=== PATIENT | female | born 1985 | race Caucasian/White ===

== ENCOUNTER 2023-03-12 21:53 | Outpatient (OUT) | payer OTHER, SELFPAY ==
[2023-03-16 14:09] LABS: Age Gdln ACOG Testing Note (.); HPV Aptima Negative (Negative); IGP, Aptima HPV, rfx 16/18,45 Note (.)
== END 2023-03-12 21:54 | disposition home or self-care (01) ==
LOC: LAB 21:57
PROVIDERS: Visit Provider Obstetrics & Gynecology
DX: Z01.419 Encounter for gynecological examination (general) (routine) without abnormal findings (principal)
CPT/HCPCS: 87624; G0145

== ENCOUNTER 2023-04-18 11:16 | Outpatient (REF) | payer OTHER, SELFPAY ==
--- OUTSIDE RECORDS SUMMARY | 2023-06-08 11:19 | XMS_ITS | CCD ---
Author Name Unknown Address [address] [place] [id number] Organization [facility] Care Team Providers Care Ncr Operator Name Role Phone SARABJIT, DR AKERS Admitting Unavailable SARABJIT, DR AKERS Attending Unavailable MISC, DR BRIDGES Primary Care Unavailable SARABJIT, DR AKERS Consulting Unavailable ZIEBER, DR MADAN rBiggs Consulting Unavailable SARABJIT, DR AKERS Admitting Unavailable SARABJIT, DR AKERS Attending Unavailable MISC, DR BRIDGES Primary Care Unavailable SARABJIT, DR AKERS Consulting Unavailable Blunt, Jose M Attending Unavailable Blunt, Jose M Primary Care Unavailable VELASQUEZ Guerrero Admitting Unavailable VELASQUEZ Guerrero Attending Unavailable Blunt, Jose M Primary Care Unavailable Nora ENG, Hadley RManuel Admitting Unavaila ble Nora PA, Hadley RManuel Attending Unavaila ble Blunt, Jose M Primary Care Unavailable Nora PA, Hadley R. Admitting Unavaila ble Nora PA, Hadley RManuel Attending Unavaila ble Blunt, Jose M Primary Care Unavailable Blunt, Jose M Primary Care Unavailable Omley, Hadley H Admitting Unavailable Omley, Hadley H Attending Unavailable Blunt, Jose M Attending Unavailable Blunt, Jose M Primary Care Unavailable Blunt, Jose M Attending Unavailable Blunt, Jose M Primary Care Unavailable Blunt, Jose M Attending Unavailable Blunt, Jose M Primary Care Unavailable Blunt, Jose M Attending Unavailable Blunt, Jose M Primary Care Unavailable OSWALD WHIPPLE Attending Unavailable OSWALD WHIPPLE Attending Unavailable Allergies Allergy Classification Reported Allergen(s) Allergy Type Date of Onset Reaction(s) Facility (2 sources) Levamisole; Translations: [Phenergan] Drug Allergy 12-12-2016 [facility] Repository (1 source) Promethazine; Translations: [promethazine] Drug Allergy [facility] Repository Problems Problem Classification Problem Date Documented Date Episodic/Chronic Immunizations and screening for infectious disease (1 source) Encounter for screening for human papillomavirus (HPV); Translations: [ENC SCREENING HUMAN PAPILLOMAVIRUS] Onset: 03-06-2022 Episodic Other screening for suspected conditions (not mental disorders or infectious disease) (8 sources) Encounter for screening mammogram for malignant neoplasm of breast; Translations: [Encounter for screening for malignant neoplasm of cervix] Onset: 03-01-2022 Episodic Residual codes; unclassified (1 source) Family history of malignant neoplasm of breast; Translations: [FAMILY HX MALIG NEOPLASM OF BREAST] Onset: 03-18-2022 Episodic Results Test Name Value Interpretation Reference Range Facility Coding Summaryon 12-28-2022 Coding Summary HTMLBase 64 EjlanzcqASa5rDt+PGhlY WQ+PK5XKDJuQ96qnECsyH 3zO5JTCJzGQlruWGITJNl JRlBvphKfMV3quHOuPBWx IC8+TC6pLMLwGburmPPwi 4Z9xTL6D31vvm5uYTryzD O7OLAiZcRsgmebv9gmjAv 6IDcuNmluOyBt FMBofC23QOJ4sD94Rx03n EBinOGwq8xdgQw9HuLzOQ RnWGL4xQnsXUeup8XiIPY sG34ugLMxl3M8 KMIknZppjHRjEwJhuSQ5x L6dFLkfljnzm1uopnibBu g0oa22iBQjj9O7fBG0X6T usvI8ZDCgqKPl FlkygRSBfD5pqspfk7yrq bndWlNjQJOzXHa1AOt3SP RdwEitBlWzFH16IER2OAI gbcSpM9SiUZMg rLcbPdT5i9F2Hx0CF1FSG klhR3BHKDJGPGydoCQ+PC 08ml71F4SpBkhlQpc9TSE pZTZ8mOI0qZ2d YAOtMRxux2P6kPE7R9Faa zRfxt4sv6zxGOTnNGfwX6 6ayBDou7V9IIYttRB8TGL udSuePpJeoN96 Oyc+BGGjkRafo5EqIfvtx 8ikh1vpiNa7YtpoJHBecx LddAbjXGK5c1KjAo2nIJV ovGL0iHF3cP6q BfUgQeF6NZnfH483EaJdk GEsDkavM76uS5XhxVO+PH VrZuw1VLDkiOzzZU2hE5V hZGRpbmctbGVm wKbwYW6sWCNyqtmdGUJiy P3aDFBzE5p3SjJcRqA4ZE dsS7HuBGIwarglBv08aV9 tMhJlTjO4ODqh R1PcpsJ1GXQnbTNuETnrE NJ9J37wb0J3SSKrLGIkNU Q1oCW5oA8reNfjbbjsgPE mdDsgdmVydGlj INssAKtsV918NNWfhKgmQ kNvZGluZyBEYXRlOiAgMD kvMjEvMjAyMzwvdGQ+PHR tNBX9yXqiCIAj iLPtGKxdVp4awBxdzAxoQ L7mTUIifaeeVIYivF6cIH GctASgrSqeBD2tYSAayfr xg475BuRhAYK3 ECLlxYLnN0JldI5rRiNhP QYpSRRaG0LhgKIlRVwrW5 20HZsvFfE1ZRGgeiJoQ5U sLWFsaWduOiB0 p8X4Un5Tt5XfxcuaF9Ryz XAiIpDoFnwvQAi5J2OcTm wvdHI+UC23CRLwFU45ZVh 3EQI0qVcxWFhs VVCuQ1OdgD1dOjKfYGCeL GRkOyc+PHRhYmxlIHdpZH RoPScxMDAlJyBzdHlsZT0 fWa1xQLIxGBIh xEkbgVHrNhGkc7zyDRQqU CjjIQ4dnNfgH6WliEX8UJ Ksy4q6Hk49Y56dY5EmlBW +YEQfaNY4pXD6 hK8cLsBoEpQ7RPwyC207S zWbpHKhThpoa1wdw7umhE r7UpX4KHQzfwXkjFnyOAW 8y4FlFv53E92y IHdpZHRoPSIxNSUiIHZhb Egxiy8xuR4wWb1+PGNvbC T3uDM2yG1lEzVrNoS9TDb bB481IcCowNCe Ulkur8eux1yisYa3ZtNzV XUakhIkbStgGWF1z0VpKj 60H3DssRdgi3AeMxq4ms8 8dIRhf0N3lYJ8 H5TrGNKpsplutXDizHtyP D7lNURqngpqHFNdhL1jZY ZfG5q4HsHnSfW6GOovQ4M oqbM1TIPohEKw XCGteATGzW3qcewwh2fil mkzGxZlWTLbFUm2FXi4KP VxhUzeMzWdWZM1JfT1IUO 1yMEwxR3qsYgg adbqsC3mUdg+KYT2jRNna SRYKX8gFqtzqXI+PHRkIH I1kSndAMnpPRNxwG0sPLZ mN7d3IvNzCjQ4 HWmyM1CowlH6WBXauMEcR AUjoVWLzW3zfzmqo0zife eeYzBfLDFbDQu7IZk3PXX saWduOiBsZWZ0 KdD8OVK4jCDxjS4uzWjwd lpfzP6bVaq+QmlydGggRG F8ETj9P7SkMzk4VFBcbVn fCW7pcIVqEZpy Gy6afTnpdBsaKL2uXNZwf dwbn190LmBtk8hcBGVcrI LnYWqpERU5T04fw6G4IXU hWPPgKRR8zYG2 qH7fwOfvdcbniHXlsLadu iMbdYuaDWmrOCpzC699SA EooZopTdDtOJd0Q6EhXul 1OPOybEakPX5t tIEaILriRz8qsAetpAypB T1kFRBpxvzki693FgQod1 rvMTKzxGXwPRzzKZX2V70 hx9W8KSEtCVXt FXT2xPH4tB7akKelenuhy GVmdDsgdmVydGljYWwtYW vdX929WGDzfTsxZsLxoVl 1R8ScNfr5FTMt nExkJJ3nuHKvXGodAk7ax RfohIafKG9oTUIsqlbzv5 05VxEou0vtYCEkvNXzBXv mIIR6H27vm4W5 NEIdGJJbNKV5wKM7tT3sj GlnbjogbGVmdDsgdmVydG cdJLqiMAnqH852KGXjqNn nPlBhdGllbnQg VCihMWc2L1ExTtwsvTA+P Q64PXDnAY67lADguYPjy5 dlfHd1HbHkEIHhQWI4iSj zNSfan6IjXURx K21ivLZbm0S7BKHqfLubb SZuKuPcvWX6oE7mMBtwio pxy3hzbqufZkjpy1mcur9 8rU73G20yNCkd ZHRoPSIzMCUiIHZhbGlnb m3ciE6bDz6+DPPggYK4yZ Y9vE0iZHEkAfW7FHuaJ56 9InRvcCIvPjxj i8lei2ffpZz3NzJ1ABMgm tOxjYzqVGY1s2PrBu52V0 9sIHdpZHRoPSIyMCUiIHZ ulLjppi6ndU2t Ii8+BBTpdOX3nKI2wI5yT dGkTiE0XXemM540HdQsjU TmObwmA08tC8KrrEY+PHR lTnr2NSBxuNvy HH0cvDIjDFhaMf2nLKS0A dJtUpKlNRghX9NgPZRhuf oofcuajUU3RJPtGSUvhR9 5Zm9kjJzxUSTr eJOHcF7rymkyq8geiegqO bMqVQZcVOh3RZs7QTRxmY blZlFbQJQ4MyS3EAW3wTR xkM1qlNdjydbk yN8kK2NwMQOepydtKs65p K8hSzJrLkH8SRzdLqt+RU LCC38ALzafGokGF0xQKSX NEoJTKG21EK09 xGLcy0E3pOM9F5UoWFPhv tizvhfujMO1JIJpJNPowA 25kSNoOIxjTp9jb6Z3d58 8HJPzZZLubX37 Ue1zvHapCLSrmPASqF6pr xtwt1wulxiuDiAgEHUeTK r8ZWj6ADEebPizJgJpOTU 4FsX6ZJG5uGDn pG7tlGecgbrdmO4uMms+M HMyOGEgYCp3ISsnwSJ+PH IeVPJ7xEfpHBhyMVMgoN9 hUOInS9v4WmAe GrD9CFilO2FxJWGiygjjK u32sV1lQgGuWvB1LRijU3 NbuoZ3QCLzmZMbGLfhBXA 8T25hs2W6NTOr DWZfOJK2zPB4uT6qoHdcd jogbGVmdDsgdmVydGljYW kcRAcdN872FJNrqMvlHlU 7WSmsQUAjZD30 DU17pRVsn0Q0oBB7U8GbC IBkeikwuhpggNC5BPNiWL FnqL78yDChFUpnCm4xw0B 0c541POXcVXWy dX18Uv1cuOumGWZpeAHAh G6pspruo1witrkuVnGaVH IlHAi8XZd5EUQflWqqSzQ hJTC4JiR7OPB5 sPEgzG8syTnflssynC2aB yc+WlZYTPwLJV47IA93yH Vkm9Y9iMG4H0GuSZHorxa edctiwLW1WINs DPNyhA26uIFwMBxlVt7da 1R3x708CHCcLDJtaQ54Cw 6opYnlOBZqnLTDcY2xfxl ig1kgfcaeLiGo ABJsZRe2WLv5CASqiDzdB xXoNSU4PkI3OMJ5jAZmjL 6ogShpodqobX5uCfp+T1A 0V3VxVgbnvIO+ UF01DPDgVY23oFAhmQIiv 5ervVy6ZxUbGWOcMNB2jD hmASkzi7ReBQLmU84czLM as9X4ZFXptQuf nNLjLrOafGS0jB7jSFnct zrpp7apejfpNqeeh7fast 76cO97L15vDIrtRVOfCAP zMCUiIHZhbGln dx1xxB5nEh4+GDDrsCH2j HP2eY5qVnTcYjA5XFijX0 02MmSbeMBxYjont6yzx5y juBz8FuSeQJGr btZkdUotXVY0b8EdSa61J 29sIHdpZHRoPSIyMCUiIH IlcCpvdp5bvK0gSk7+PC9 of0fsgv09jO78 dHI+QCGiGOR2rIwkLAqxZ RMaaF5aXFyqBmF6GVMpQk TrvU59pMAuDUfrNy6rcPr edXaiLS9yENIl tkzvb113YuVax2mpMFPin HWgVFziOLA7B41kf4Q9XM FaWIOmNUR4hLB4nF1ahGi nbjogbGVmdDsg esSnqBkqROwjWTwzN225J KJhcTqzIgYurIPjU9hvmj GBXL4rAbrssUL+PHRkIHN 0eWxlPSdwYWRk yQ4mDJLtA3r1KbPyEwT8F ZnjK8AcuhE7KJGfuXLwAT NwgMHQtM1imtlsh6wdluh gIzAwMDAwMDt0 UTj1OEUhtBsiAuEfIQK0E rC9WKF1rVFuoU7pcHxsgu ykzC6qTll+RklOOjwvdGQ +NZSeYBV8hAtt XJffZTPpaX8dJPDnL5y2N pFmIlU5WNcmK0OtlfE5HA FjqZEgBDGlcNJZgG7nnve bu9ineubcGcUf KNIuGMh3ZOb4HALgjBkcM zWcTUJ9YgB6NRG0xHYaeI 8xoOzzsenrmY2hYvu+TVJ OOjwvdGQ+PHRk OAI6zRoxFOwnJSOymB5vP CWcN5m9TdGoDkL8KVxyY8 OqgiS8ZOSyxBWnTCAepLK YcG8izxozr3au yfljEoEmMOLqJHa1MCm7P IBmlObuCxVyFHZ8LjL0BI C3bDKjcE9veWhwzdlnnH1 wOyc+TRO2IWB0 XQ47ON26D3FgOiodvGTsh +PHRhYmxlIHdpZHRoPS kpFTZaVzClhQaaRI5jFb7 yZGVyLWNvbGxh cHN (more content not included)... Normal [facility] C Throaton 12-22-2022 C Throat Ordered by Discern. Normal throat osmar isolated No pathogens isolated Normal [facility] Comment on above: Performed By: #### [id number] ####[facility] (DEFAULT)[address] [place] [address] ED Clinical Summaryon 2022 ED Clinical Summary [facility] ? Urgent Care [address] [place], [place] [id number] Clinical Summary PERSON INFORMATION Name: MARTINA PACK Age: 37 Years Sex: FEMALE : 1985 MRN: Acct#: Visit Reason: Throat pain - Adult; CONGESTION, SORE THROAT, COUGH Arrival: 12/20/2022 09:57:20 Discharge: 12/20/2022 11:04:00 LOS: 000 01:07 Check In: 12/20/2022 09:57:20 Checkout: 12/20/2022 11:04:00 Address: [address] [place] [address] PCP: Jose Larson MD PROVIDER INFORMATION Provider Role Assigned Unassigned Mindy Bailey [employer]ARY Nurse 12/20/2022 10:00:43 Maria Guadalupe Guerrero PA-C ED PA 12/20/2022 10:03:32 VITALS INFORMATION Vital Sign Triage Latest Temperature Tympanic Temperature Temporal Artery Pulse Rate O2 Sat 98 % 98 % Respiratory Rate Blood Pressure /60 mmHg /60 mmHg MEDICAL INFORMATION Medications Given: Allergy Information: Phenergan; promethazine PHYSICIAN DOCUMENTATION DISCHARGE INFORMATION: Discharge Disposition: Home Discharge Location: Home PATIENT EDUCATION INFORMATION Instructions: Sore Throat Follow-Up: With: Address: When: Jose Larson MD R [facility] [id number] [address] DIAGNOSIS: 1:Viral pharyngitis Patient Understands: Comment: Normal [facility] ED Patient Summaryon 023 ED Patient Summary [facility] ? Urgent Care [address] [place] [id number] PATIENT DISCHARGE INSTRUCTIONS Patient Information Name: MARTINA PACK Age: 37 Years Date of : 1985 Reason For Visit: Throat pain - Adult; CONGESTION, SORE THROAT, COUGH Arrival Time: 12/20/2022 09:57:20 Primary Care Physician: Jose Larson MD Attending Physician: Maria Guadalupe Guerrero PA-C Comment: Patient Education With: Address: When: Jose Larson MD [facility] [id number] [address] Sore Throat A sore throat is pain, burning, irritation, or scratchiness in the throat. When you have a sore throat, you may feel pain or tenderness in your throat when you swallow or talk. Many things can cause a sore throat, including: ? An infection. ? Seasonal allergies. ? Dryness in the air. ? Irritants, such as smoke or pollution. ? Radiation treatment for cancer. ? Gastroesophageal reflux disease (GERD). ? A tumor. A sore throat is often the first sign of another sickness. It may happen with other symptoms, such as coughing, sneezing, fever, and swollen neck glands. Most sore throats go away without medical treatment. Follow these instructions at home: Medicines ? Take pafx-tsd-qvelqof and prescription medicines only as told by your health care provider. ? Children often get sore throats. Do not give your child aspirin because of the association with Nba's syndrome. ? Use throat sprays to soothe your throat as told by your health care provider. Managing pain To help with pain, try: ? Sipping warm liquids, such as broth, herbal tea, or warm water. ? Eating or drinking cold or frozen liquids, such as frozen ice pops. ? Gargling with a mixture of salt and water 3?4 times a day or as needed. To make salt water, completely dissolve ??1 tsp (3?6 g) of salt in 1 cup (237 mL) of warm water. ? Sucking on hard candy or throat lozenges. ? Putting a cool-mist humidifier in your bedroom at night to moisten the air. ? Sitting in the bathroom with the door closed for 5?10 minutes while you run hot water in the shower. General instructions ? Do not use any products that contain nicotine or tobacco. These products include cigarettes, chewing tobacco, and vaping devices, such as e-cigarettes. If you need help quitting, ask your health care provider. ? Rest as needed. ? Drink enough fluid to keep your urine pale yellow. ? Wash your hands often with soap and water for at least 20 seconds. If soap and water are not available, use hand jewelry facer. Contact a health care provider if: ? You have a fever for more than 2?3 days. ? You have symptoms that last for more than 2?3 days. ? Your throat does not get better within 7 days. ? You have a fever and your symptoms suddenly get worse. Get help right away if: ? You have difficulty breathing. ? You cannot swallow fluids, soft foods, or your saliva. ? You have increased swelling in your throat or neck. ? You have persistent nausea and vomiting. These symptoms may represent a serious problem that is an emergency. Do not wait to see if the symptoms will go away. Get medical help right away. Call your local emergency services (911 in the [place] Do not drive yourself to the hospital. Summary ? A sore throat is pain, burning, irritation, or scratchiness in the throat. Many things can cause a sore throat. ? Take qgqy-iag-peovaqx medicines only as told by your health care provider. ? Rest as needed. ? Drink enough fluid to keep your urine pale yellow. ? Contact a health care provider if your throat does not get better within 7 days. This information is not intended to replace advice given to you by your health care provider. Make sure you discuss any questions you have with your health care provider. Document Revised: 06/22/2021 Document Reviewed: 06/22/2021 ElseLecture[employer] Patient Education ? 2022 iPrint. Medication Information: The exam and treatment you received today in the [facility] Emergency Department were for an urgent problem and are not intended as complete care. It is important for you to follow up with a doctor, nurse practitioner, or physician?s administrative assistant receptionist for ongoing care. If your symptoms become worse or you do not improve as expected and you are unable to reach your usual health care provider, you should return to the Emergency Department, we are available 24 hours a day. For those patients who have received Radiology results, the interpretation of your X-ray as given to you by our Emergency Department physician is only a preliminary report. The Radiologist will review your films and if there is a change in the diagnosis you will be notified by phone. Please make sure you have provided a working phone number so we can reach you if necessary. In the event that you had a lab cultu (more content not included)... Normal [facility] Strep Aon 12-20-2022 Strep procedure control Pass Normal [facility] Comment on above: Performed By: #### [id number] ####[facility] (DEFAULT)[address] [place] [address] Streptococcus A Negative Normal Negative [facility] Comment on above: Performed By: #### [id number] ####[facility] (DEFAULT)[address] [place] [address] Coding Summaryon 08-11-2022 Coding Summary HTMLBase 64 LedvrrefSXk4bTj+PGhlY WQ+VU9AEREdA27wiXFbqO 0RF1dFBS4ZKVXFRGJKZR5 TDT3xqQZ8YIwxB3OacvVa BhjlaRPeQP04XEy3NNF9p PdbIPqvgM6bcOToP0q2Ol QxXK21eC35ENahWXLcWiK 3LjZpbjsgbWFy G9smIhZzyRCmPpq+PHRhY mxlIHdpZHRoPScxMDAlJy LfiLadYC0mAh0sCLCuBOW vbGxhcHNlOiBj k0hxVQBrBIycJO8rhTiiC 5HqmBK5MUPsy9k9Uy33rV I+IWGgWRL3vLgdRChen94 0IdTdn2sqLUW9 nNIbJQmiIPU4Q55be9E0N IPjDOAaHAC7jFF9cU6csY pfytmwW9LthDSvEwQ8HGR 7xVXmsO4wmWmi woqhvM9eYff+I67XOF0UR UJPUK6DUvc7Q7BvUqdfyD I+IE26UTUrFY24aERbtAH rr2cxnPd7EcNj JLKuGNK2wTgiDLqch2MxZ RPjA80hpGNfp9M6ADSgvW svoVOdBvHnmTV3uV7fTFb wqectw7ijplch Wwymf2thab50kD81S28yG ZvbZQEaXTW6GOWxYVTpkE ibnw6snX8mUb4+MMjan8g ka3ifkJq8LyBq HCGerjGilKznHFF2c7JfI x85T7ZjhYnwy5IxEjr7pf 83dYGtj7N8jQR5TQoqZSK blL2yUQmcNzY6 LCHzClSwuL71wCYmVDzxN f4hzDwerImkBA9aXRRreh heYNKlwL6zBVJpoLTdgQt qEX1bGXFpnhyr w144JtEdKBT7YIQhaWEdG 1SmcN9hLaSnNRDcZDYiC8 GgfMXvODuoH159DOstAfM 5TUUerdAkK8Ro ONOngHcrIhN7g5S4Zv9Er 2DvohotEYS3PUhqTOL6Xj E0XjIuLmT9I9IcEkr6KOX rjTpwHV5jT6Av UOPlspoljnnnvEZ0JIVsV CLsvQ84iLGzDJpnGu0iu4 S5s819YBRqKIXwuZ29Tl0 udDogMTBwdCBU oF8rfgqmt0pyanjySiPjX EJwISw0YZa0EMUhuZkrYz SgDLC1MzH2CJM3rAPltC3 rcJeelgrowX4p Oyc+R22cdQ6yIDL2DQP9w fwyUYKrzcBpZS06AW22E5 RyPjwvdGFibGU+PGRpdiB exEynKO2fZjKx a0yxv7VmGMnnT9BwMVAmT DqwTyq4HWBrWIT1xZQ8yE 3sTGNiHBjyv3D1rRP4Q7M vgyVjuj3vj4wi QHQsOByyL16rlTZmv4E3G SDbdFM1IWLhuWddXqWzoD 93Oyc+WZDcdJqkb8EcMyp wk1waq3kjwYk8 OyKyWQCtesAtpLtaJCN9y 9PbGk81Y65fFIdsADTtIS UmTEXxGPTswZhxxk2hdR2 wIi8+PGNvbCB3 wKS5mF3tRWToHrD1CGsvI 267LlOugFEvOwppy3jic2 jxdWw4XeEsMNGtxwQdiXx yXFH4w0JiQa51 U36zPGxxDEXpEZQyQOXkV RFwrMuutq8miB7jYh3+PC 4jz7erat89vT35hKZ+PHR gANA8gIukHQgp YSLkoA0nZOmtAkV5AUHeY kCmxH64qFTtQEdbVf1phK edpYgzVR3nPGZstbhvl13 0LxDki9ijJDAp nXSbYZdtYMS5I99kg6D0E NLiEGFsCVI9dUV4rB9feW lnbjogbGVmdDsgdmVydGl vOBqwAJxuJ922 IHRvcDsnPlBhdGllbnQgT qQdOPn4N0EoSvz9NKQvmS mzXF2ooTApXWspEh5bhSa euIhoMV6yZFGg gcqpb587TvZsn8viRVAtv LMeRWsyWLF9K36dy5X2DL IdOSYwLPK8fID6aG9kmGj nbjogbGVmdDsg ijOslLfiUZfnMTrmC429O HRvcDsnPkJpcnRoIERhdG P8PK36HW76yVDhy4G6vOO 8S3GuDMUqxwom vrnccKF8HEOsFEYmtC30L p2skItiUt8eHWTqAKQ3BM SsgTCpZ7DkrA6mWeRgUPN qJBPyY2OoaRUg TTrqP231DOfcVeC2NQXqj sUzD2JkDWGfxCqlMjE5e6 F7Oq2LN1J3ZI42LR41rKS cf4P7gGI4R3Ru CTVavtiwzmsgtMK6SOPpO QYrnY23Hb9emPsiWl6vGH LhOUP6TCYpiFVyS5CccP7 yOiAjMDAwMDAw A4VojCUuVMmbD220BPrnX oL7NCDikqEwX1SwHQPbfQ ywPaV4u3Z2Nl0BWKv4QC9 7OQ77tXQzs5D3 sSR6N7YwHGEmvzbufcina SA6RLCtLRFvxE27Xd9yxI pgRh5aXIIgROA4KPGmsSG rA4SsdU5yLpOo XIOtIWRuS4PikEGxZXtkB 262GMfvXkU9CYTleaEkT7 XdFVUrdNooJcY3q1N9Yx1 SMOMyKV02UXG6 dLA2DO77PN19T2XgIxnvt GFibGU+PHRhYmxlIHdpZH RoPScxMDAlJyBzdHlsZT0 pJi7dATWnFMZz jLssoVDaIePrl1hyMSYcC UfwVJ5dmBitZ6OxtHM5OK Qno8f2Zi88M55tO6WliDF +YLPutBK1kKB8 wE9tPlSlEmG9SQwyQ571G xEabHUmGhdwz1lui5mfiD u3BiJ3OBLmrzPoaIeyDKE 4z3YfGk94H52k IHdpZHRoPSIxNSUiIHZhb Yfpky7umM7fBt5+PGNvbC P3wUP1cU1qTzLaYjB3JOl sG206CuSvuQBn Fyorc3asd4jigLr6LgEpP YLwuuQmpAmcXYF1g4RbTi 12N7YfmNzky9UqAdh4sr9 0dWYpb2O3jDT4 S4RaIDEaddnbuJNmwAysZ V6dXLTxpptyOQOoaP4eBO JuX9m5ZtPsPhV3DTinL3Y hgzA2FUNxnLUi BQmbJRT0Z53zk7N9AWTeY PYlOGO5dUS2kT0tcQfjqb ogbGVmdDsgdmVydGljYWw uDDfmP890SYPk nEjeOIXjwP4iPGLfgDTnw GvwES9zDKMdtjsbQzFOCJ 2GCKFzEI0EC29ZZVYJOR7 FRTwvdGQ+PHRk VWG3wPiuGTbvUNYgaY7oK IYqD3a5BpPnRpP9CCaeK2 KmXSTyqcqjOz96kJ6wRvB rKvE4TNwbS2Jh xnL6GNJvzXNmETozVWY2M 17op7M2OKGcONAxNEA7lJ A3oR2gsHmstfwvuYLtaCm gdmVydGljYWwt QKkxM985UVKwiXydSkAtN xF8GtP8IMY7J5CpUbe5OB QhmSzlSL3zvCSeNUbdEx9 kkSoemMytHD7h ODFghqyuLFCjaT1kJIBhr WOhjKkjHN8vMSUnklxtc5 35KcUuDBD1CPSgmAJcG7Z mhC9vDuCvLDTj KPAwG4GrzVMiEPlbI175L MdsJvR3IVVyssTfA0PcQJ KnnMdoIlD3h4G1Gc7jAFN ZZWFyczwvdGQ+ PFXoCTS4xDagWZgeRYKwp J2eHIUqA9f4UjExRqL7TY xhT7EbOIWwbzozHb80kP8 tKiKlEfC7KMvs H1QbsnF1CGJqdYObQVueK MJ3B02xn0J8WOQlMVNiUX K4jML9cZ7ujIeyhnnblFW mdDsgdmVydGlj MHaxWQopP178JAEtxQmvO kZFTUFMRTwvdGQ+PHRkIH J8kHlvAYsfXAEsjW9nOQL hC0o2OyBwWnE4 DWadE8TuZWDweowuSw85b M1vEdDxGeR9ONeoP3Bxyp N2NJXqmXTlRNngRUX7D79 mp9X2UCGvFMLx QXQ5iME8qA9bkVaulnoav GVmdDsgdmVydGljYWwtYW ddK714FNThbChgTfFtCSV gPU2wqYpxiQY+ AK32te85U3YpFcwdJno7L MXxJRC3yGY6xA1rVWKaVL qcz7G3mDN9I5WwxdBhgs9 oh9yoSOOrXKcn T56zrSMmy2R1CCIjuHJ0I QJizObaPgVyeY92Mbp+PG BzvUiwm3CfQjkbf7tap0z deJn7HqRlUNKe ueAzdQzgOBN2e6MeZk05E 29sIHdpZHRoPSIzMCUiIH OisZnvap5cmR3yNr1+PGN rgLS2dLC2eM5y PjObMwL4IEvpO285ZmDlj IPpFizew6sdj0tyjPl5Ur QnOQSxyoWndAzdDEP5r1A fAi96Z9MrvFwa g1ZtQfc0vb94yFQzj3F8y LP7J7IuALVwpqkgzSKuaN yaDM6wVQPcpgzxQHQxoI7 tKFStD9j7LvVy SnF1CVgiK5JqolF1ZBUed NDhBMEmzMDApC3dxvtvt8 xekmdsYtKuOPQdJWw6ZPq 0LWFsaWduOiBs UTN1NtD5IWD9uYQbfD4zt YjhqydauV7hJjf+UGh5c2 aaiOUkGG7yvJQ2KC69SD9 0hLGgo9P1cIY9 E7UzERBwoptxahqxdQW3M SIjAHVofC78Ql5tbWtlHa 6aBUBxREA8MTMlyKLaZ7Q ouP4zAsVoQZWp UOCwS7SjfLOqTUeuT330W AsjScH7LYSbcxSvY6OhTS SjzVwaFnM0g7H8Qj6SXO8 5XO23YM63aMCa i5J3cIP6V0XbNNBqckeam qwnsQI5PZIySKXwyU60Fm 8nwWbfId3cEGEfSSL9OLN anFCiX5SoeU7e EwDbZLBtEVPsC7KtoBDkU DtnG093KOciKxN9MRZmtj GsL2WiMGFdsCygAcR3q9X 9As0YBd33FM38 TX88aOQvu9Y6pMD6B2BgS NEldlhszrmjtQB5CFFlWN KvtF92Fw8fmZiiZn5yYOX aUYB7PVTdnFFn J4LnkJ0nGcIkLLZdXMSrY 6BbfSWjLXgvY861VOljIc Y7LWKkhxMcP9OfHUCrkQl bFsR9z1Z0Gq4E AKtkjbf1S7BcVjadpPN+P O06LXDqHV61pXXniXBcm4 yukBz0KtSvJBZdXQJ3yLa lSPrzu3EtLYPj Y29 (more content not included)... Normal [facility] .Auto Diff 1on 08-06-2022 Auto Vance % 4 % Normal -12 [facility] Comment on above: Performed By: #### 2 [id number], [id number], [id number], 8542988, 48113436, [id number], [id number] ####[facility] (DEFAULT)[address] [place] [address] Baso Abs# 0.0 x10 Normal 0.0-0.2 [facility] Comment on above: Performed By: #### 2 256774, [id number], [id number], 4839518, 09781253, [id number], 2475163 ####[facility] (DEFAULT)[address] [place] [address] Basophils/100 WBC (Bld) 0.4 % Normal 0.2-2.0 [facility] Comment on above: Performed By: #### 2 878654, [id number], [id number], 7627151, 24212209, 6387951287, 2517201 ####[facility] (DEFAULT)[address] [place] [address] Eos Abs# 0.0 x10 Normal 0.0-0.4 [facility] Comment on above: Performed By: #### 2 188287, [id number], [id number], 6747768, 83552303, [id number], 2621895 ####[facility] (DEFAULT)[address] [place] [address] Eosinophils/100 WBC (Bld) 0.6 % Low 0.9-4.0 [facility] Comment on above: Performed By: #### 2 124793, [id number], [id number], 0863451, 68742512, 1972104068, 2856910 ####[facility] (DEFAULT)[address] [place] [address] Lymph Abs# 0.9 x10 Low 1.3-2.9 [facility] Comment on above: Performed By: #### 2 828427, [id number], [id number], 3866593, 75638557, [id number], 0048467 ####[facility] (DEFAULT)[address] [place] [address] Lymphocytes/100 WBC (Bld) 11 % Low 14-48 [facility] Comment on above: Performed By: #### 2 046477, [id number], 8857832804, 2595439, 85736575, 0823994016, 2121915 ####[facility] (DEFAULT)[address] [place] [address] Vance Abs# 0.3 x10 Normal 0.0-0.8 [facility] Comment on above: Performed By: #### 2 247441, [id number], 3575569178, 0913644, 37562630, 8896827049, 5151638 ####[facility] (DEFAULT)[address] [place] [address] Neut Abs# 6.9 x10 Normal 1.5-9.2 [facility] Comment on above: Performed By: #### 2 514820, [id number], 8652692810, 9062855, 18370576, 9811817865, 0480424 ####[facility] (DEFAULT)[address] [place] [address] Neutrophils/100 WBC (Bld) 84 % Normal 44-88 [facility] Comment on above: Performed By: #### 2 904480, [id number], 3576295965, 2806674, 06906590, 4022984820, 8504990 ####[facility] (DEFAULT)[address] [place] [address] CBC w/ Auto Diffon 3 Erythrocyte distribution width (RBC) [Ratio] 12.9 % Normal 11.5-15.0 [facility] Comment on above: Performed By: #### 2 946075, [id number], [id number], 9764827, 45253042, 7815936682, 7053694 #### [facility] (DEFAULT) [address] [place] [address] Hematocrit (Bld) [Volume fraction] 39.8 % Normal 33.7-40.4 [facility] Comment on above: Performed By: #### 2 795920, [id number], 1072826824, 6853605, 72312585, 3233817496, 8545357 #### [facility] (DEFAULT) [address] [place] [address] Hemoglobin (Bld) [Mass/Vol] 13.3 g/dL Normal 11.3-15.9 [facility] Comment on above: Performed By: #### 2 428346, [id number], 3166321081, 4623161, 32631796, 0751655794, 1510685 #### [facility] (DEFAULT) [address] [place] [address] Man Diff? Auto Invalid Interpretation Code [facility] Comment on above: Performed By: #### 2 937381, [id number], 1473373751, 4300150, 38369129, 3355543129, 2242638 #### [facility] (DEFAULT) [address] [place] [address] MCH (RBC) [Entitic mass] 29 pg Normal 24-34 [facility] Comment on above: Performed By: #### 2 063921, [id number], 7729242105, 5141737, 84838928, 7373818328, 6436094 #### [facility] (DEFAULT) [address] [place] [address] MCHC (RBC) [Mass/Vol] 33 g/dL Normal 26-37 [facility] Comment on above: Performed By: #### 2 531179, [id number], 7964957006, 3485204, 27904856, 1072803182, 7315496 #### [facility] (DEFAULT) [address] [place] [address] MCV (RBC) [Entitic vol] 87 fL Normal 81-100 [facility] Comment on above: Performed By: #### 2 316523, [id number], 2956040735, 7563292, 41628424, 9294905875, 2393812 #### [facility] (DEFAULT) [address] [place] [address] Platelet 289 x10 Normal 138-427 [facility] Comment on above: Performed By: #### 2 [id number], [id number], [id number], 7091357, 90725952, [id number], [id number] #### [facility] (DEFAULT) [address] [place] [address] 73621 Platelet mean volume (Bld) [Entitic vol] 8.6 fL Normal 6.3-10.2 [facility] Comment on above: Performed By: #### 2 055526, [id number], [id number], 3687179, 24885062, [id number], 0828626 #### [facility] (DEFAULT) [address] [place] [address] RBC 4.55 x10 Normal 3.70-5.30 [facility] Comment on above: Performed By: #### 2 457777, [id number], [id number], 6986904, 97166234, [id number], 3575442 #### [facility] (DEFAULT) [address] [place] [address] 61735 WBC 8.2 x10 Normal 3.5-10.5 [facility] Comment on above: Performed By: #### 2 478047, [id number], 9055081463, 3953766, 51541716, [id number], 2929845 #### [facility] (DEFAULT) [address] [place] [address] 87843 CMP Standardon 08-06-2022 Breakpoint Chem Normal [facility] Comment on above: Performed By: #### 2 078899, [id number], [id number], 9438744, 39051732, 2430129553, 7362852 ####[facility] (DEFAULT)[address] [place] [address] 47776 eGFR Non AA >60 Invalid Interpretation Code [facility] Comment on above: Performed By: #### 2 342396, [id number], [id number], 1913177, 02131950, 7250007559, 5857464 ####[facility] (DEFAULT)[address] [place] [address] 78038 eGFR AA >60 Invalid Interpretation Code [facility] Comment on above: Performed By: #### 2 501303, [id number], [id number], 5893446, 97380194, [id number], 4884447 ####[facility] (DEFAULT)[address] [place] [address] 51495 Albumin [Mass/Vol] 3.8 g/dL Normal 3.5-5.0 [facility] Comment on above: Performed By: #### 2 978579, [id number], [id number], 4979485, 12501812, 3614359962, 9622767 ####[facility] (DEFAULT)[address] [place] [address] 72819 Albumin/Globulin [Mass ratio] 1.0 {ratio} Low 1.4-2.6 [facility] Comment on above: Performed By: #### 2 167342, [id number], 3389538658, 2429493, 51777412, 4998151109, 5750648 ####[facility] (DEFAULT)[address] [place] [address] 49055 Alk Phos 38 IU/L Normal 32-91 [facility] Comment on above: Performed By: #### 2 875696, [id number], 9786666401, 6525933, 22213575, 3258081518, 8804969 ####[facility] (DEFAULT)[address] [place] [address] 56865 ALT [Catalytic activity/Vol] 43.0 U/L Normal 14.0-54.0 [facility] Comment on above: Performed By: #### 2 451069, [id number], 7491231679, 6031604, 76362987, 2862569559, 8978315 ####[facility] (DEFAULT)[address] [place] [address] 31089 Anion gap [Moles/Vol] 15.3 mmol/L Normal 5.0-19.0 [facility] Comment on above: Performed By: #### 2 632504, 0907008359, 1903265559, 9632941, 20311857, 2173740299, 5913320 ####[facility] (DEFAULT)[address] [place] [address] 90492 AST [Catalytic activity/Vol] 42 U/L High 15-41 [facility] Comment on above: Performed By: #### 2 245527, [id number], 8049671576, 3601434, 72820544, 1904933354, 2464537 ####[facility] (DEFAULT)[address] [place] [address] 75140 Bili Total 0.9 mg/dL Normal 0.3-1.2 [facility] Comment on above: Performed By: #### 2 425129, [id number], 8365339482, 9627150, 06110483, 0958403754, 8479182 ####[facility] (DEFAULT)[address] [place] [address] 07256 Calcium [Mass/Vol] 9.1 mg/dL Normal 8.9-10.3 [facility] Comment on above: Performed By: #### 2 546342, [id number], 1896874260, 7403326, 79136676, 1471934761, 1215294 ####[facility] (DEFAULT)[address] [place] [address] 51837 Chloride [Moles/Vol] 106 mmol/L Normal 101-111 [facility] Comment on above: Performed By: #### 2 703836, 1757121623, 1817053206, 8826611, 87137425, 4344860036, 9214759 ####[facility] (DEFAULT)[address] [place] [address] 37950 CO2 [Moles/Vol] 21 mmol/L Normal 21-32 [facility] Comment on above: Performed By: #### 2 195584, [id number], 4733043381, 2492965, 37270052, 2266590920, 7255754 ####[facility] (DEFAULT)[address] [place] [address] 60046 Creatinine [Mass/Vol] 0.66 mg/dL Normal 0.60-1.30 [facility] Comment on above: Performed By: #### 2 786442, 6916572454, 0411641921, 7132812, 83703155, 5224036142, 0595813 ####[facility] (DEFAULT)[address] [place] [address] Globulin (S) [Mass/Vol] 3.8 g/dL Normal 1.5-4.3 [facility] Comment on above: Performed By: #### 2 215931, [id number], 3541087247, 9438269, 67909513, 7070643443, 2438792 ####[facility] (DEFAULT)[address] [place] [address] 71776 Glucose [Mass/Vol] 96.0 mg/dL Normal 74.0-118.0 [facility] Comment on above: Performed By: #### 2 870559, 6035679495, 1053151902, 7929558, 85517464, 6141213151, 6576872 ####[facility] (DEFAULT)[address] [place] [address] 36938 Osmolality 278 mOsm/L Invalid Interpretation Code [facility] Comment on above: Performed By: #### 2 147978, [id number], 2441077873, 6306353, 24093967, 1318031994, 8777457 ####[facility] (DEFAULT)[address] [place] [address] 56549 Potassium [Moles/Vol] 3.3 mmol/L Low 3.6-5.1 [facility] Comment on above: Performed By: #### 2 424000, [id number], 6360502571, 7253395, 95142774, 2546519810, 6945595 ####[facility] (DEFAULT)[address] [place] [address] 60225 Protein [Mass/Vol] 7.6 g/dL Normal 6.5-8.1 [facility] Comment on above: Performed By: #### 2 069577, 1166458889, 3337392960, 5688231, 77843333, 4879017973, 0785911 ####[facility] (DEFAULT)[address] [place] [address] 88544 Sodium [Moles/Vol] 139.0 mmol/L Normal 136.0-144.0 [facility] Comment on above: Performed By: #### 2 728920, 9773490569, 5461406032, 4999570, 06235531, 2581635959, 2503909 ####[facility] (DEFAULT)[address] [place] [address] 03717 Urea nitrogen [Mass/Vol] 13 mg/dL Normal 8-26 [facility] Comment on above: Performed By: #### 2 268740, 3394452408, 2127299558, 2644365, 87448753, 9805695733, 2655722 ####[facility] (DEFAULT)[address] [place] [address] 93082 Urea nitrogen/Creatinine [Mass ratio] 19.6 mg/mg High 4.6-16.2 [facility] Comment on above: Performed By: #### 2 998324, [id number], 8738296790, 0610781, 95783232, 9237764285, 0997498 ####[facility] (DEFAULT)[address] [place] [address] 11655 D-Dimeron 08-06-2022 D-Dimer 0.26 mg/L FEU Normal 0.19-0.50 [facility] Comment on above: Result Comment: The INNOVANCE D-Dimer assay (Cutoff Value of > 0.50) is intended for the use as an aid in the diagnosis of venous thromboembolism (VTE) deep vein thrombosis (DVT) or pulmonary embolism (PE). The measurement of D-Dimer should not be used as an aid in the diagnosis of VTE in patients with: ? Therapeutic dose anticoagulant therapy for >24 hours ? Fibrinolytic therapy within previous 7 days ? Trauma or surgery within previous 4 weeks ? Disseminated malignancies ? Aortic aneurysm ? Sepsis, sever infections, pneumonia, severe skin infections ? Liver cirrhosis ? Performed By: #### 2 766825, [id number], 6335045481, 3639531, 63083891, 3279390560, 6204575 ####[facility] (DEFAULT)[address] [place] [address] ED Clinical Summaryon 2022 ED Clinical Summary [facility] - Emergency Department [address] [place] [address] ED Clinical Summary PERSON INFORMATION Name: MARTINA PACK Age: 37 Years Sex: FEMALE : 1985 MRN: Acct#: Visit Reason: Vomiting; Vomiting; NAUSEA Arrival: 08/05/2022 21:44:34 Discharge: 08/06/2022 00:04:00 LOS: 000 02:20 Check In: 08/05/2022 21:44:34 Checkout:08/06/2022 00:04:00 Address: [address] [place] [address] PCP: Jose Larson MD PROVIDER INFORMATION Provider Role Assigned Unassigned Mary CARMICHAEL, Mansi ED Nurse 08/05/2022 21:47:25 Hadley Caba DO ED Provider 08/05/2022 22:00:09 VITALS INFORMATION Vital Sign Triage Latest Temperature Tympanic Temperature Temporal Artery Pulse Rate 79 bpm 79 bpm O2 Sat 100 % 100 % Respiratory Rate 18 br/min 18 br/min Blood Pressure /74 mmHg /74 mmHg MEDICAL INFORMATION Medications Given: Medication Dose Route Sodium Chloride 0.9% intravenous solution 1,000 mL 1000 mL Initial Volume 125 mL/hr IV Right Antecubital Fossa ondansetron (!-Zofran) 8 mg IV Push benzonatate 200 mg PO LORazepam (Ativan injection) 0.5 mg IV Push ondansetron (THP #1 Tab ondansetron 4 mg ODT Tab) 1 packet(s) PO ondansetron (THP #1 Tab ondansetron 4 mg ODT Tab) 1 packet(s) PO Allergy Information: Phenergan; promethazine PHYSICIAN DOCUMENTATION Patient: MARTINA PACK Age: 37 years Sex: FEMALE : 1985 Associated Diagnoses: Enteritis; Vomiting Author: Hadley Caba DO Basic Information Time seen: Date & time 08/05/2022 22:05:00. History source: Patient. Arrival mode: Private vehicle, walking. History limitation: None. History of Present Illness The patient presents with This patient presents to the emergency room for evaluation of vomiting which started just a couple hours ago, not related to the cough for which she has been treated with antibiotics recently, she is not on antibiotics at this time, states she has vomited several times, no diarrhea, denies any fever, took no medications for it, does not have any abdominal pain, states her bowel habits are normal, urine has been normal, states she is not , denies sore throat, has been taking medications for a respiratory infection at first thought to be an upper respiratory then thought to be pneumonia, she still has been coughing, again, she states she is not currently taking any antibiotics, cough is nonproductive, and seems to be persistent. She denies any index cases for this illness, but we have in the emergency room here seen numerous cases of vomiting and diarrhea over the past week to 10 days. This is rather typical for this area of the country. Every year. She is , non-smoker, no alcohol use, and is employed outside the home. Chronic medical conditions: None, denies diabetes, denies COPD or chronic lung conditions, denies cardiac conditions. There has been no blood in her vomit. On exam, she is pleasant alert, she appears younger than her stated age, she has some coughing, her HEENT exam reveals a moist mouth, tympanic membrane canal and pinna are normal, symmetric face precise speech pupils equal round reactive 2.5 mm no nystagmus tympanic membrane canal and pinna normal, there is no anterior posterior supraclavicular nodes, her lungs are clear, she coughs quite a bit but there is no expiratory wheezing, there is no rales, there is no areas of dullness, heart rate and rhythm are regular, PMI left chest, she has good radial dorsalis pedis pulses, the abdomen is soft without any discomfort, she has no hepatosplenomegaly, skin is warm and dry, skin turgor is pretty good, she is not tenting, her neurologic exam is symmetric and appropriate, and her psychiatric evaluation is relative to the chief complaint.. Health Status Allergies: Allergic Reactions (Selected) Mild Phenergan- Shakes. Promethazine- Shakes.. Medications: (Selected) Prescriptions Prescribed ZyrTEC 10 mg oral tablet: 10 mg = 1 tab(s), PO, Daily, 10 tab(s), 0 Refill(s). Past Medical/ Family/ Social History Family history: . Social history: Social & Psychosocial Habits Alcohol 07/18/2022 Alcohol Use: Current Type: Beer Frequency: 1-2 times per month 08/05/2022 Alcohol Use: Current Frequency: 1-2 times per month Substance Abuse 07/18/2022 Substance use: Never 08/05/2022 Substance use: Never Tobacco 07/18/2022 Smoking tobacco use: Former tobacco user, Never tobacco user Number used per day: QUIT 16 YRS AGO 08/05/2022 Smoking tobacco use: Never tobacco user Electronic Cigarette/Vaping 07/18/2022 Electronic Cigarette Use: Never 08/05/2022 Electronic Cigarette Use: Never . Problem list: Active Problems (10) Adult acne Bronchitis Costochondritis H/O: pneumonia IUD contraception Laryngitis Melasma Paronychia, finger Previous complicated by -induced hypertension in second trimester, antepartum Thumb tendonitis (more content not included)... [facility] ED Note - Physicianon 2022 ED Note - Physician Patient: MARTINA PACK Age: 37 years Sex: FEMALE : 1985 Associated Diagnoses: Enteritis; Vomiting Author: Hadley Caba DO Basic Information Time seen: Date & time 08/05/2022 22:05:00. History source: Patient. Arrival mode: Private vehicle, walking. History limitation: None. History of Present Illness The patient presents with This patient presents to the emergency room for evaluation of vomiting which started just a couple hours ago, not related to the cough for which she has been treated with antibiotics recently, she is not on antibiotics at this time, states she has vomited several times, no diarrhea, denies any fever, took no medications for it, does not have any abdominal pain, states her bowel habits are normal, urine has been normal, states she is not , denies sore throat, has been taking medications for a respiratory infection at first thought to be an upper respiratory then thought to be pneumonia, she still has been coughing, again, she states she is not currently taking any antibiotics, cough is nonproductive, and seems to be persistent. She denies any index cases for this illness, but we have in the emergency room here seen numerous cases of vomiting and diarrhea over the past week to 10 days. This is rather typical for this area of the country. Every year. She is , non-smoker, no alcohol use, and is employed outside the home. Chronic medical conditions: None, denies diabetes, denies COPD or chronic lung conditions, denies cardiac conditions. There has been no blood in her vomit. On exam, she is pleasant alert, she appears younger than her stated age, she has some coughing, her HEENT exam reveals a moist mouth, tympanic membrane canal and pinna are normal, symmetric face precise speech pupils equal round reactive 2.5 mm no nystagmus tympanic membrane canal and pinna normal, there is no anterior posterior supraclavicular nodes, her lungs are clear, she coughs quite a bit but there is no expiratory wheezing, there is no rales, there is no areas of dullness, heart rate and rhythm are regular, PMI left chest, she has good radial dorsalis pedis pulses, the abdomen is soft without any discomfort, she has no hepatosplenomegaly, skin is warm and dry, skin turgor is pretty good, she is not tenting, her neurologic exam is symmetric and appropriate, and her psychiatric evaluation is relative to the chief complaint.. Health Status Allergies: Allergic Reactions (Selected) Mild Phenergan- Shakes. Promethazine- Shakes.. Medications: (Selected) Prescriptions Prescribed ZyrTEC 10 mg oral tablet: 10 mg = 1 tab(s), PO, Daily, 10 tab(s), 0 Refill(s). Past Medical/ Family/ Social History Family history: . Social history: Social & Psychosocial Habits Alcohol 07/18/2022 Alcohol Use: Current Type: Beer Frequency: 1-2 times per month 08/05/2022 Alcohol Use: Current Frequency: 1-2 times per month Substance Abuse 07/18/2022 Substance use: Never 08/05/2022 Substance use: Never Tobacco 07/18/2022 Smoking tobacco use: Former tobacco user, Never tobacco user Number used per day: QUIT 16 YRS AGO 08/05/2022 Smoking tobacco use: Never tobacco user Electronic Cigarette/Vaping 07/18/2022 Electronic Cigarette Use: Never 08/05/2022 Electronic Cigarette Use: Never . Problem list: Active Problems (10) Adult acne Bronchitis Costochondritis H/O: pneumonia IUD contraception Laryngitis Melasma Paronychia, finger Previous complicated by -induced hypertension in second trimester, antepartum Thumb tendonitis . Medical Decision Making Orders Launch Orders Laboratory: Mycoplasma pneumoniae IgM (Order): Blood, Stat collect, 08/05/2022 22:09 EDT, Lab Collect D-Dimer (Order): Blood, Stat collect, 08/05/2022 22:09 EDT, Lab Collect Stool Culture (Order): Stool, 08/05/2022 22:08 EDT, Stat collect, Nurse collect Test Urine 1 (Order): Urine, Stat collect, 08/05/2022 22:07 EDT, Nurse collect Urinalysis with Culture, if indicated Standard (Order): Urine, Stat collect, 08/05/2022 22:07 EDT, Nurse collect Lipase Level (Order): Blood, Stat collect, 08/05/2022 22:06 EDT, Lab Collect CBC w/ Auto Diff (Order): Blood, Stat collect, 08/05/2022 22:06 EDT, Lab Collect CMP Standard (Order): Blood, Stat collect, 08/05/2022 22:06 EDT, Lab Collect Pharmacy: !-Zofran (Order): 8 mg, IV Push, Once benzonatate (Order): 200 mg, PO, Once Ativan injection (Order): 0.5 mg, IV Push, Once Sodium Chloride 0.9% intravenous solution 1000 mL (Order): 125 mL/hr, IV Radiology: XR Chest 2 Views (Order): 08/05/2022 22:06 EDT Stat, cough, Allow Modification Per Radiologist, Transport Mode: Wheelchair, Launch Orders Pharmacy: benzonatate 200 mg oral capsule (Prescribe): 200 mg = 1 cap(s), PO, TID, PRN: as needed for cough, 20 cap(s), 0 Refill(s) !-Zofran (Order): 8 mg, PO, Once. Reexamination/ Reevaluation Time: 08/05/2022 23:00:00 . Vital si (more content not included)... Normal [facility] ED Note-Nursingon 08-06-2022 ED Note-Nursing Patient arrives with c/o nausea and vomiting for the past 2 hrs. States she felt fine earlier in the day. Was seen and treated for strep throat and walking pneumonia a few weeks ago and has finished medication, states still has a cough. Afebrile. No urinary symptoms. States had 2 glasses of wine around 1400 today. Normal [facility] ED Patient Summaryon 023 ED Patient Summary [facility] - Emergency Department [address] [id number] PATIENT DISCHARGE INSTRUCTIONS Patient Information Name: MARTINA PACK Age: 37 Years Date of : 1985 Reason For Visit: Vomiting; Vomiting; NAUSEA Arrival Time: 08/05/2022 21:44:34 Primary Care Physician: Jose Larson MD Attending Physician: Hadley Caba DO Comment: Visit Diagnosis: Diagnoses This Visit Enteritis (K52.9) Vomiting ([id number]) Vomiting ([id number]) The Pharmacy at [facility] is open Sunday through Sunday from 9A to 6P and Sunday and Sunday from 9A to 5P Prescription Information: If you have been given a prescription for narcotics, seek immediate medical attention if you have any difficulty breathing or any sudden status changes such as confusion and sleepiness. If you or anyone you know is experiencing suicidal thoughts, mental health, alcohol and/or drug addiction problems; contact the [facility] 30/10 Crisis Hotline -Text 4HVCK fd 031797. If you received any narcotics, sedation, or any other medication that causes drowsiness for the next 24 hours, unless otherwise directed: ? Do not drive a car. ? Do not operate machinery such as power tools, lawn mowers, drills, sewing machines, or stoves ? Avoid alcoholic beverages and drugs for allergies, nerves, or sleep ? Do not make important personal or business decisions or sign any legal documents With: Address: When: Jose Neo Chester Swenson [facility], [address] [address] [place] [address] Business (1) Within 3 to 5 days Comments: Home Expect some diarrhea You may use Imodium for your diarrhea Your liquids tonight We have provided Zofran for you for home if needed Return if fever, or persistent vomiting. Call Dr. Lasron's office for a recheck appointment if not improved You are welcome to return here anytime. Shabbir CABA< ER PHYSICIAN< Nestor Lawrence [facility] Medication Information: The exam and treatment you received today in the [facility] Emergency Department were for an urgent problem and are not intended as complete care. It is important for you to follow up with a doctor, nurse practitioner, or physician?s administrative assistant receptionist for ongoing care. If your symptoms become worse or you do not improve as expected and you are unable to reach your usual health care provider, you should return to the Emergency Department, we are available 24 hours a day. For those patients who have received Radiology results, the interpretation of your X-ray as given to you by our Emergency Department physician is only a preliminary report. The Radiologist will review your films and if there is a change in the diagnosis you will be notified by phone. Please make sure you have provided a working phone number so we can reach you if necessary. In the event that you had a lab culture while you were a patient in the Emergency Department, you will be notified by phone if there is a need to change your antibiotic. Please make sure you have provided a working phone number so we can reach you if necessary. [facility] Emergency Department has provided you with a complete list of medications post discharge. Please inform your global upstream marketing manager/provider of your visit and for further instruction on these medications. Any specific questions regarding your chronic medications and dosages should be discussed with your primary care physician(s) and/or pharmacist. Medications to Continue That Have Not Changed Other Medications cetirizine (ZyrTEC 10 mg oral tablet) 1 tab(s) Oral every day. Refills: 0. Visit Information Allergies: Substance Reaction Symptoms Type Comments Phenergan Shakes Drug promethazine Shakes Drug Vital Signs: Vitals and Measurements this Visit (last charted value for your 08/05/2022 visit) Vital Signs This Visit Temperature Temporal: 36.3 DegC Peripheral Pulse Rate: 79 bpm Respiratory Rate: 18 br/min Systolic Blood Pressure: 117 mmHg Diastolic Blood Pressure: 74 mmHg SpO2: 100 % Oxygen Therapy: Room air Measurements This Visit Height/Length Dosin.560 cm Height/Length Estimated: 162.560 cm Weight Dosin.120 kg Weight Estimated: 72.120 kg Problems List: Problem Onset Comments Adult acne Bronchitis Costochondritis H/O: pneumonia IUD contraception Laryngitis Melasma Paronychia, finger Previous complicated by -induced hypertension in second trimester, antepartum 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 This condition may affect your stomach, your small intestine, and your large intestine. It can cause sudden watery poop (diarrhea), fever, and throwing up (vomiting) (more content not included)... Normal [facility] Extra Greyon 08-06-2022 Tube Collected Yes Invalid Interpretation Code [facility] Comment on above: Performed By: #### 2 753589, [id number], [id number], 6368263, 67894307, [id number], [id number] #### [facility] (DEFAULT) [address] [place] [address] 58103 Lipaseon 08-06-2022 Lipase Level 30.0 IU/L Normal 22.0-51.0 [facility] Comment on above: Performed By: #### 2 706743, [id number], [id number], 6368594, 50135263, [id number], 9257033 ####[facility] (DEFAULT)[address] [place] [address] 28548 Mycoplasma pneumoniae IgMon 08-06-2022 Internal Control Pass Normal [facility] Comment on above: Performed By: #### 2 114874, [id number], [id number], 8812998, 14512980, [id number], 9791396 ####[facility] (DEFAULT)[address] [place] [address] 74038 Mycoplasma IgM Negative Normal Negative [facility] Comment on above: Performed By: #### 2 057345, [id number], [id number], 8414470, 27410226, [id number], 7497728 ####[facility] (DEFAULT)[address] [place] [address] Test Urine 1on U Preg Negative [facility] Comment on above: Performed By: #### 3 [id number] ####[facility] (DEFAULT)[address] [place] [address] U Preg Internal Control Pass [facility] Comment on above: Performed By: #### 3 [id number] ####[facility] (DEFAULT)[address] [place] [address] UA w Culture if Ind Standard on 08-06-2022 Breakpoint UA [facility] Comment on above: Performed By: #### 1 [id number] ####[facility] (DEFAULT)[address] [place] [address] Color (U) Yellow [facility] Comment on above: Performed By: #### 1 [id number] ####[facility] (DEFAULT)[address] [place] [address] Culture? Not Indicated Invalid Interpretation Code [facility] Comment on above: Result Comment: Resu lt created by rule GL_MAGR_ADD_UA_CULT1 Result created by rule GL_MAGR_ADD_UA_CULT1 Performed By: #### 1 [id number] ####[facility] (DEFAULT)[address] [place] [address] Glucose (U) [Mass/Vol] Negative [facility] Comment on above: Performed By: #### 1 [id number] ####[facility] (DEFAULT)[address] [place] [address] Ketones Ql (U) TRACE [facility] Comment on above: Performed By: #### 1 [id number] ####[facility] (DEFAULT)[address] [place] [address] Micro? Not Indicated Normal [facility] Comment on above: Result Comment: Resu lt created by rule GL_MAGR_ADD_UA_MICRO Performed By: #### 1 [id number] ####[facility] (DEFAULT)[address] [place] [address] UA Bilirubin Negative Normal [facility] Comment on above: Performed By: #### 1 [id number] ####[facility] (DEFAULT)[address] [place] [address] UA Blood Negative Normal NEGATIVE [facility] Comment on above: Performed By: #### 1 [id number] ####[facility] (DEFAULT)[address] [place] [address] UA Clarity CLEAR Normal CLEAR [facility] Comment on above: Performed By: #### 1 [id number] ####[facility] (DEFAULT)[address] [place] [address] UA Leuk Est Negative Normal NEGATIVE [facility] Comment on above: Performed By: #### 1 [id number] ####[facility] (DEFAULT)[address] [place] [address] UA Nitrite Negative Normal NEGATIVE [facility] Comment on above: Performed By: #### 1 [id number] ####[facility] (DEFAULT)[address] [place] [address] UA pH 5.5 Normal 5-8 [facility] Comment on above: Performed By: #### 1 [id number] ####[facility] (DEFAULT)[address] [place] [address] UA Protein Negative Normal NEGATIVE [facility] Comment on above: Performed By: #### 1 [id number] ####[facility] (DEFAULT)[address] [place] [address] UA Spec Grav >=1.030 Normal 1.001-1.035 [facility] Comment on above: Performed By: #### 1 [id number] ####[facility] (DEFAULT)[address] [place] [address] UA Urobilinogen 0.2 mg/dL Normal 0.2-1.0 [facility] Comment on above: Performed By: #### 1 [id number] ####[facility] (DEFAULT)[address] [place] [address] Urine Source Clean Catch [facility] Comment on above: Performed By: #### 1 [id number] ####[facility] (DEFAULT)[address] [place] [address] XR Chest 2 Viewson 3 XR Chest 2 Views EXAM: XR CHEST 2 VIEWS HISTORY: cough COMPARISON: Two-view chest from 10/22/2019. TECHNIQUE: PA and lateral chest were done. FINDINGS: Trachea, mediastinum and heart size are unremarkable. The lungs are clear and well aerated. No infiltrate or nodule or effusion or pneumothorax is noted. The diaphragm and bony elements are intact. IMPRESSION: Nonacute two-view chest. Final Dictated by: Agustin Mayer Dictated DT/TM: 08/05/22 11:26 Signed (Electronic Signature): Agustin Mayer 08/05/22 11:27 p Technologist: ELÍAS [facility] Coding Summaryon 08-01-2022 Coding Summary HTMLBase 64 NkxjsxcgDXg4mAq+PGhlY WQ+TV6XQHXmR02ygTPohV 2VU3fGXE4GNPIMGPJGRB3 URW9yfIP3XRdlE3AhmnDp YimuzFFhXE94XKg5KIZ3n NsdITbntA4ddIKaB8p5Pg NxJS38xP81YYzpPHDsIuN 3LjZpbjsgbWFy M3vwLsKkvFFuWcy+PHRhY mxlIHdpZHRoPScxMDAlJy JikBknOR4vSk5fZNSrDPD vbGxhcHNlOiBj x9haUHIoDGcxQG7dcCzzM 3WfyIK7FDRbi1k8Be62lC I+YPAvVJW0rIkaFOdpm92 6BvXtb2euIYF6 jEZpBItsXWK1U96st5J5I IAmZVHfHZF7bSS9aN3gnI rjzjhwK5AenEQfBbC7VHT 1kSEimC6gzTph fneexM8sBrm+F27ICP6SD AGFUN3JAaz0S4LgFvgpbI I+ZI51VAAtHP53hOCnvMW td1cfdZk2HdCv YYZaAMZ0qBywCCzkj6HbI ZArU80pqNIlh8W9PJCvuA eddAMsLzCztQX6cO4wRTl gmtnbt0jetero Cwjdo7hqnb69qH15T89vI JizLMRbYQO7ZFPzDSLzyF sgkg7bjU0cPl1+CPvxc4t hc1cljTv1YcMm OKCvjxFzbRclBJJ2o4MqN a95P7QkeBwud9LtBne1xn 39kPYdc1Y1kFO8JKnhYMH jeC4hTRdwPdQ2 SUXdJdPdbD39hBSvBJlvU n5zyBnptCjiEM6qZRFizb ctCHYxqS5fPEMaqEKwaSa dHM0sKYMesprm e764AdZwQBH4BWDfhRKaK 9VggP7yQuEjMQHjHPDsV7 QtdLAzJQuiJ937HAioPoO 7TWXusfYxI0Oa NIUfxLvqHtB7v4N6At3Yr 0DcrvahYIJ6PAaeGKM1Vo J5SnJaQrM6K5KcLfn3DQF vuMkiVW5bX3Ey EVGaojoxmmuzoYL7PHEpF NGkeY05iJQnTSwmJb5ii6 P6n458UJIuOALikG67Lo2 udDogMTBwdCBU oE9mwusou6jpbuwfEoKyE ATiNBz5CCx4SNJdqDxaEv YhIYJ2UrS6RAU5uZGtgK5 lqAzrngjihV7x Oyc+U95uiX3tJYI2NDH0t isrTBHlszKsPO28IB44I1 RyPjwvdGFibGU+PGRpdiB noRboKS7qRqQq h0jex4FaKCtxG7UjROGpK AtnTyk7IQVwPAA4zOX7xV 8wTBNiGPxuv0L8zXN7M5V bcbYyfa3ny6qp KYKsATpaX17tpQNrf4M7K NWucRL4QBRsaCpoRoIbbG 93Oyc+FYQigRnnz3EcIub le1uol2faiLf7 RnTdWGMejuKzvLfdHTG9y 6OmAv20H69bQHewABTkEN VkLPFgLHVmaIxgno0hbB6 wIi8+PGNvbCB3 pZW2uO8aJCCdPjU1IOsgO 259UtUqkLTtLrycp5cml3 dtlTq2BqHzPAOtuuCnsCh nPVR0f2CrKd69 J12fGLzhSNIyPSUcNOLwK QXegGqkhk0qwB6dSt3+PC 0dn2xgzx88nS42cKB+PHR yAEA4vXihGNpv JLWngU2cWWxuUbF9QQZkP cHboL22eTZaDQefTb2jyG ixgUesGV6yTEKhqyaia28 1UtVew4moXTZq vHZxZEtsOUC2F34tg2Y0W FJzRLHdRRM2pFF0oE3tyG lnbjogbGVmdDsgdmVydGl fUWuwBQneV919 IHRvcDsnPlBhdGllbnQgT jWwRSl0J2QkQdl7IBYprA ywKH5riBRtXFmbJl0npJf kkImmNM0rCTUv tnjqu175KfPwy3ebRENcl PYnSNkxQIG4M68jk2T7MR AwVEVhLXU1oMP9zS2ydWh nbjogbGVmdDsg jxUblTpcAJnkQRqmI901W HRvcDsnPkJpcnRoIERhdG D2CY72TN13sRMtp3X6jFS 3N6SwBXLlnjua uotnkJX6ULCoQXRzlR58A f7koVegWs7uUOYvSHC8LO CrtMZcD5UjdL5eBeMcTDJ kEAHzF6EfsOMu JDqmV748BNbkZgW5NSVpz mWfB5TtSGYczMjmItT6p6 M8Ed2BN6Z4RV02ST35gLF rc9Z6gVH3M5Os LITkpqhfybsjzXY9VIQsN IBisE56Vv5viIfdSk0uIK QwSGY2QJYgePQsG8HegN3 yOiAjMDAwMDAw H8SqkPCvVUlvZ037NFjqB nM4VZHlliYrO5RzRKTegW hqCuF5q6U2Fy7THFv6WO8 5WF24lSUgo2G9 mXL2O8OtUSQzkocozuiga ON3KVLkRLWpmD38Tk7qyR rlNv3nXMTdTDG6WLTlfEX aV3SqxZ5zGcHj MPAtSREhN3JljERzVHazR 213YXxtUaI7YMItvoFmR1 YtDGZroDeqXgZ4a7O5Ac5 PZXBlSN01ZMO0 nEX2AL99VY06R9LeIuuou GFibGU+PHRhYmxlIHdpZH RoPScxMDAlJyBzdHlsZT0 fTb9iTGJiZEJv eSruvVZwHvTzv0dcBWMmX GyaVD5rnHhsC4HaiHX4QA Wns4n6Oh87Y96zE6WmnPF +KBGzfQJ3fVW0 kE8hLsJfDoX4WBygT065P zCqdDLfCjamq4qnf4uoyI n0MkY7CFVsxaNnyLrqVYG 6t3IaHf15V04s IHdpZHRoPSIxNSUiIHZhb Miypk7heB8dKf9+PGNvbC N6wTV6hT2qSlZqDsE2IKc tI399BdCrlYLo Vbzrt5tfh0inpVc7TdFdS SVveuTpwZulCWO7l9EbBt 58F3VakJqqt8PwPru8au4 8gUSzv4Y5aTV4 B8SeUVNovoocjIGdyKroI G9cNAAkmgsxPUMfhK0mMB ScA0d0YuWpQaX9TJbtG2J ojgV6KEOypNCk YZblDGK8H84kn5J2DWSmH KUwUYE5eWX3hQ1ykYrigt ogbGVmdDsgdmVydGljYWw nCNyrO398HMHl kYxuNJTonG8mIJDveRUhz DibGN2oDITueqvvGzMNZB 9JTTVjKD6EV14XDXSNLZ3 FRTwvdGQ+PHRk NXQ8bFijJZlmVURpfF5cP XWqY7d0LuVuEqR4VFemB3 ExZIXxeesiDz73cQ1mUkS gYbY3WTswM4Uy sgU0VDIadTLeWZtrOWX2N 80og5U4EDRyUTKcVMV7zG F9mA6hdCvmfeefqAKwtRn gdmVydGljYWwt RQknN341MVLgrUwbIkIcA aH4UiZ1FBS3W2IpScp2HG BieZizWM1yfTJrEIyrSw6 tgJarhEugQQ0f MCQiewnhTUKcuP3wYAPbn ZLodVhzGE7lWKYamxpok3 58BfRaOXW3OVQqgQLaT8G szE5fNwKnDYKo TIOtC4ZadQWuCDtmB691M FzyGgI9UELottTqP7AfJK HudDpvCtV7p0U3Hk1tRXU ZZWFyczwvdGQ+ OEQrMNA2mXsmDFsqBTDkr W2sLTRyX3h9TaLoOmH3EW vsP4ZxEYJlntquAx81rC9 yIzDwIsW8VYyq B9IrhbZ9LVImuGUdKNjoM CK3R98ot8H6MRVgFLHyLU U1lDX4kT5qvEsyrogmaFR mdDsgdmVydGlj LLgaGWjzS830AMJxnSasY kZFTUFMRTwvdGQ+PHRkIH X2yLvqKFgsGSKnmF1dKIZ kU7g7TtQdCyH7 RFefY9EzGCSenoluHk16r R1mBjKjXhY3SHuzJ9Snbo X6WJAqyZQiSOrpKQZ0L05 ya0X0FELdNEBz XUK6xHE2fC9fwGckdryqu GVmdDsgdmVydGljYWwtYW qdS639ITKzkZcoPh8FLD1 9CQ18X6OcTzaj dGFibGU+PHRhYmxlIHdpZ HRoPScxMDAlJyBzdHlsZT 5jSd6qPVPtWAOgjRsdlNX kPlJva1kjHSSk AKacJN9ywRtvG1HcaAD6R EKgv8z4Ea50X16uF1GtrC A+FYYmgLG7fER1hP3wYgQ dVeA2DBakY276 RdCkoHAsKnnle2fqj2vci Ht6VhXpITIefkMgcEzwWY C1q0QlUr96P22jATerTYH oPSIyMCUiIHZh nWhytu6xjV3cRo2+PGNvb TU7rMO8yE0sRqAmSlE4EF suM951VmZuyMJbIrndD25 cG9CicKZ+PHRy Lvg5IWQazCmgEC0yeQUrO JklHt5hQFC6XtDtJaVoCJ lcE7MeIOTmhmlwcyotmFR 4EAWcJWMdbQ18 Km9chUlnGp6aWUNhTVY4S CUtzSUvJ3EjkU0lHgKfWN TdMDEpK0BizTPtSUklC23 6SZmjZtR5ZXBl gnFwD5DlINItlAxwYsZ8u 9S7Ah9FzLzxfAHuNC9lAh KfCEa8A2DgWhg3OJJaaNv qBT5woTUyJGhy Xn3wbNthqNccYP7vQVDxj prmv692HjKqx7meOYFgtI LxAZljEYA7K81jf9Z6SWF lHWQiXJH1pZA9 tO0bqEqnkhlodBMhjXosk tLvdUdwHYmaUQrbX494GZ FrqRzzPnCANpb9H5NkPyk 6UIDvnSvpRW4a iZXwZLmdBy0utUukaMmwQ U4bJQRjzftph876CeRix9 ruPVHbwZRqUGsmIUT8N47 iy9R7NNDoZCTw ENN6hTD7aG1ffCncmpqkh GVmdDsgdmVydGljYWwtYW jfB849KELyoOfkRw3OIsn 5L6IhSxj0MDBp tGbsOB0jaXWxDCbzKo7qz MqrdWjeXR9dQUIsetjsi0 79MyDwd0xdFOFuxOAoTLz fRNT8O44cd4P3 FSGhJJXzDOX3sIK1gI5jo GlnbjogbGVmdDsgdmVydG jsQPdtGYfpS214ORDwkMm nPlBheWVyOjwv dGQ+FO41mq08R0UwAjkpD sy2CJXuVQM6yAZ4wD8eLX BlDTjpm6J6wPJ2A7XnpdN hlb4ma2iuMJBt ZTo (more content not included)... [facility] Coding Summaryon 07-31-2022 Coding Summary HTMLBase 64 VlkqfvfoIKm0xVj+PGhlY WQ+CZ1PXQEbL60vsKYshX 7ZG6lJSK1ZPIYRIRHHGM4 ZAZ4jwCD1SAzvM1YluwVa PwrnjCAqZC66VRt6QCU5h ThyLPzzgL7psLFuR1k5Kh FlYC16sH50DRhqUZGnMiF 3LjZpbjsgbWFy W7wjJzIcrGJhSku+PHRhY mxlIHdpZHRoPScxMDAlJy ZqgVotBO2iFy0wYKTbYDB vbGxhcHNlOiBj h8crTTTtHKeqPN3qkCmnG 4OczTW9UFLqb1v4Rn14vM I+WSVzRDQ5nDkbQEnht72 4WbPjg9cdBHY6 sFCyYImcVOP2X78jp8P6M JEtAUBiFGB5iOB3lK6tnE fghyblE8JmhJOhCgX7CVM 2wKGdgE1vgDei xluayI5gFbw+L15DCC0WS YUPTX3QDoq6E7JdHjfaaI I+IF10DFSgKA72xAJpcDR ev2sqrDq3YzPv TTKsZQP9tDbpKVqky9FmP UYlX02akWDzn5G8VSYxaX hkpZJrBmHhoON7zZ3wSKi efucmi7esaune Wjpfr8puss97xJ72U46vI JlaSHWiBRQ6ZJWaJHXnrL elwf6ovW6uGa1+OKepb9b qh6qeeWs5AtBm HGNetjZclEgkKFQ5t6CtO r26E3ObtDxhl6DgYos1vh 19yUAug4I8bVU4WGhrZCP yhW5pPHeyMmE2 FFUzDxNibM49aODiTZdhY j0ltKbtuKcvBG8gSIJetc ouTHBpeX6kPFOplSMhwIp bZW7fJHHteuyd m887QhVfAAE1XLBsnSVwZ 9EjuT8vDiMbEAAsIKXoX5 FtmQOhZLqfL101LMgtOoX 8BKUawdPxV0Ms DRArjArlQlN5c8B8Ag4Et 3RbleivFNG6RUtzMVT6Pu V4DuBcRfG2C4SrGyo4CEH hfCwqFJ2sW8Qe LHYnkckxmgjfvTN1UFFhS FKmmT79gDPjVEjkEq9zu7 R0e784CWJfHBQzjF18Nf5 udDogMTBwdCBU hC3nyxxep2bwmhvnAoNwO OMnJSa8JKy8UUHvjYudTr CfNMM5KlG9EPK3yHOfkM5 nhBhusosmdK2s Oyc+W72imX2iKPB5QLU4q eqeSENpzrOaTV40MV37K2 RyPjwvdGFibGU+PGRpdiB qbMygCA5jEhNf o6cpp8WxYCicR6QaVQZeL PhzOpv3NUTnUUK0wZE8cQ 4xZIItPSgev3B8fWN3H9L wteUzlm2zd1pi SXSpZYxqZ03pbIJob3L1P ATkxAG1CJHtrZakAkMelH 93Oyc+XDNmpQyvt3PbVjc sa0lew5cqsTk9 QwIkSANhjdCysCkaDYK5n 0WzHh23E08uIQiyXTJcLD WsHCUbRVYluPwitw8jvP9 wIi8+PGNvbCB3 gAA6eK1bUWDtCcC2FLouP 374IuThvYOzGnwkq4bfc8 ydbBn1MdDeVAFnqnOakRf uFCM2u4XpQa40 H31hFAcbMAGoTCZaHEEhQ VZtrGfvvp8zeQ1tIf1+PC 8en3yrdf03sY28pYH+PHR uAXV5nOevFWpi WLLrhF5dEBroOyL6SICoA vSwkS06nGOkRJqaFo5buU lxcQfgGY8oRVYfitjff58 8IjJqj9kyTUKj zPNwYFtsWMD2H52dj4K6C CAjISWdZYQ8mFB0kL1ogP lnbjogbGVmdDsgdmVydGl aJRprEIpkY415 IHRvcDsnPlBhdGllbnQgT wTnPAw8D8AqOng1TSKvnX skBP2emNSkRSdrMj9qeFb uwUxpYJ1sXMTg xscgz095QuSqf6wxNPYcf OSuFUceGBN2N79yd4M2PI GwRKTiVRS7jBX5zV7biCk nbjogbGVmdDsg wwAedGhbDLatCPawC222W HRvcDsnPkJpcnRoIERhdG W3AM12KX55uPPzi6B0zAX 6M7QiFNXnusbq hxkldXB1DMMvEFAdtZ69F h4ghRetRd8hQPOePHJ9MT JogPHiX2HthJ2nCaHzOBT jVPJwD3CbkKRe LKxaG454QUgxMqF3QXMtk wBsL1ZpBRZcyUvdBqL6w9 Q9Ic7LW5S1EV60EO83zNH mq8N3qNJ2T3Xs CBGtxrzwkrlcqJK1XYOgO CPtvW07Gt5cySsyZc1sLC JwWKF1YTCpuSCzN5ZccR3 yOiAjMDAwMDAw V6SrhGBaMNjvF740BIpcH bR8QLAgomSeD1OaHTKwoD ipTgS5a4F5Fe1IMIr5OA5 3EK38oDOeh8G0 tOI6O9GzFKSljsfqdnnpo BH1PYXsGCMajI99Cy3mnT dfLc0vLBWiZYZ2IVDecBE qN2BmxU6qZnSe LIBhCOLbB0TbvEFdIQlgZ 104OEsyJkM9YNNzlvOjU2 XgEKGurUkrSoW3e6U7Sb6 IFTFfXF56CMI1 zRD0XO80JD44I7NrKdrbv GFibGU+PHRhYmxlIHdpZH RoPScxMDAlJyBzdHlsZT0 tXu9lOGArKTIj lIhwlFTvDfJmc3olDMIiU IgcGM6awRjmB2GqaMD8RJ Qov9o1Cb11V37cT6DebOM +XNNqfPO5kFH9 nG6kVbCyYsB4VIstY027M jNrpSThYsmem1gbg1ccfH x4SgQ4RCXcagIgbTinYRQ 3x3QnVy95C60d IHdpZHRoPSIxNSUiIHZhb Dbmzj8xsT9bKr4+PGNvbC U6mTT2lF6aTrXhSoN0GZb dS960GgGtrXFk Gcvqv2lvy7pfzAx1DaNfZ ZCgrjLzmBfzFAG9k1GgGi 94E2KcdYxpl8LzQai0ju9 9iDDhq9X3pJM6 P2EtFLLokhrolYGryOwlI P1sPAMujdetBAXmfT7bOH JkE4a3CxDeLhA4CVcrM5P sriZ0QYIfdXKh KUlrKNX2A88wa0K0GJFfH MRdFKC7jJT9tZ1dsMrppj ogbGVmdDsgdmVydGljYWw uOUtqK518APXk pCfpBTNpbN3kCDNbiJIgl BclFZ2mPDRgxhgbXcVJXN 7WBIBoXC6NJ59LCBTIMF7 FRTwvdGQ+PHRk OTL5lHpjEUkvHEWfpL9iB BKwD2r6NxHgCnJ2ANutI2 SbFTKjtkjiDu98zP1fMgJ gJvH5IRahQ4Pi uvN3YTWwpFXdURyoHUC8R 26ca1H8FNZvVONsFHV4qO R9rH5vlGojvssaaRGxmZn gdmVydGljYWwt HKsmS953DAMwzKmxAbDfW iJ6VxY0OFJ2W1SkJhl3LY DkqTscVX3mjBScPGufXi6 wlBkofKxhRL8x DWDznhgmPUWcrS7dVIJvz ZWuzZipUX9zCHJbirahi5 21HfBuAZU8VJQueSYcR1U lgY0qPqAdRILe FFWuN2NcnEXpTDdhW980B OrhCtH5BZHgeoPdP6AeGD GkfMxjQwL8c6N6Ti6nYTO ZZWFyczwvdGQ+ XDVxWMV1bSkcWYvvKQWua B6uACUcZ8f5FxIpPiB2SG zvO9LuNRKrpzguZo72bV0 jIjUzJiD4CMhe E5YchpX0ETWqfHVjBAppI OX6D29un8Y3TMEpGDSyQF R1qKJ7lA9tqEbpuxyeaGW mdDsgdmVydGlj SLqwZJfgW080IELpbDgxG kZFTUFMRTwvdGQ+PHRkIH L8sPniGZkeBSFpmN2dUMY iX9r7RdPoPxQ7 LXvsS3KiWOBukwakKu86m O5cRqLgRmG5LRsjZ0Vxyc C5FCXthCCxHUeyUXI3K62 rf3T4YXVaYBVi JXS0pAG6lB0cvUlrtwsoi GVmdDsgdmVydGljYWwtYW ovF575HINlrApwUt5CHT8 8ZR97E2DuDcdz dGFibGU+PHRhYmxlIHdpZ HRoPScxMDAlJyBzdHlsZT 8cCj1hUQWqLEJjlYprxSV gSeErn9luSLAz LRrhDR1lnUipJ2VjiHW1M PClt1f3Oe78J61nL1TogE A+VFOluEA0hEQ5aQ7oMvW sUkR3ZMwbO185 PpIqpMLsIpmwl3zvj4pif Ef4CbCfMWZiecMhxRxfUJ I9g1KvOo09Q28nBPzqMOH oPSIyMCUiIHZh eXhuyw0jnL6yUm7+PGNvb PY1dAR8mI9ySiKeExQ8JE ykM927KrLxwKTxMqcvV98 lV4LejYG+PHRy Qga3RXFyrAqjWC3ywQJgX AfuYs0uRGH0CoXwAnEpEX tzH9MqGDXqdnxvsfzdaBC 9DGHnAWEucL56 Lp4vmXlwRm5fIZJiDDO7R JWhcVFfM7KnxP7dDxBkUX KtLGOtC8TjqYKyXGfqI04 9RTanVaX8TKUf qfSbY0AsMRUlwEppItJ0j 4S9Ds9VaHvkxQNqII9vGo EzRDq2T3KvUel2IUYzgIh eRE8gpMWwBVch Tc6onGfhkJqaRF6mWOHld vvcb607GxAzs9vyZBTjxI XhQVxeLYE1J04rn8G8QZO nJUBjVTV3dJY9 hH7irDplkakgrAGmwLbaq cHucJgvZYarTBieX445SD MdsEyqQpLJLeq5T3HeXjp 3IDDquYuxTQ1s hDXlOAwiFc5nzMuzsUqwQ R8bJXWnkqmkl575EgQfu3 cmEAFfbLBpKBjhZMW5I38 bg1J7NAGkBTGr BFB9gFX4hZ0lcYishrmdq GVmdDsgdmVydGljYWwtYW lxF982PIVqyXbyUy1FYjq 3C5FrAmr3QOCt rAjrSC0yrFAoFHouCf0kl WwuzRxwUI5vYJNncssnc6 70ItEun1qhCHHzdLNyFLi iOFS9K45qv0Y6 TJViPHPqSJI9eEJ1hK8mk GlnbjogbGVmdDsgdmVydG lkHQlgKDjtZ270LEWebGa nPlBheWVyOjwv dGQ+JB15fs72V3YtYxabB lz5YCLxZWC0wTV8xT3gTV LfVPbnk9P7jJZ7X7EcqmG mrj4bb6dcTPJj ZTo (more content not included)... Normal [facility] ED Clinical Summaryon 2022 ED Clinical Summary [facility] ? Urgent Care [address] [place] [address] Clinical Summary PERSON INFORMATION Name: MARTINA PACK Age: 37 Years Sex: FEMALE : 1985 MRN: Acct#: Visit Reason: Cough; COUGH, SOB Arrival: 07/18/2022 17:09:49 Discharge: 07/18/2022 18:00:00 LOS: 000 00:51 Check In: 07/18/2022 17:09:49 Checkout: 07/18/2022 18:00:00 Address: [address] [facility] [address] PCP: Jose Larson MD PROVIDER INFORMATION Provider Role Assigned Unassigned LASHONDA HAILE ED PA 07/18/2022 17:12:55 07/18/2022 17:14:01 Hadley Sanderson ED PA 07/18/2022 17:19:32 Mindy Bailey RN ED Nurse 07/18/2022 17:24:55 VITALS INFORMATION Vital Sign Triage Latest Temperature Tympanic Temperature Temporal Artery Pulse Rate O2 Sat 99 % 99 % Respiratory Rate Blood Pressure /70 mmHg /70 mmHg MEDICAL INFORMATION Medications Given: Allergy Information: Phenergan; promethazine PHYSICIAN DOCUMENTATION DISCHARGE INFORMATION: Discharge Disposition: Home Discharge Location: Home PATIENT EDUCATION INFORMATION Instructions: Upper Respiratory Infection, Adult; Cough, Adult Follow-Up: With: Address: When: Jose Larson MD [address] [address] Comments: Diagnosis is upper respiratory tract infection. From history you have had cough and cold type symptoms, without fever and chills. You have been sick for about 3 days. You are currently on antibiotics finish the course. We will provide you medication in the form of Bromfed-DM, which helps with nasal congestion and cough symptoms, also provided with a prescription for Tessalon Perles which help treat cough. As discussed these illnesses take time to resolve, its been 3 days, these can take sometimes up to 2 weeks, certain illnesses such as bronchitis can have a cough that last with a average of 19 days keep hydrated. For any fevers take alternating doses of Tylenol and ibuprofen this will help with relieving severity of any body aches. Follow-up with primary care provider in 3-5 days for reevaluation. Return to the emergency department/ Urgent care for worsening symptoms or concerns, intractable nausea or vomiting, spiking high fevers, acute shortness of breath or chest pain, any questions DIAGNOSIS: 1:Upper respiratory tract infection Patient Understands: Yes - Patient/family/caregi beto verbalizes understanding of instructions given Comment: Normal [facility] ED Patient Summaryon 023 ED Patient Summary [facility] ? Urgent Care [address] [place] [address] PATIENT DISCHARGE INSTRUCTIONS Patient Information Name: MARTINA PACK Age: 37 Years Date of : 1985 Reason For Visit: Cough; COUGH, SOB Arrival Time: 07/18/2022 17:09:49 Primary Care Physician: Jose Larson MD Attending Physician: Hadley Sanderson Comment: Patient Education With: Address: When: Jose Larson MD [facility] [address] [facility] [address] [place] [address] Comments: Diagnosis is upper respiratory tract infection. From history you have had cough and cold type symptoms, without fever and chills. You have been sick for about 3 days. You are currently on antibiotics finish the course. We will provide you medication in the form of Bromfed-DM, which helps with nasal congestion and cough symptoms, also provided with a prescription for Tessalon Perles which help treat cough. As discussed these illnesses take time to resolve, its been 3 days, these can take sometimes up to 2 weeks, certain illnesses such as bronchitis can have a cough that last with a average of 19 days keep hydrated. For any fevers take alternating doses of Tylenol and ibuprofen this will help with relieving severity of any body aches. Follow-up with primary care provider in 3-5 days for reevaluation. Return to the emergency department/ Urgent care for worsening symptoms or concerns, intractable nausea or vomiting, spiking high fevers, acute shortness of breath or chest pain, any questions Upper Respiratory Infection, Adult An upper respiratory infection (URI) is a common viral infection of the nose, throat, and upper air passages that lead to the lungs. The most common type of URI is the common cold. URIs usually get better on their own, without medical treatment. What are the causes? A URI is caused by a virus. You may catch a virus by: ? Breathing in droplets from an infected person's cough or sneeze. ? Touching something that has been exposed to the virus (contaminated) and then touching your mouth, nose, or eyes. What increases the risk? You are more likely to get a URI if: ? You are very young or very old. ? It is patric or winter. ? You have close contact with others, such as at a daycare, school, or health care facility. ? You smoke. ? You have long-term (chronic) heart or lung disease. ? You have a weakened disease-fighting (immune) system. ? You have nasal allergies or asthma. ? You are experiencing a lot of stress. ? You work in an area that has poor air circulation. ? You have poor nutrition. What are the signs or symptoms? A URI usually involves some of the following symptoms: ? Runny or stuffy (congested) nose. ? Sneezing. ? Cough. ? Sore throat. ? Headache. ? Fatigue. ? Fever. ? Loss of appetite. ? Pain in your forehead, behind your eyes, and over your cheekbones (sinus pain). ? Muscle aches. ? Redness or irritation of the eyes. ? Pressure in the ears or face. How is this diagnosed? This condition may be diagnosed based on your medical history and symptoms, and a physical exam. Your health care provider may use a cotton swab to take a mucus sample from your nose (nasal swab). This sample can be tested to determine what virus is causing the illness. How is this treated? URIs usually get better on their own within 7?10 days. You can take steps at home to relieve your symptoms. Medicines cannot cure URIs, but your health care provider may recommend certain medicines to help relieve symptoms, such as: ? Lces-smn-hbhcokh cold medicines. ? Cough suppressants. Coughing is a type of defense against infection that helps to clear the respiratory system, so take these medicines only as recommended by your health care provider. ? Fever-reducing medicines. Follow these instructions at home: Activity ? Rest as needed. ? If you have a fever, stay home from work or school until your fever is gone or until your health care provider says you are no longer contagious. Your health care provider may have you wear a face mask to prevent your infection from spreading. Relieving symptoms ? Gargle with a salt-water mixture 3?4 times a day or as needed. To make a salt-water mixture, completely dissolve ??1 tsp of salt in 1 cup of warm water. ? Use a cool-mist humidifier to add moisture to the air. This can help you breathe more easily. Eating and drinking ? Drink enough fluid to keep your urine pale yellow. ? Eat soups and other clear broths. General instructions ? Take jmfa-chx-leluofe and prescription medicines only as told by your health care provider. These include cold medicines, fever reducers, and cough suppressants. ? Do not use any products that contain nicotine or tobacco, such as cigarettes and e-cigarettes. If you need help quitting, (more content not included)... Normal [facility] 023 Urgent Care Record [facility] ? Urgent Care [address] [place] [address] PATIENT DISCHARGE INSTRUCTIONS Patient Information Name: MARTINA PACK Age: 37 Years Date of : 1985 Reason For Visit: Cough; COUGH, SOB Arrival Time: 07/18/2022 17:09:49 Primary Care Physician: Jose Larson MD Attending Physician: Hadley Sanderson Comment: Visit Diagnosis: Diagnoses This Visit Cough ([id number]) Upper respiratory tract infection (J06.9) If you received any narcotics, sedation, or any other medication that causes drowsiness for the next 24 hours, unless otherwise directed: ? Do not drive a car. ? Do not operate machinery such as power tools, lawn mowers, drills, sewing machines, or stoves ? Avoid alcoholic beverages and drugs for allergies, nerves, or sleep ? Do not make important personal or business decisions or sign any legal documents With: Address: When: Jose Larson MD [facility] [address] [id number] Comments: Diagnosis is upper respiratory tract infection. From history you have had cough and cold type symptoms, without fever and chills. You have been sick for about 3 days. You are currently on antibiotics finish the course. We will provide you medication in the form of Bromfed-DM, which helps with nasal congestion and cough symptoms, also provided with a prescription for Tessalon Perles which help treat cough. As discussed these illnesses take time to resolve, its been 3 days, these can take sometimes up to 2 weeks, certain illnesses such as bronchitis can have a cough that last with a average of 19 days keep hydrated. For any fevers take alternating doses of Tylenol and ibuprofen this will help with relieving severity of any body aches. Follow-up with primary care provider in 3-5 days for reevaluation. Return to the emergency department/ Urgent care for worsening symptoms or concerns, intractable nausea or vomiting, spiking high fevers, acute shortness of breath or chest pain, any questions Medication Information: The exam and treatment you received today in the [facility] were for an urgent problem and are not intended as complete care. It is important for you to follow up with a doctor, nurse practitioner, or physician?s administrative assistant receptionist for ongoing care. If your symptoms become worse or you do not improve as expected and you are unable to reach your usual health care provider, you should return to the Emergency Department, we are available 24 hours a day. For those patients who have received Radiology results, the interpretation of your X-ray as given to you by our Urgent Care physician is only a preliminary report. The Radiologist will review your films and if there is a change in the diagnosis you will be notified by phone. Please make sure you have provided a working phone number so we can reach you if necessary. In the event that you had a lab culture while you were a patient in the Urgent Care, you will be notified by phone if there is a need to change your antibiotic. Please make sure you have provided a working phone number so we can reach you if necessary. [facility] has provided you with a complete list of medications post discharge. Please inform your global upstream marketing manager/provider of your visit and for further instruction on these medications. Any specific questions regarding your chronic medications and dosages should be discussed with your primary care physician(s) and/or pharmacist. New Medications [facility], [address], [place] [id number], [phone] benzonatate (Tessalon Perles 100 mg oral capsule) 2 cap(s) Oral 3 times a day for 5 Days. Refills: 0. brompheniramine/dextr omethorph/phenylephri ne (brompheniramine/dext romethorph/phenylephr ine 4 mg-20 mg-10 mg/5 mL oral liquid) 10 Milliliter Oral Every 6 hours as needed for cough and congestion for 5 Days. Refills: 0. Additional medications on your home medication list not specifically addressed. Please contact the ordering physician if you have questions about these medications. amoxicillin (amoxicillin 500 mg oral capsule) 2 cap(s) Oral every day for 10 Days. Refills: 0. cetirizine (ZyrTEC 10 mg oral tablet) 1 tab(s) Oral every day. Refills: 0. Visit Information Allergies: Substance Reaction Symptoms Type Comments Phenergan Shakes Drug promethazine Shakes Drug Vital Signs: Vitals and Measurements this Visit (last charted value for your 07/18/2022 visit) Vital Signs This Visit Temperature Tympanic: 36.9 DegC Peripheral Pulse Rate: 74 bpm Respiratory Rate: 16 br/min Systolic Blood Pressure: 120 mmHg Diastolic Blood Pressure: 70 mmHg SpO2: 99 % Oxygen Therapy: Room air Blood Pressure Method: Manual Measurements This Visit Height/Length Measured: 162.56 cm Weight Measured: 72.12 kg Body Mass Index: 27.29 kg/m2 BSA Measured: 1.8 m2 Problems List (more content not included)... Normal [facility] ED Clinical Summaryon 2022 ED Clinical Summary [facility] ? Urgent Care [address] [place] [address] Clinical Summary PERSON INFORMATION Name: MARTINA PACK Age: 37 Years Sex: FEMALE : 1985 MRN: Acct#: Visit Reason: UC - Ear Pain; UC - Sore Throat; UC - Headache; SORE THROAT, LT EAR PAIN, HEADACHE Arrival: 07/15/2022 12:02:53 Discharge: 07/15/2022 12:38:00 LOS: 000 00:36 Check In: 07/15/2022 12:02:53 Checkout: 07/15/2022 12:38:00 Address: [address] [place] [address] PCP: Jose Larson MD PROVIDER INFORMATION Provider Role Assigned Unassigned Lulú Baker RN ED Nurse 07/15/2022 12:04:40 Hadley Sanderson ED PA 07/15/2022 12:18:29 VITALS INFORMATION Vital Sign Triage Latest Temperature Tympanic Temperature Temporal Artery Pulse Rate O2 Sat 98 % 98 % Respiratory Rate Blood Pressure /68 mmHg /68 mmHg MEDICAL INFORMATION Medications Given: Medication Dose Route dexamethasone 10 mg PO Allergy Information: Phenergan; promethazine PHYSICIAN DOCUMENTATION DISCHARGE INFORMATION: Discharge Disposition: Home Discharge Location: Home PATIENT EDUCATION INFORMATION Instructions: Hives; Fever, Adult; Tonsillitis Follow-Up: With: Address: When: Jose Larson MD [facility] [address] [facility] [address] [place] [address] Comments: Diagnosis is tonsillitis, history of hives, and fever. From history had hives and itching yesterday, and were painting. You may have had a contact type dermatitis or a very mild allergic reaction to something that you were in contact with. However those symptoms are resolved, and you have complaints of sore throat and fever. From physical exam he has some enlarged tonsils and some redness in the back of your throat. You may have early strep, but have at least tonsillitis were going to treated you with a dose of oral steroids here in urgent care. Also starting on amoxicillin, and Zyrtec. May take Benadryl as we discussed if you develop any further itching, or hives. Follow-up with your own primary care provider in the next 3 to 5 days for reevaluation of your diagnoses. Return to the emergency department urgent care for worsening symptoms or concerns, any development of acute shortness of breath, wheezing, chest pain, shortness of breath or abdominal pain DIAGNOSIS: 1:Tonsillitis; 2:History of urticaria; 3:Low grade fever Patient Understands: Yes - Patient/family/caregi beto verbalizes understanding of instructions given Comment: Normal [facility] ED Patient Summaryon 023 ED Patient Summary [facility] ? Urgent Care [address] [place], [place] [id number] PATIENT DISCHARGE INSTRUCTIONS Patient Information Name: MARTINA PACK Age: 37 Years Date of : 1985 Reason For Visit: UC - Ear Pain; UC - Sore Throat; UC - Headache; SORE THROAT, LT EAR PAIN, HEADACHE Arrival Time: 07/15/2022 12:02:53 Primary Care Physician: Jose Larson MD Attending Physician: Hadley Sanderson Comment: Patient Education With: Address: When: Jose Larson MD [facility] [address] [facility] [address] [place] [address] Comments: Diagnosis is tonsillitis, history of hives, and fever. From history had hives and itching yesterday, and were painting. You may have had a contact type dermatitis or a very mild allergic reaction to something that you were in contact with. However those symptoms are resolved, and you have complaints of sore throat and fever. From physical exam he has some enlarged tonsils and some redness in the back of your throat. You may have early strep, but have at least tonsillitis were going to treated you with a dose of oral steroids here in urgent care. Also starting on amoxicillin, and Zyrtec. May take Benadryl as we discussed if you develop any further itching, or hives. Follow-up with your own primary care provider in the next 3 to 5 days for reevaluation of your diagnoses. Return to the emergency department urgent care for worsening symptoms or concerns, any development of acute shortness of breath, wheezing, chest pain, shortness of breath or abdominal pain Hives Hives (urticaria) are itchy, red, swollen areas on the skin. Hives can appear on any part of the body. Hives often fade within 24 hours (acute hives). Sometimes, new hives appear after old ones fade and the cycle can continue for several days or weeks (chronic hives). Hives do not spread from person to person (are not contagious). Hives come from the body's reaction to something a person is allergic to (allergen), something that causes irritation, or various other triggers. When a person is exposed to a trigger, his or her body releases a chemical (histamine) that causes redness, itching, and swelling. Hives can appear right after exposure to a trigger or hours later. What are the causes? This condition may be caused by: ? Allergies to foods or ingredients. ? Insect bites or stings. ? Exposure to pollen or pets. ? Spending time in sunlight, heat, or cold (exposure). ? Exercise. ? Stress. You can also get hives from other medical conditions and treatments, such as: ? Viruses, including the common cold. ? Bacterial infections, such as urinary tract infections and strep throat. ? Certain medicines. ? Contact with latex or chemicals. ? Allergy shots. ? Blood transfusions. Sometimes, the cause of this condition is not known (idiopathic hives). What increases the risk? You are more likely to develop this condition if you: ? Are a woman. ? Have food allergies, especially to citrus fruits, milk, eggs, peanuts, tree nuts, or shellfish. ? Are allergic to: ? Medicines. ? Latex. ? Insects. ? Animals. ? Pollen. What are the signs or symptoms? Common symptoms of this condition include raised, itchy, red or white bumps or patches on your skin. These areas may: ? Become large and swollen (welts). ? Change in shape and location, quickly and repeatedly. ? Be separate hives or connect over a large area of skin. ? Sting or become painful. ? Turn white when pressed in the center (haley). In severe cases, your hands, feet, and face may also become swollen. This may occur if hives develop deeper in your skin. How is this diagnosed? This condition may be diagnosed by your symptoms, medical history, and physical exam. ? Your skin, urine, or blood may be tested to find out what is causing your hives and to rule out other health issues. ? Your health care provider may also remove a small sample of skin from the affected area and examine it under a microscope (biopsy). How is this treated? Treatment for this condition depends on the cause and severity of your symptoms. Your health care provider may recommend using cool, wet cloths (cool compresses) or taking cool showers to relieve itching. Treatment may include: ? Medicines that help: ? Relieve itching (antihistamines). ? Reduce swelling (corticosteroids). ? Treat infection (antibiotics). ? An injectable medicine (omalizumab). Your health care provider may prescribe this if you have chronic idiopathic hives and you continue to have symptoms even after treatment with antihistamines. Severe cases may require an emergency injection of adrenaline (epinephrine) to prevent a life-threatening allergic reaction (anaphylaxis). Follow these instructions at home: Medicines ? Take and apply [id number] and prescription medicines only (more content not included)... Normal [facility] 023 Urgent Care Record [facility] ? Urgent Care [address] [place] [address] PATIENT DISCHARGE INSTRUCTIONS Patient Information Name: MARTINA PACK Age: 37 Years Date of : 1985 Reason For Visit: UC - Ear Pain; UC - Sore Throat; UC - Headache; SORE THROAT, LT EAR PAIN, HEADACHE Arrival Time: 07/15/2022 12:02:53 Primary Care Physician: Jose Larson MD Attending Physician: Hadley Sanderson Comment: Visit Diagnosis: Diagnoses This Visit History of urticaria (Z87.2) Low grade fever (R50.9) Tonsillitis (J03.90) UC - Ear Pain ([id number]) UC - Headache ([id number]) UC - Sore Throat ([id number]) If you received any narcotics, sedation, or any other medication that causes drowsiness for the next 24 hours, unless otherwise directed: ? Do not drive a car. ? Do not operate machinery such as power tools, lawn mowers, drills, sewing machines, or stoves ? Avoid alcoholic beverages and drugs for allergies, nerves, or sleep ? Do not make important personal or business decisions or sign any legal documents With: Address: When: Jose Larson MD [facility] [id number] [place] [address] Comments: Diagnosis is tonsillitis, history of hives, and fever. From history had hives and itching yesterday, and were painting. You may have had a contact type dermatitis or a very mild allergic reaction to something that you were in contact with. However those symptoms are resolved, and you have complaints of sore throat and fever. From physical exam he has some enlarged tonsils and some redness in the back of your throat. You may have early strep, but have at least tonsillitis were going to treated you with a dose of oral steroids here in urgent care. Also starting on amoxicillin, and Zyrtec. May take Benadryl as we discussed if you develop any further itching, or hives. Follow-up with your own primary care provider in the next 3 to 5 days for reevaluation of your diagnoses. Return to the emergency department urgent care for worsening symptoms or concerns, any development of acute shortness of breath, wheezing, chest pain, shortness of breath or abdominal pain Medication Information: The exam and treatment you received today in the [facility] were for an urgent problem and are not intended as complete care. It is important for you to follow up with a doctor, nurse practitioner, or physician?s administrative assistant receptionist for ongoing care. If your symptoms become worse or you do not improve as expected and you are unable to reach your usual health care provider, you should return to the Emergency Department, we are available 24 hours a day. For those patients who have received Radiology results, the interpretation of your X-ray as given to you by our Urgent Care physician is only a preliminary report. The Radiologist will review your films and if there is a change in the diagnosis you will be notified by phone. Please make sure you have provided a working phone number so we can reach you if necessary. In the event that you had a lab culture while you were a patient in the Urgent Care, you will be notified by phone if there is a need to change your antibiotic. Please make sure you have provided a working phone number so we can reach you if necessary. [facility] has provided you with a complete list of medications post discharge. Please inform your global upstream marketing manager/provider of your visit and for further instruction on these medications. Any specific questions regarding your chronic medications and dosages should be discussed with your primary care physician(s) and/or pharmacist. New Medications [facility] [address] [place], [place] [id number], [phone] amoxicillin (amoxicillin 500 mg oral capsule) 2 cap(s) Oral every day for 10 Days. Refills: 0. cetirizine (ZyrTEC 10 mg oral tablet) 1 tab(s) Oral every day. Refills: 0. Additional medications on your home medication list not specifically addressed. Please contact the ordering physician if you have questions about these medications. spironolactone (Aldactone 50 mg oral tablet) 1 tab(s) Oral every day. Refills: 2. valACYclovir (Valtrex 1 g oral tablet) 1 tab(s) Oral 2 times a day. Refills: 1. Visit Information Allergies: Substance Reaction Symptoms Type Comments Phenergan Shakes Drug promethazine Shakes Drug Vital Signs: Vitals and Measurements this Visit (last charted value for your 07/15/2022 visit) Vital Signs This Visit Temperature Oral: 37.1 DegC Peripheral Pulse Rate: 90 bpm Respiratory Rate: 16 br/min Systolic Blood Pressure: 110 mmHg Diastolic Blood Pressure: 68 mmHg SpO2: 98 % Oxygen Therapy: Room air Blood Pressure Method: Manual Measurements This Visit Height/Length Measured: 162.56 cm Weight Measured: 68.95 kg Body Mass Ind (more content not included)... Normal [facility] MG MAMM SCREEN 3D JUSTINA CADon 03-14-2022 MG MAMM SCREEN 3D JUSTINA CAD Patient: MARTINA PACK Exam Date: 03/14/2022 : 1985 Gender:F Ordering : DR OSWALD WHIPPLE . Admission #: [id number] Family : Order #: [id number] CLICK HERE TO VIEW EXAM RADIOLOGY REPORT PROCEDURE: MAMMOGRAM SCREENING 3D BILATERAL CAD COMPARISON: None. INDICATIONS: Family history of malignant neoplasm of breast Calculator Name NCI Breast Cancer Risk Assessment Tool 5 Year Breast Cancer Risk 0.40% Lifetime Breast Cancer Risk 9.10% Personal Breast Cancer No Personal Ovarian Cancer No Treatments None Family Cancers Aunt-maternal with breast cancer at age 60; Cousin-maternal with breast cancer at age 41. LOCATION: [facility] BREAST COMPOSITION: Extremely dense, which lowers the sensitivity of mammography. FINDINGS: DIAGNOSTIC CATEGORY 1--NEGATIVE. RIGHT BREAST: No significant suspicious finding. LEFT BREAST: No significant suspicious finding. RECOMMENDATIONS: ROUTINE MAMMOGRAM AND CLINICAL EVALUATION IN 12 MONTHS. PLEASE NOTE: A NORMAL MAMMOGRAM DOES NOT EXCLUDE THE POSSIBILITY OF BREAST CANCER. A CLINICALLY SUSPICIOUS PALPABLE LUMP SHOULD BE BIOPSIED. Dictated by: Madan Sabillon M.D. on 03/15/2022 at 07:31 Approved by: Madan Sabillon M.D. on 03/15/2022 at 07:35 Normal [facility] PAP ACOG PANEL 2: 30 to 65on 03-10-2022 . . Normal [facility] Comment on above: Result Comment: Perf ormed at: WB Performed By: #### [id number] #### [facility] [address] [address] [address] Yosef Mcdonough Age Gdln ACOG Testing 30-65 Normal [facility] Comment on above: Performed By: #### 4 [id number] #### [facility] [address] [address] [address] Yosef Mcdonough DIAGNOSIS: Comment Abnormal [facility] Comment on above: Result Comment: EPIT HELIAL CELL ABNORMALITY. ATYPICAL SQUAMOUS CELLS OF UNDETERMINED SIGNIFICANCE (ASC-US). Performed at: WB Performed By: #### [id number] #### [facility] [address] [address] [address] Yosef Mcdonough Electronically signed by: Comment Normal [facility] Comment on above: Result Comment: Deyanira Valdovinos MD, Pathologist Performed at: WB Performed By: #### [id number] #### [facility] [address] [address] [address] Yosef Mcdonough HPV Aptima Negative Normal Negative [facility] Comment on above: Result Comment: This nucleic acid amplification test detects fourteen high-risk HPV types (16,18,31,33,35,39,45,51,52,56,58,59,66,68) without differentiation. Performed at: =G Performed By: #### [id number] #### [facility] [address] [address] [address] Yosef Mcdonough HPV Genotype Reflex Comment Normal [facility] Comment on above: Result Comment: Crit eria not met, HPV Genotype not performed. Performed at: WB Performed By: #### 4 [id number] #### [facility] [address] [address] [address] Yosef Mcdonough Methodology: Comment Normal [facility] Comment on above: Result Comment: This liquid based ThinPrep(R) pap test was screened with the use of an image guided system. Performed at: WB Performed By: #### 4 [id number] #### [facility] [address] [address] [address] Yosef Mcdonough Note: Comment Normal [facility] Comment on above: Result Comment: The Pap smear is a screening test designed to aid in the detection of premalignant and malignant conditions of the uterine cervix. It is not a diagnostic procedure and should not be used as the sole means of detecting cervical cancer. Both false-positive and false-negative reports do occur. . Performed at: WB Performed By: #### 4 [id number] #### [facility] [address] [address] [address] Yosef Mcdonough Pathologist Provided ICD10 Comment Normal [facility] Comment on above: Result Comment: R87. 610 Performed at: WB Performed By: #### 4 [id number] #### [facility] [address] [place] [address] Dr. Yosef Mcdonough Performed by: Comment Normal [facility] Comment on above: Result Comment: Ema Barrera Paper Maker (ASCP) Performed at: WB Performed By: #### 4 [id number] #### [facility] [address] [address] [address] Yosef Mcdonough Recommendation: Comment Abnormal [facility] Comment on above: Result Comment: Sugg est follow up as clinically appropriate. Performed at: WB Performed By: #### 4 [id number] #### [facility] [address] [address] [address] Yosef Mcdonough Specimen adequacy: Comment Normal [facility] Comment on above: Result Comment: Sati sfactory for evaluation. No endocervical component is identified. Performed at: WB Performed By: #### 4 [id number] #### [facility] [address] [place] [address] Dr. Yosef Mcdonough Coding Summary.on 11-19-2019 Coding Summary. CODING DATE: 11/19/2019 [facility] STATUS: Home (Routine DC) PAYOR: [facility] DESCRIPTION 5373 Level 3 Urology and Related Services ADMIT DX: REASON FOR VISIT DX: Z46.6 Encounter for fitting and adjustment of urinary device FINAL DX: PRINCIPAL: Z46.6 Encounter for fitting and adjustment of urinary device SECONDARY: Z87.442 Personal history of urinary calculi F17.210 Nicotine dependence, cigarettes, uncomplicated PYMT PROC APC STAT DESCRIPTION DOCTOR NAME DATE NOTE: The code number assigned matches the documented diagnosis and / or procedure in the patient's chart. However, the narrative phrase printed from the coding software may appear abbreviated, or result in slightly different terminology. Coded By: Emilia Carrillo Date Saved: 11/19/2019 12:36 pm [facility] Consent for Procedure/Surger yon 11-19-2019 Consent for Procedure/Surgery [id number]# 1.00CD:127 [facility] Discharge Instructionson Discharge Instructions [id number]# 1.00CD:127 [facility] IntraOperative Documentson 0 11-19-2019 IntraOperative Documents [id number]# 1.00CD:127 [facility] Lab Reportson 11-19-2019 Lab Reports [id number] .00CD:127 [facility] Consent for Treatmenton 11-07 Consent for Treatment [id number] .00CD:127 [facility] Main OR Intraoperative Recor don 11-18-2019 Main OR Intraoperative Record IntraOp Document Type FTURO Summary Primary Physician: Twan RODRIGUEZ MD Finalized Date/Time: 11/18/19 15:33:41 Pt. Name: MARTINA PACK/Sex: 1985 Female Med Rec #: [id number] Physician: Twan RODRIGUEZ MD Financial #: [id number] Pt. Type: O Room/Bed: / Admit/Disch: 11/18/19 14:46:18 - Institution: Case Times FTURO Entry 1 Patient Times In Room 11/18/19 15:20:00 Out Room 11/18/19 15:35:00 Procedure Times Start 11/18/19 15:29:00 Stop 11/18/19 15:31:00 Anesthesia Times Last Modified By: JERAMY Howard RN, Lou Ann 11/18/19 15:33:13 Case Attendance FTURO Entry 1 Entry 2 Entry 3 Case Attendee Twan RODRIGUEZ MD, RN, MIRIAM[address]anya [address] PRODUCTION GENERAL MANAGER, Josiane Role Performed Surgeon - Primary Electrical Maintenance Supervisor - Primary Scrub - Primary Time In 11/18/19 15:27:00 11/18/19 15:20:00 11/18/19 15:20:00 Time Out 11/18/19 15:35:00 11/18/19 15:35:00 11/18/19 15:35:00 Procedure CYSTOSCOPY LOCAL WITH CYSTOSCOPY LOCAL WITH CYSTOSCOPY LOCAL WITH STENT REMOVAL(Right) STENT REMOVAL(Right) STENT REMOVAL(Right) Comments Last Modified By: JERAMY Howard RN, Lou Ann Blank RN, CNOR, Lou Ann Blank RN, CNOR, Lou Ann 11/18/19 15:33:38 11/18/19 15:33:13 11/18/19 15:33:13 Surgical Procedures FTURO Entry 1 Procedure Description Procedure CYSTOSCOPY LOCAL WITH Modifiers Right STENT REMOVAL Surgeon Description CYSTO RIGHT STENT REMOVAL Primary Procedure Yes Primary Surgeon Twan RODRIGUEZ MD Start 11/18/19 15:29:00 Stop 11/18/19 15:31:00 Anesthesia Type Local Surgical Service Urology Wound Class 2 - Clean-Contaminated Last Modified By: JERAMY Howard RN, Lou Ann 11/18/19 15:33:09 General Case Data FTURO Pre-Care Text: Classifies surgical wound, implements aseptic technique, initiates traffic control Entry 1 Case Information OR URO 1 FT Case Level None Wound Class 2 - Clean-Contaminated Specialty Urology Preop Diagnosis STATUS POST RIGHT STENT Postop Same As Preop Yes PLACEMENT Postop Diagnosis STATUS POST RIGHT STENT Outcomes Met? Yes PLACEMENT Last Modified By: JERAMY Howard RN, Lou Ann 11/18/19 09:42:41 Post-Care Text: The patient is free from signs and symptoms of infection EU IntraOp - FTURO Pre-Care Text: Implements protective measures prior to operative or invasive procedure, confirms identity before the operative or invasive procedure, verifies operative procedure, surgical site, and laterality Entry 1 EU Perioperative Protocols Procedure(s) CYSTOSCOPY LOCAL WITH Patient Identity ID Band Check, Patient STENT REMOVAL(Right) Verified (select at Participation least 2): Consents / H and P HandP, Surgery/Procedure Operative Site N/A Verified Consent Marking Verified Surgical Site Yes Laterality Verified Yes Verified Procedure Verified Yes Correct Patient Yes Position Verified Availability Equipment, Medication Time Out Twan RODRIGUEZ MD, Verified (If Participants JERAMY Howard RN, Lou Applicable) Lona Hernandez CST, Josiane Time Out Complete 11/18/19 15:28:00 Allergies Reviewed? Yes Allergies Reviewed Self/Patient With Body Position Frog Legged Prep Area perenium Prep Agents Betadine Solution Skin. Condition Warm, Unable to Description clothing on Visualize Additional None Specimens Collected Vitals - EU Blood Pressure 119/73 Pulse 64 bpm Respirations 18 br/min SPO2 EBL 0 IandO - EU Total Intake 0 mL Total Output 0 mL Outcomes Met? Yes Last Modified By: JERAMY Howard RN, Lou Ann 11/18/19 15:28:09 Post-Care Text: The patient is free from signs and symptoms of injury caused by extraneous objects Case Comments Finalized By: JERAMY Howard RN, Lou Ann Document Signatures Signed By: JERAMY Howard RN, Lou Ann 11/18/19 15:33 Normal [facility] Main OR Preoperative Recordo n 11-18-2019 Main OR Preoperative Record Holding Area Document Type FTURO Summary Primary Physician: Twan RODRIGUEZ MD Finalized Date/Time: 11/18/19 15:24:21 Pt. Name: MARTINA PACK/Sex: 1985 Female Med Rec #: [id number] Physician: Twan RODRIGUEZ MD Financial #: [id number] Pt. Type: O Room/Bed: / Admit/Disch: 11/18/19 14:46:18 - Institution: Case Times Holding FTURO Pre-Care Text: Verifies consent for planned procedure, identifies individual values and wishes concerning care, includes family members in perioperative teaching Secures patient's records' belongings, and valuables, maintains patient's dignity and privacy, and maintains patient confidentiality Entry 1 In Holding 08/11/20 14:46:00 Outcomes Met? Yes Last Modified By: Arcelia Hinson LPN 11/18/19 14:46:54 Post-Care Text: The patient participates in decisions affecting his or her perioperative plan of care The patient's right to privacy is maintained Surgery Checklist FTURO Entry 1 Patient Birthday, ID Band Procedure History and Physical, Identification: Check, Patient Verification: Surgical Consent, With Participation Patient NPO after Midnight: n/a Personal Items: Contact Lenses, Jewelry Personal Items ring, watch Complaints of Pain: No Comment: Skin Integrity Unable to Visualize Vitals - EU Blood Pressure 119/73 Pulse 64 bpm Respirations 18 br/min SPO2 Additional None RN Reviewed Yes Specimens Collected Last Modified By: JERAMY Howard RN, Lou Ann 11/18/19 15:24:20 General Comments: Temp. 36.6 Finalized By: JERAMY Howard RN, Lou Ann Document Signatures Signed By: Arcelia Hinson LPN 11/18/19 14:54 JERAMY Howard RN, Lou Ann 11/18/19 15:24 Normal [facility] Operative Reporton 0 Operative Report Patient: MARTINA PACK Age: 34 years Sex: Female : 1985 Associated Diagnoses: None Author: Tawn RODRIGUEZ MD Procedure Operative Information Details: Date/ Time: 11/18/2019 15:33:00. Pre-Op Dx: Foreign Body in Bladder - T19.1XXA. Post-Op Dx: Same. Anesthesia Type: Local. Procedure: Local Cystoscopy with Stent Removal. Complications: None. Risks/Benefits/Inform ed Consent: Surgical risks, benefits, details of the procedure have been explained to the patient, Full informed consent has been obtained. Intraoperative Information Prepped: The patient was placed in a modified dorso-lithotomy position, The patient was prepped with the Betadine solution. Anesthesia: 2% Xylocaine Jelly per urethra. Procedure: Cystoscopy and Right Stent Removal, The flexible Cystoscope was passed in retrograde fashion into the bladder without difficulty, The bladder was viewed in entirety and found to be without tumors or stones, Mild inflammation was seen surrounding the orifice with the stent seen protruding from it, The stent was then grasped and removed in its entirety. Specimens Removed: None. Devices Implanted: None. Postoperative Information Discharge: The patient tolerated the procedure well and was subsequently discharged home. [facility] Comment on above: Result Comment: Elec tronically Signed By: ROSALIE MARES, Twan Thompson\Date and Time Signed: 11/18/19 15:34 EDT Lab Reportson 11-07-2019 Lab Reports [id number] .00CD:127 [facility] Operative Reporton 0 Operative Report [id number]. 00CD:127 [facility] Formson 11-05-2019 Forms [id number] .00CD:127 [facility] Lab Reportson 11-05-2019 Lab Reports [id number] .00CD:127 [facility] RAD - CT Reporton 11-05-2019 RAD - CT Report [id number]. 00CD:127 [facility] RAD - MISCon 11-05-2019 RAD - MISC [id number] .00CD:127 [facility] Formson 11-04-2019 Forms [id number]. 00CD:127 [facility] Ambulatory Clinical Summaryo n 11-03-2019 Ambulatory Clinical Summary {[id number]}CD:[id number] [facility] Patient Educationon 11-03-19 20 Patient Education Family Medicine Kidney Stones Kidney stones (ureteral lithiasis ) are solid masses that form inside your kidneys. The intense pain is caused by the stone moving through the kidney, ureter, bladder, and urethra (urinary tract ). When the stone moves, the ureter starts to spasm around the stone. The stone is usually passed in the urine. HOME CARE ? Drink enough fluids to keep your pee (urine ) clear or pale yellow. This helps to get the stone out. ? Strain all pee through the provided strainer. Do not pee without peeing through the strainer, not even once. If you pee the stone out, catch it. The stone may be as small as a grain of salt. Take this to your doctor. ? Only take medicine as told by your doctor. ? Follow up with your doctor as told. ? Get follow-up X-rays as told by your doctor. GET HELP RIGHT AWAY IF: ? Your pain does not get better with medicine. ? You have a fever. ? Your pain increases and gets worse over 18 hours. ? You have new belly (abdominal ) pain. ? You feel faint or pass out. MAKE SURE YOU: ? Understand these instructions. ? Will watch your condition. ? Will get help right away if you are not doing well or get worse. Document Released: 09/11/2008 Document Revised: 06/17/2012 Document Reviewed: 01/21/2010 ExitCare? Patient Information ?2013 [employer]. Normal [facility] [id number]. 00CD:127 Normal [facility] Urology Office/Clinic Noteon 11-03-2019 Urology Office/Clinic Note Chief Complaint f/u to [place] [facility] HPI Staff Pt here as a new Pt, following up to [place] ER visit on 10/28 due to kidney stones. Pt had CT done while in the ER and KUB done today at [place]. Pt states that she did strain her pee and passed something. She forgot to bring it with her today but does have the stone at home. She states she passed this on Sunday. Nausea and dizziness with quick head movements and bending over. Pt states this is her first stone but does have a positive family Hx of stones. Dysuria: No Incomplete bladder emptying: Feels empty Hematuria: Denies visible blood in her urine Frequency: No. Pt goes 4-5x a day. Urgency: No Nocturia: No Stream: Slow in the morning but otherwise good. Leaking: No Post void dripping: No Wearing pads/ Depends: No Urge incontinence: No Stress incontinence: No Abdominal pain: Pain radiated from right side of back to RLQ Flank pain: Sharp shooting pains in right side when she bends over to put her hair up. Sexual complaints: No History of Present Illness Reviewed UA. Reviewed blood work. Reviewed CT report and KUB report and film. Reviewed [employer] paperwork. There have been no associated fever, chills, flank pain or blood in the urine. Pt. denies any pain/burning with urination at this time. Review of Systems PHQ Score Initial Depression Screen Score: 0 ROS - Provider Constitutional: denies weight loss, denies hot flashes. Eyes: denies eye problems. Gastrointestinal: denies nausea, denies vomiting. Cardiovascular: denies chest pain or angina. Integumentary: no dryness Musculoskeletal: denies musculoskeletal symptoms. ENMT: denies otolaryngeal symptoms. Respiratory: no shortness of breath. Heme/Lymph: denies easy bleeding tendency, denies easy bruising tendency. Psychiatric: no confusion, no anxiety. Genitourinary: denies vaginal discharge, denies incontinence, denies dysuria, denies hematuria, denies urinary frequency, denies amenorrhea, denies menorrhagia, denies abnormal bleeding, denies pelvic pain, denies genital sores, and denies decreased libido. Physical Exam Vitals & Measurements HR: 65(Peripheral) RR: 16 BP: 115/81 HT: 162.56 cm WT: 69.8 kg BMI: 26.41 General Appearance: alert , no acute distress, well nourished, well developed female. Head: normocephalic . Eyes: normal orbit and globe. ENMT: normal examination of external ears. Chest: Lungs CTA, respirations non labored . Cardiovascular: regular rate and rhythm. Abdomen: soft, non distended, no tenderness, no mass or organomegaly, no hernia. Tender rt. CVA and RLQ. Genitourinary: bladder nonpalpable, no flank tenderness. Lymph Nodes: unremarkable palpation of the cervical area. Skin: warm, dry, no bruising. Psychiatric: cooperative, affect appropriate for age, normal judgement, euthymic mood. Assessment/Plan 1. Kidney stone (N20.0: Calculus of kidney) Pt. is doing well overall with her urination. CT done on 10/29/2019 that shows a 4mm stone in distal R ureter. KUB done 11/03/2019 shows no visible urinary tract calculi. Pt. states that she passed the stone on Sunday. From today's exam, seems like pt. may still have the stone. Recommended pt. to increase fluid intake to ten to twelve 16oz bottles a day; preferably water, clear pop, and sugar free lemonade to help move the stone. If pt. has not passed the stone, discussed possible procedure for stone manipulation. 2. Abdominal pain, (R10.9: Unspecified abdominal pain)Flank pain Sharp shooting pains on right side when she bends over to put her hair up. Last bout of pain was yesterday. I have reviewed the previous health record information and history for this pt. from Dr. Rodriguez. Follow-up With When Contact Information ROSALIE MARES, Twan [facility] [email or web address] [place] [address]- [phone] Additional Instructions: Patient Education Kidney Stones, Bhyc-rw-Ywgy I, Lula Bajwa , personally scribed for Dr. Rodriguez on 11/03/2019 12:59:15. . Problem List/Past Medical History Ongoing Abdominal pain Flank pain Historical No qualifying data Procedure/Surgical History Appendectomy, Caesarean section. Medications Mirena 52 mg intrauteral device, 52 mg= 1 EA, IntraUteral, Once Zofran Allergies Phenergan (Twitching) Social History Tobacco 5-9 cigarettes (between 1/4 to 1/2 pack)/day in last 30 days Tobacco Use:. Cigarettes, 11/03/2019 Family History Diabetes mellitus type 2: Grandparent. Hypertension: Grandparent. Stroke: Grandparent. Lab Results Ambulatory Point of Care Results Bilirubin Urine Dipstick: Negative (11/03/19 12:32:00) Blood Urine Dipstick: Negative (11/03/19 12:32:00) Glucose Urine Dipstick: Negative (11/03/19 12:32:00) Ketones Urine Dipstick: Negative (11/03/19 12:32:00) Leukocytes Urine Dipstick: Negative (11/03/19 12:32:00) Nitrite Urine Dipstick: Negative (11/03/19 12:32:00) Protein Urine Dip (more content not included)... Normal [facility] Comment on above: Result Comment: Elec tronically Signed By: Twan RODRIGUEZ MD\.br\Date and Time Signed: 11/03/19 13:07 EDT\.br\Electronically Co-Signed By: Lula Bajwa MA\.br\Date and Time Co-Signed: 11/03/19 12:59 EDT Encounters Encounter Date Encounter Type Care Provider Facility Start: 04-18-2023 End: 04-18-2023 ambulatory OSWALD WHIPPLE Not Available Start: 03-12-2023 End: 03-12-2023 ambulatory OSWALD WHIPPLE Not Available Start: 12-29-2022 ambulatory Jose M Blunt Facility: [facility] Start: 12-20-2022 End: 12-20-2022 ambulatory VELASQUEZ Guerrero Facility:[facility] Start: 11-03-2022 End: 11-04-2022 ambulatory Jose M Blunt Facility:[facility] Start: 08-08-2022 End: 08-09-2022 ambulatory Jose M Blunt Facility:[facility] Start: 08-05-2022 End: 08-06-2022 Emergency department patient visit Jose M Neo Facility:[facility] Start: 07-19-2022 End: 07-20-2022 ambulatory Jose M Neo Facility:[facility] Start: 07-18-2022 End: 07-18-2022 ambulatory Hadley ENG Facility:[facility] Start: 07-15-2022 End: 07-15-2022 ambulatory Hadley ENG Facility:[facility] Start: 03-14-2022 End: 03-15-[address] OSWALD WHIPPLE Facility:[facility] Start: 03-01-2022 End: 03-01-[address] OSWALD WHIPPLE Facility:[facility] Start: 03-01-2022 End: 03-02-2022 ambulatory Jose Ivanna Larson Facility:[facility] Payers Date Payer Category Payer Unknown [id number] 2.16.84 [id number] 1985 Unknown [id number] 2.16.84 [id number] 1985 Unknown [id number] 2.16.8 [id number] 1985 Unknown [id number] 2.16.8 [id number] 1985 Unknown [id number] 2.16.8 [id number] 1985 Unknown [id number] 2.16.8 [id number] 1985 Unknown [id number] 2.16.8 [id number] 1985 Unknown [id number] 2.16.8 [id number] 1985 Unknown [id number] 2.16.8 [id number] 1985 Unknown [id number] 2.16.8 [id number] 1985 Unknown [id number] 2.16.84 [id number] 1985 Unknown [id number] 2.16.84 [id number] 1985 Unknown [id number] 2.16.840 [id number] 1959 Unknown [id number] Clinical Note 12-20-2022 Note Date & Type Note Facility 12-20-2022 Note Patient Education Ma terials Follows:Disease Sore Throat A sore throat is pain, burning, irritation, or scratchiness in the throat. When you have a sore throat, you may feel pain or tenderness in your throat when you swallow or talk. Many things can cause a sore throat, including: ? An infection. ? Seasonal allergies. ? Dryness in the air. ? Irritants, such as smoke or pollution. ? Radiation treatment for cancer. ? Gastroesophageal reflux disease (GERD). ? A tumor. A sore throat is often the first sign of another sickness. It may happen with other symptoms, such as coughing, sneezing, fever, and swollen neck glands. Most sore throats go away without medical treatment. Follow these instructions at home: Medicines ? Take zbyw-ata-xzzkscy and prescription medicines only as told by your health care provider. ? Children often get sore throats. Do not give your child aspirin because of the association with Nba's syndrome. ? Use throat sprays to soothe your throat as told by your health care provider. Managing pain To help with pain, try: ? Sipping warm liquids, such as broth, herbal tea, or warm water. ? Eating or drinking cold or frozen liquids, such as frozen ice pops. ? Gargling with a mixture of salt and water 3?4 times a day or as needed. To make salt water, completely dissolve ??1 tsp (3?6 g) of salt in 1 cup (237 mL) of warm water. ? Sucking on hard candy or throat lozenges. ? Putting a cool-mist humidifier in your bedroom at night to moisten the air. ? Sitting in the bathroom with the door closed for 5?10 minutes while you run hot water in the shower. General instructions ? Do not use any products that contain nicotine or tobacco. These products include cigarettes, chewing tobacco, and vaping devices, such as e-cigarettes. If you need help quitting, ask your health care provider. ? Rest as needed. ? Drink enough fluid to keep your urine pale yellow. ? Wash your hands often with soap and water for at least 20 seconds. If soap and water are not available, use hand jewelry facer. Contact a health care provider if: ? You have a fever for more than 2?3 days. ? You have symptoms that last for more than 2?3 days. ? Your throat does not get better within 7 days. ? You have a fever and your symptoms suddenly get worse. Get help right away if: ? You have difficulty breathing. ? You cannot swallow fluids, soft foods, or your saliva. ? You have increased swelling in your throat or neck. ? You have persistent nausea and vomiting. These symptoms may represent a serious problem that is an emergency. Do not wait to see if the symptoms will go away. Get medical help right away. Call your local emergency services (911 in the [place] Do not drive yourself to the hospital. Summary ? A sore throat is pain, burning, irritation, or scratchiness in the throat. Many things can cause a sore throat. ? Take qmwa-vyh-szaygka medicines only as told by your health care provider. ? Rest as needed. ? Drink enough fluid to keep your urine pale yellow. ? Contact a health care provider if your throat does not get better within 7 days. This information is not intended to replace advice given to you by your health care provider. Make sure you discuss any questions you have with your health care provider. Document Revised: 06/22/2021 Document Reviewed: 06/22/2021 [employer] Patient Education ? 2022 [employer]. [facility] Medication management note 08-08-2022 Note Date & Type Note Facility 08-08-2022 Note [id number] F [facility] Clinical Note 08-06-2022 Note Date & Type Note Facility 08-06-2022 Note Education Materials Gastroenterology Viral Gastroenteritis, Adult Viral gastroenteritis is also known as the stomach flu. This condition may affect your stomach, your small intestine, and your large intestine. It can cause sudden watery poop (diarrhea), fever, and throwing up (vomiting). This condition is caused by certain germs (viruses). These germs can be passed from person to person very easily (are contagious). Having watery poop and throwing up can make you feel weak and cause you to not have enough water in your body (get dehydrated). This can make you tired and thirsty, make you have a dry mouth, and make it so you pee (urinate) less often. It is important to replace the fluids that you lose from having watery poop and throwing up. What are the causes? ? You can get sick by catching viruses from other people. ? You can also get sick by: ? Eating food, drinking water, or touching a surface that has the viruses on it (is contaminated). ? Sharing utensils or other personal items with a person who is sick. What increases the risk? ? Having a weak body defense system (immune system). ? Living with one or more children who are younger than 2 years old. ? Living in a [place]. ? Going on cruise ships. What are the signs or symptoms? Symptoms of this condition start suddenly. Symptoms may last for a few days or for as long as a week. ? Common symptoms include: ? Watery poop. ? Throwing up. ? Other symptoms include: ? Fever. ? Headache. ? Feeling tired (fatigue). ? Pain in the belly (abdomen). ? Chills. ? Feeling weak. ? Feeling sick to your stomach (nauseous). ? Muscle aches. ? Not feeling hungry. How is this treated? ? This condition typically goes away on its own. ? The focus of treatment is to replace the fluids that you lose. This condition may be treated with: ? An ORS (oral rehydration solution). This is a drink that is sold at pharmacies and stores. ? Medicines to help with your symptoms. ? Probiotic supplements to reduce symptoms of diarrhea. ? Fluids given through an IV tube, if needed. ? Older adults and people with other diseases or a weak body defense system are at higher risk for not having enough water in the body. Follow these instructions at home: Eating and drinking ? Take an ORS as told by your doctor. ? Drink clear fluids in small amounts as you are able. Clear fluids include: ? Water. ? Ice chips. ? Fruit juice with water added to it (diluted). ? Low-calorie sports drinks. ? Drink enough fluid to keep your pee (urine) pale yellow. ? Eat small amounts of healthy foods every 3?4 hours as you are able. This may include whole grains, fruits, vegetables, lean meats, and yogurt. ? Avoid fluids that have a lot of sugar or caffeine in them, such as energy drinks, sports drinks, and soda. ? Avoid spicy or fatty foods. ? Avoid alcohol. General instructions ? Wash your hands often. This is very important after you have watery poop or you throw up. If you cannot use soap and water, use hand jewelry facer. ? Make sure that all people in your home wash their hands well and often. ? Take blfm-olw-kramjgy and prescription medicines only as told by your doctor. ? Rest at home while you get better. ? Watch your condition for any changes. ? Take a warm bath to help with any burning or pain from having watery poop. ? Keep all follow-up visits as told by your doctor. This is important. Contact a doctor if: ? You cannot keep fluids down. ? Your symptoms get worse. ? You have new symptoms. ? You feel light-headed. ? You feel dizzy. ? You have muscle cramps. Get help right away if: ? You have chest pain. ? You feel very weak. ? You pass out (faint). ? You see blood in your throw-up. ? Your throw-up looks like coffee grounds. ? You have bloody or black poop (stools) or poop that looks like tar. ? You have a very bad headache, or a stiff neck, or both. ? You have a rash. ? You have very bad pain, cramping, or bloating in your belly. ? You have trouble breathing. ? You are breathing very quickly. ? You have a fast heartbeat. ? Your skin feels cold and clammy. ? You feel mixed up (confused). ? You have pain when you pee. ? You have signs of not having enough water in the body, such as: ? Dark pee, hardly any pee, or no pee. ? Cracked lips. ? Dry mouth. ? Sunken eyes. ? Feeling very sleepy. ? Feeling weak. Summary ? Viral gastroenteritis is also known as the stomach flu. ? This condition can cause sudden watery poop (diarrhea), fever, and throwing up (vomiting). ? These germs can be passed from person to person very easily. ? Take an ORS as told by your doctor. This is a drink that is sold at pharmacies and stores. ? Drink fluids in small amounts many times each day as you are able. This information is not intended to (more content not included)... [facility] Clinical Note 07-18-2022 Note Date & Type Note Facility 07-18-2022 Note Patient Education Ma terials Follows: Cough, Adult Coughing is a reflex that clears your throat and your airways (respiratory system). Coughing helps to heal and protect your lungs. It is normal to cough occasionally, but a cough that happens with other symptoms or lasts a long time may be a sign of a condition that needs treatment. An acute cough may only last 2?3 weeks, while a chronic cough may last 8 or more weeks. Coughing is commonly caused by: ? Infection of the respiratory systemby viruses or bacteria. ? Breathing in substances that irritate your lungs. ? Allergies. ? Asthma. ? Mucus that runs down the back of your throat (postnasal drip). ? Smoking. ? Acid backing up from the stomach into the esophagus (gastroesophageal reflux). ? Certain medicines. ? Chronic lung problems. ? Other medical conditions such as heart failure or a blood clot in the lung (pulmonary embolism). Follow these instructions at home: Medicines ? Take ocac-hig-acjuvyo and prescription medicines only as told by your health care provider. ? Talk with your health care provider before you take a cough suppressant medicine. Lifestyle ? Avoid cigarette smoke. Do not use any products that contain nicotine or tobacco, such as cigarettes, e-cigarettes, and chewing tobacco. If you need help quitting, ask your health care provider. ? Drink enough fluid to keep your urine pale yellow. ? Avoid caffeine. ? Do not drink alcohol if your health care provider tells you not to drink. General instructions ? Pay close attention to changes in your cough. Tell your health care provider about them. ? Always cover your mouth when you cough. ? Avoid things that make you cough, such as perfume, candles, cleaning products, or campfire or tobacco smoke. ? If the air is dry, use a cool mist vaporizer or humidifier in your bedroom or your home to help loosen secretions. ? If your cough is worse at night, try to sleep in a semi-upright position. ? Rest as needed. ? Keep all follow-up visits as told by your health care provider. This is important. Contact a health care provider if you: ? Have new symptoms. ? Cough up pus. ? Have a cough that does not get better after 2?3 weeks or gets worse. ? Cannot control your cough with cough suppressant medicines and you are losing sleep. ? Have pain that gets worse or pain that is not helped with medicine. ? Have a fever. ? Have unexplained weight loss. ? Have night sweats. Get help right away if: ? You cough up blood. ? You have difficulty breathing. ? Your heartbeat is very fast. These symptoms may represent a serious problem that is an emergency. Do not wait to see if the symptoms will go away. Get medical help right away. Call your local emergency services (911 in the [place] Do not drive yourself to the hospital. Summary ? Coughing is a reflex that clears your throat and your airways. It is normal to cough occasionally, but a cough that happens with other symptoms or lasts a long time may be a sign of a condition that needs treatment. ? Take htrf-vpr-attsvhu and prescription medicines only as told by your health care provider. ? Always cover your mouth when you cough. ? Contact a health care provider if you have new symptoms or a cough that does not get better after 2?3 weeks or gets worse. This information is not intended to replace advice given to you by your health care provider. Make sure you discuss any questions you have with your health care provider. Document Revised: 04/14/2019 Document Reviewed: 04/14/2019 [employer] Patient Education ? 2021 [employer] Infectious Disease Upper Respiratory Infection, Adult An upper respiratory infection (URI) is a common viral infection of the nose, throat, and upper air passages that lead to the lungs. The most common type of URI is the common cold. URIs usually get better on their own, without medical treatment. What are the causes? A URI is caused by a virus. You may catch a virus by: ? Breathing in droplets from an infected person's cough or sneeze. ? Touching something that has been exposed to the virus (contaminated) and then touching your mouth, nose, or eyes. What increases the risk? You are more likely to get a URI if: ? You are very young or very old. ? It is patric or winter. ? You have close contact with others, such as at a daycare, school, or health care facility. ? You smoke. ? You have long-term (chronic) heart or lung disease. ? You have a weakened disease-fighting (immune) system. ? You have nasal allergies or asthma. ? You are experiencing a lot of stress. ? You work in an area that has poor air circulation. ? You have poor nutrition. What are the signs or symptoms? A URI usually involves some of the following symptoms: ? Runny or stuffy (congested) nose. ? Sneezing. ? Cough. ? Sore throat. ? Headache. ? Fatigue. ? Fever. ? (more content not included)... [facility] Clinical Note 07-15-2022 Note Date & Type Note Facility 07-15-2022 Note Patient Education Ma terials Follows: Tonsillitis Tonsillitis is an infection of the throat that causes the tonsils to become red, tender, and swollen. Tonsils are tissues in the back of your throat. Each tonsil has crevices (crypts). Tonsils normally work to protect the body from infection. What are the causes? Sudden (acute) tonsillitis may be caused by a virus or bacteria, including streptococcal bacteria. Long-lasting (chronic) tonsillitis occurs when the crypts of the tonsils become filled with pieces of food and bacteria, which makes it easy for the tonsils to become repeatedly infected. Tonsillitis can be spread from person to person (is contagious). It may be spread by inhaling droplets that are released with coughing or sneezing. You may also come into contact with viruses or bacteria on surfaces, such as cups or utensils. What are the signs or symptoms? Symptoms of this condition include: ? A sore throat. This may include trouble swallowing. ? White patches on the tonsils. ? Swollen tonsils. ? Fever. ? Headache. ? Tiredness. ? Loss of appetite. ? Snoring during sleep when you did not snore before. ? Small, foul-smelling, yellowish-white pieces of material (tonsilloliths) that you occasionally cough up or spit out. These can cause you to have bad breath. How is this diagnosed? This condition is diagnosed with a physical exam. Diagnosis can be confirmed with the results of lab tests, including a throat culture. How is this treated? Treatment for this condition depends on the cause, but usually focuses on treating the symptoms associated with it. Treatment may include: ? Medicines to relieve pain and manage fever. ? Steroid medicines to reduce swelling. ? Antibiotic medicines if the condition is caused by bacteria. If attacks of tonsillitis are severe and frequent, your health care provider may recommend surgery to remove the tonsils (tonsillectomy). Follow these instructions at home: Medicines ? Take mktp-jkz-wxihquz and prescription medicines only as told by your health care provider. ? If you were prescribed an antibiotic medicine, take it as told by your health care provider. Do not stop taking the antibiotic even if you start to feel better. Eating and drinking ? Drink enough fluid to keep your urine clear or pale yellow. ? While your throat is sore, eat soft or liquid foods, such as sherbet, soups, or instant breakfast drinks. ? Drink warm liquids. ? Eat frozen ice pops. General instructions ? Rest as much as possible and get plenty of sleep. ? Gargle with a salt-water mixture 3?4 times a day or as needed. ? To make a salt-water mixture, completely dissolve ?-1 tsp of salt in 1 cup of warm water. ? Do not swallow salt-water mixture. ? Wash your hands regularly with soap and water. If soap and water are not available, use hand jewelry facer. ? Do not share cups, bottles, or other utensils until your symptoms have gone away. ? Do not smoke. This can help your symptoms and prevent the infection from coming back. If you need help quitting, ask your health care provider. ? Keep all follow-up visits as told by your health care provider. This is important. Contact a health care provider if: ? You notice large, tender lumps in your neck that were not there before. ? You have a fever that does not go away after 2?3 days. ? You develop a rash. ? You cough up a green, yellow-brown, or bloody substance. ? You cannot swallow liquids or food for 24 hours. ? Only one of your tonsils is swollen. Get help right away if: ? You develop any new symptoms, such as vomiting, severe headache, stiff neck, chest pain, trouble breathing, or trouble swallowing. ? You have severe throat pain along with drooling or voice changes. ? You have severe pain that is not controlled with medicines. ? You cannot fully open your mouth. ? You develop redness, swelling, or severe pain anywhere in your neck. Summary ? Tonsillitis is an infection of the throat that causes the tonsils to become red, tender, and swollen. ? Tonsillitis may be caused by a virus or bacteria. ? Rest as much as possible. Get plenty of sleep. ? Get help right away if you develop any new symptoms, such as vomiting, severe headache, stiff neck, chest pain, or trouble breathing. This information is not intended to replace advice given to you by your health care provider. Make sure you discuss any questions you have with your health care provider. Document Revised: 06/21/2021 Document Reviewed: 03/10/2021 [employer] Patient Education ? 2021 [employer]. Immunology Hives Hives (urticaria) are itchy, red, swollen areas on the skin. Hives can appear on any part of the body. Hives often fade within 24 hours (acute hives). Sometimes, new hives appear after old ones fade and the cycle can continue for several days or weeks (chronic hives). Hives do not spread from person to person (are not contagious). Hives co (more content not included)... [facility] History and physical note 11-19-2019 Note Date & Type Note Facility 11-19-2019 Note [id number] [facility] Clinical Note 11-18-2019 Note Date & Type Note Facility 11-18-2019 Note Custom Cystoscopy with Stent Removal ? Voiding after the procedure: there may be some pain, burning, urgency, frequency and blood tinged urine following the procedure. These symptoms usually resolve within 2-5 days. Drink the amount of fluid it takes to keep the urine pink to yellow or clear in color. Drinking enough water and fluids will help to ease any discomfort after your procedure. ? If you are having problems that seem out of the ordinary, please call. ? If unable to contact your physician and you feel it is an emergency, go to the nearest emergency room or call 911 ? Diet ? you may resume your normal diet. ? Activity ? you may resume your normal activities ? Call if you have a fever over 100 degrees. [facility] Summary Purpose Family History No Family History Records FoundNo Family History Records FoundNo Family History Records FoundNo Family History Records Found Advance Directives No Advanced Directives Records FoundNo Advanced Directives Records FoundNo Advanced Directives Records FoundNo Advanced Directives Records Found Additional Source Comments INFORMATION SOURCE (unrecogn ized section and content) DATE CREATED AUTHOR 07/28/2020 [facility] DATE CREATED AUTHOR AUTHOR'S ORGANIZ ATION 03/18/2022 [facility] DATE CREATED AUTHOR AUTHOR'S ORGANIZ ATION 12/30/2022 [facility] DATE CREATED AUTHOR AUTHOR'S ORGANIZ ATION 04/20/2023 [facility] FOR RECORDS PERTAINING TO PATIENTS WHO ARE OR HAVE BEEN ENROLLED IN A CHEMICAL DEPENDENCY/SUBSTANCEABUSE PROGRAM, SOME INFORMATION MAY BE OMITTED. This clinical summary was aggregated from multiple sources. Caution should be exercised in using it in the provision of clinical care. This summary normalizes information from multiple sources, and as a consequence, information in this document may materially change the coding, format and clinical context of patient data. In addition, data may be omitted in some cases. CLINICAL DECISIONS SHOULD BE BASED ON THE PRIMARY CLINICAL RECORDS. [facility]. provides no warranty or guarantee of the accuracy or completeness of information in this document.
== END 2023-04-18 11:17 | disposition home or self-care (01) ==
LOC: LAB 11:16
PROVIDERS: Visit Provider Obstetrics & Gynecology
DX: R87.612 Low grade squamous intraepithelial lesion on cytologic smear of cervix (LGSIL) (principal)
CPT/HCPCS: 88305

== ENCOUNTER 2023-10-08 20:13 | Outpatient (REF) | payer OTHER, SELFPAY ==
--- OUTSIDE RECORDS SUMMARY | 2023-10-08 20:21 | XMS_ITS | CCD ---
Author Organization [facility] Providers Care Tax Services Manager Name Role Phone SARABJIT, DR AKERS Admitting Unavailable SARABJIT, DR AKERS Attending Unavailable MISC, DR BRIDGES Primary Care Unavailable SARABJIT, DR AKERS Consulting Unavailable ZIEBER, DR MADAN Briggs Consulting Unavailable SARABJIT, DR AKERS Admitting Unavailable SARABJIT, DR AKERS Attending Unavailable MISC, DR BRIDGES Primary Care Unavailable SARABJIT, DR AKERS Consulting Unavailable Blunt, Jose M Attending Unavailable Blunt, Jose M Primary Care Unavailable VELASQUEZ Guerrero Admitting Unavailable VELASQUEZ Guerrero Attending Unavailable Blunt, Jose M Primary Care Unavailable Nora PA, Hadley R. Admitting Unavaila ble Hawley PA, Hadley RManuel Attending Unavaila ble Blunt, Jose M Primary Care Unavailable Hawley PA, Hadley R. Admitting Unavaila ble Hawley PA, Hadley R. Attending Unavaila ble Blunt, Jose M Primary [...] Unavailable Blunt, Jose M Primary Care Unavailable SARABJITOSWALD Attending Unavailable SARABJIT, OSWALD Attending Unavailable Allergies Allergy Classification Reported Allergen(s) Allergy Type Date of Onset Reaction(s) Facility (2 sources) Levamisole; Translations: [Phenergan] Drug Allergy 12-12-2016 [facility] Repository (1 source) Promethazine; Translations: [promethazine] Drug Allergy [facility] Repository Problems Problem Classification Problem Date [...] Coding Summaryon 12-28-2022 Coding Summary HTMLBase 64 GqdxhngwBPb2xJc+PGhlY WQ+KH0AWBGdU53maVStuS 9vQ3NBTWmVWqynXYDKDIl XImCqgkMxFC1zuLFfGWIz IC8+DS5bBABxPclayVOzp 6Z2eKL9W12kgd2hGOzkxK F6ZWYwXqFrrnmhj5ofxMz 6IDcuNmluOyBt XDTxaC13MAQ3rT52Cg54g GJfsHRpb1alxOu8HsWaUM NtKWV0dVqdDKnrj1FhOUH zU10niKPqz8N6 HUWztYsjdMUlXjXeoXM6s E0jAFkslxmdw8yopwprFp c6ou75eCKra3G4lLG3V9L rfmM8CXNwbTCo HgcylIZOxU7wewzci1ktp wunTiLuXOOeURe1NAp4MN VkcRqyQtSeNV80PKZ2LAS suvXhH0YxUNLz kLqaYzI8d3G5Bg4QE4OUC itpS1UXGSBWTDzbtSC+PC 14yv46R5WeSfhfVui9WAI zYYU6fXC8bS2y MVQlTUvqc0I8nTD6T2Ycd zArsq7wv8tpOYTgQTmiG2 1chYVnk2M7ZUZwcJV4CUU dtTblIdGvkQ30 Oyc+UVKtgHent7QoZfryc 9ltn0nnvFz5XpyrCPRnrm EaeRxnGGN3v4JyJe4rECW snQX0dUS5oU3l FwPcKsC9KPwnQ096VeVqz POwJyqxO07gC0RwnJF+PH FjNck4MYVrpIzdDZ8pF1I hZGRpbmctbGVm dWpjEM3aQEFtkvxfBEHvw Q7aBIQsI4r1NzJiRcR5JW kbW6MwFVCqjjaeUz71gD7 gXoNeBkV0MBwn H6VvenS6JIRwgVHnXSssE QU4Z19xf9R5JQMiJBTqXZ Y9gAJ6hJ2riRcqkreyzQN mdDsgdmVydGlj KMdnLQvqG362IXIhsVlxO kNvZGluZyBEYXRlOiAgMD kvMjEvMjAyMzwvdGQ+PHR wNMP2xAdpLABj jYVoRVysZr9znWmupFchR H3kTGKhmyyxZZLruT1cQL IvgVNadIkvMM5dYBSzyiu rr157HrRqNMY2 OCHnmNXuV8JuoK3pAwZhM LAeKPNpZ7VxiMJwRFqiF0 18BXztUvW3FFEjiuEeM8N sLWFsaWduOiB0 h4Z3Ds2Cd8HnlewxA4Awf JJpXgDrZuiwZEg8I1EwPl wvdHI+OZ63ZNXuLR52DIi 7LVK0uYllFWab KJBvN3TktS5bSmVqKXWcV GRkOyc+PHRhYmxlIHdpZH RoPScxMDAlJyBzdHlsZT0 wEb0lKHTwDZZe qPgsiZNiOvQkk0wgUXYeW AwoOB6btVqtP5NjrGH1NY Nsw9a9Mf79U87mX0TjcJG +DNNqiTD3jHI0 iK5rQuPvDsG5TXewV722E fTzfEBsWmqqf4ggj7wymP q8VlR9DHUaulAkoXogVFJ 8f8CfTn49S53a IHdpZHRoPSIxNSUiIHZhb Bldpc3reF9gEz4+PGNvbC H0dFR4dL4dZsScUiU8ARm lL061MoJsrJQb Qdxin3pad9rraIf7OsLeN UStdyUvlYgwRYA9i6ZuXl 03N2WmbIpaz3QtQxo8ed4 9xMNqg3S8lJV3 V4XdBUPvrbqqfNYrhEuhR B0bCNFejzdmLFQvtX2lXP UyG9e6PqJoNqI8JLpiX6T vowD0KNUkgDFv FNFtbXCYcR3azhtxl7tan wczHiVfQUIiAZx8SCx7CV BtmKyvXjAxXHZ3JnG3OXR 0xCIitO7bvBce xaelhS8yAho+UPE8uYDtx ZXHJN2mKaghlOT+PHRkIH Q8jSekONjaAMYhxA4xNKX nY6i2SmKdUnJ6 GBrkR1NwqmV3WRBdtLOxP EGnqLGCnD7ogewdi7vtso guKjUsGCAsRNl7ZWw3RVQ saWduOiBsZWZ0 EpU0YOX0nCXcwF0ziXhvp nszeD3hTmv+QmlydGggRG T3SSq8A7CsLod7OGWyyZq dBK7iqOOoEUop Ca6mvPyssNwnRD6aXOAft orvf159AzXua3xcSMFxoK ZoGVsxOKZ9K59lg3C4KEE pGYByFFA1gOS0 yT2fzAfqdbygtFLaeCmuj rUopIpiYTbqRRhoM739OF SmeVdtTqOkMAr1U2GaNrs 1XYYuaShgXH8j mHKpQNktRl3yrCfkqTonT L1dBQTbsyvno414SuXbn2 ioOZEerNJbPWmpOBD5N55 zj0O6NRRfNWDm FBE0cLC5mY3hgHusxmsxj GVmdDsgdmVydGljYWwtYW qsJ295OHPhxYowEvNdmTj 0B4IjBus2DODu vMylNO5ssEOpYIkqDr7iq VsecWcbTA2eQHSbbvwqn8 45RpYny0kqWRApvBQcZJf fHCZ9P89tw6R7 PALsZBMiVAM7cRO8uJ9jw GlnbjogbGVmdDsgdmVydG wkHOieWZimJ110HSJgeYr nPlBhdGllbnQg CXdkSCa3Z2LrEdkdkDF+P H98JVNfWM59iMAlwEUbr9 plpTb5ZqVoHQCjJWN3wIe iBFdyk8QtAUDh U91dlPWua5G4RLKurTzhk YZgIqFdsTI1nN9bQZlkfm ehy0mbzurcCgaaq0arte9 4cT41I25dTBpk ZHRoPSIzMCUiIHZhbGlnb c4bzI6tJn7+RVKieJQ9rP N5qV0tOIMjDvC4ENnbE75 9InRvcCIvPjxj f1pxx6izjKz8TaP5YQHmj vIqyQvnDTX5q2JaFp14W7 9sIHdpZHRoPSIyMCUiIHZ dvCxulx3zdT5e Ii8+TBKckKW1gKQ4uO6nG tMjZdR4EYwqF821WoTawO ClUeyhN06iP6KulVA+PHR bUym1NKLrqUhg TP0joJTkQLfoLr2uAOU1S yTdHvFeXDjoI4XyHTQbgi vgcpdlxEL1TARcMZFocB1 4Jh7msSehTWXa gXFAvG9kxowpt7fqkpmaW iEaWDIfVPn8PIs9QWQcaG ldCoLmTIH8PhH2OYF4pPI taP7csExymlmt aW7zO1KyNAEpkqwfQp83y L9dMuCaHhJ1POknBzf+RU GPU80FCsvjDjjCW2qBRKL MKnSLUL65XR98 bQFtv6V5bXO9U2KlGPHyq fzzeooxvCR7UVVbIFQpiA 68iKUqSPdvAw4ub7O3n10 7SLKoAYUtdO35 Ne6bsHcfZHXxcUXBvH1ox etmy6uxwwosTmNlUGTxAV y5BQr6XZHcpCxcUvUyRSH 6ZyV7OUW0sMIg zQ8dkMutjycvaH0sWxh+M PEhQZEaVCn3QAsamPF+PH KqIZL2sSgfAAuwXJBenK6 zFAGbH3i5LtBt BaW6KMsdN6HyHYXwyjjoH f68vF3lOeKrJnX6KYluS1 SeyoB7QCYvoAInOTmpXGH 4O43mf6R4TMMy ORYaFHD2eBY0uM1ceNchg jogbGVmdDsgdmVydGljYW mlZMwuV710PYOzxNgoBlH 7MVerIZHtDR57 UD40uFXiv8D3uPK3T6RiU AHmiqglcuwamLP5LSDvPV KovZ66tLJjGPdrEm4dk1T 7u671BCRrUNMp sQ23Iq5ahBnlCQDevGWZx U6rbkiua0zgtzphQhNdQU LyBKp5QDz9LTNqbSejLwU dNUY8DbB7JLT7 sSBumI7ksCpkgyoolU1yH yc+ZoAGXSrEJX88EV29rA Egf4K2eLV8V2GcGXKxfhd egvkqrUD7LLKr TEPnuO85aPSfCHemZc1ck 9I9z058JEXwNLZryE12Jj 2imKcoDKJycQHPlW8qcuo ts6toybjuMoTm FOUlAXg5UWe8EPVtcJrmB jMkTTG8OqA4MME8rFVygE 1ccIynehokcT0aLjt+T1A 8R5TgKkbetRG+ ET81HNPlWQ27qDYgyCFyj 2pgtXu0GxSgZOOsXDJ7dZ usSJerl0GgNWRjL31hzAN mj6B7WBEvkSeq yFKrJbMqgJN9aG7hIWzsb wrda2jrmewbChtps0aapk 42wD80U21zWRpnGYWuCPU zMCUiIHZhbGln ix8kzE5hQk9+DHHyiKZ9o BU1xV4nTlTvDsE8TTmyQ9 69EbVjtYGzQlfex6mbd2c owDg7IiIeLIRg wxOyvPxqYWV9d2TcIk54O 29sIHdpZHRoPSIyMCUiIH MwrAtnxi7gvY1qSf1+PC9 mj1ydiv61nG92 dHI+UDPqDSK3rVscGMrsC JSmjL6iDFgoSgY0EVWzBd JhiN28tOBzFNygZi6lwEk hbCtqPT3gNIXn nzfgx098IgGfo1yaBHCkh FOmRWiqIZC0O83cn8S0BD OrYQPoIZE2zZB7dS2wsBi nbjogbGVmdDsg jpFrrTknTVwdZZsbN379J BTicUdtNuHqbOZeC4gucm MHBT0jLkpqpGO+PHRkIHN 0eWxlPSdwYWRk jM6xHNDrQ1w6JkJqEuG7P VjkQ8BiwjM0TWAhxMSvMO GhyNGOqA8weswbu9drdxg gIzAwMDAwMDt0 AGd1JLSfcApbNeCfASQ3L vH7ESE4yDUogY2rtKnlhf wqhR0zMkh+RklOOjwvdGQ +GAEoIFU1lLcj TJxzTUGzoC8qBTVsT9q7E hOvGqQ8IZdxP4NjpeR8KS AhjVYgXUOqeCJAwI7etll fa8cxavvsJbVv APGxGTu9KJn7RGIvrXmhK oNnQGE1JhN6RXH1zZWywK 9inMxprspnyH9cQeu+TVJ OOjwvdGQ+PHRk VCF7eXvgCOwfKDEnlB7eG ZOaY1b0YvEpZeT4BBnkW5 PdupP0KQJheCLtYTAahWS PhC3zjqmyf8wy qwpkPjYbNEMnWQg3QBd0O WFpvNklRnJdBGT9FeM2DI I4fAFtcU5loScyzsppvA1 wOyc+HNO6UNW9 NR41MY07N0NfVypotJWol +PHRhYmxlIHdpZHRoPS icGCNiRxYnhUjyID4oWh4 yZGVyLWNvbGxh cHN (more content not included)... Normal [facility] C Throaton 12-22-2022 C Throat Ordered by Discern. Normal throat osmar isolated No pathogens isolated Normal [facility] Comment on above: Performed By: #### [id number] ####[facility] (DEFAULT)[address] [place] [address] ED Clinical Summaryon 2022 ED Clinical Summary [facility] ? Urgent Care [address] [place] [id number] Clinical Summary PERSON INFORMATION Name: MARTINA PACK Age: 37 Years Sex: FEMALE : 1985 MRN: Acct#: Visit Reason: Throat pain - Adult; CONGESTION, SORE THROAT, COUGH Arrival: 12/20/2022 09:57:20 Discharge: 12/20/2022 11:04:00 LOS: 000 01:07 Check In: 12/20/2022 09:57:20 Checkout: 12/20/2022 11:04:00 [facility] [id number] PCP: Jose Larson MD PROVIDER INFORMATION Provider Role Assigned Unassigned Mindy Bailey VIDEO GAME ANIMATOR Nurse 12/20/2022 10:00:43 Maria Guadalupe Guerrero PA-C [...] Follow-Up: With: Address: When: Jose Larson MD [facility] [id number] [address] DIAGNOSIS: 1:Viral pharyngitis Patient Understands: Comment: Normal [facility] ED Patient Summaryon 023 ED Patient Summary [facility] ? Urgent Care [address] [place] [address] [id number] PATIENT DISCHARGE INSTRUCTIONS Patient Information Name: MARTINA PACK Age: 37 Years Date of : 1985 [facility]: [id number] Reason For Visit: Throat pain - Adult; CONGESTION, SORE THROAT, COUGH Arrival Time: 12/20/2022 09:57:20 Primary Care Physician: Jose Larson MD Attending Physician: Maria Guadalupe Guerrero PA-C Comment: Patient Education With: Address: When: Jose Larson MD [facility] [id number] [address] Sore Throat A sore throat is pain, [...] these instructions at home: Medicines ? Take skap-crt-wtndooc and prescription medicines only as told by [...] and water are not available, use hand engineer byproduct. Contact a health care provider if: ? [...] can cause a sore throat. ? Take gcfs-tyw-blpftvx medicines only as told by your health [...] provider. Document Revised: 06/22/2021 Document Reviewed: 06/22/2021 [employer] Patient Education ? 2022 [employer] Interactive. Medication Information: The exam and treatment you received today in the [facility] Emergency Department were for an urgent problem and are not intended as complete care. It is important for you to follow up with a doctor, nurse practitioner, or physician?s or assistant for ongoing care. If your symptoms become [...] lab cultu (more content not included)... Normal [facility] Strep Aon 12-20-2022 Strep procedure control Pass Normal [facility] Comment on above: Performed By: #### 4 [id number] ####[facility] (DEFAULT)[address] [place] [address] Streptococcus A Negative Normal Negative [facility] Comment on above: Performed By: #### 4 [id number] ####[facility] (DEFAULT)[address] [place] [address] Coding Summaryon 08-11-2022 Coding Summary [facility] 64 NdmroewkDVh0lMb+PGhlY WQ+HX6IGVZqB91cvBEnaB 0TW1uTCL0ZSBTZHNNSRR9 HBC3uhVM1UQdfY3HvvvWb IublzCWjXQ79BKb7LKU7f RjfOZasiC8jfADzQ7w1Kr AhFY08oD32SEuhCCHzSqJ 3LjZpbjsgbWFy S6peSdRnnXKsBzk+PHRhY mxlIHdpZHRoPScxMDAlJy CmbGroZJ9iUr3hAQKkVRY vbGxhcHNlOiBj c7vlAWOvQJwwVJ0alXfjK 0HdvWH7WBDrr8s3Df25uS I+YEDoOMQ3gBmoEZppa13 8EqWww2srZGI4 yOFtTRxeJSZ4H44wf7N3J HLiZBSuWJE8kES0oB1egM mmomccW5WdtUOhJpO9YUM 3aWYphX0hdZzu ebgxrG7hMoi+G39KXD8ZD SBEKP8AVxb0F6BdJpssjC I+GJ01ZTRzQB43jRCryPB ij8anrSb5JqCu DDMtQQM0uBvjKWgfg7YxT WWsX58psPKrx7W4GVUqbB lvpCRoXpQjmRB7qP0zBBi bwqflc6csgudn Xtkih0rnww73iW52T03jH FeqVNFtNNY3OCCvQIXlwX cdaz7cfN2gCs6+QFsfx7l dm3ugvMd5UsCf PILukwBmxZsfZPX7m9IaB e88I2YrhMryn2FpFvd4dq 16yPVsw7P1nUO5KDctBVA qbE2rGWlkUpT2 YZSgXxAjnT79tEKlBNszY m5edAofbEqoPD9aYSBuvr nnXGUtaX1zNSGolWKwaBd zIS6bCAQkvifl k258RoXpAWB2TEPffXWsC 3LoyS2eXvHjBAPjUQHkP1 QndLJyQVesU623JNgmQyI 3FNHlxrGtQ2Oo ZCWqnLrgAwE2y1G7Ni3Cd 6JwojpnYBH3WBaqMDV7Tf N5JgRzPlA1L9QbBus5STW duGzjBU1fY0Lq SYBfpvwbplkvaZN3JFPwD TLgwJ04tHVuGMbyJr4fn8 X8w758NVMwZIAfuK60Ix9 udDogMTBwdCBU nV9biqiut6umopxyCfPuO SDjHJr8LJg4CEHyeAasAh NnAZL8ZkR1ZUP0vDMpbJ4 mxNmknmpcgW1b Oyc+Z69nbZ1rIWQ3OWQ2r vqqTXTlknJuDL36XT15H3 RyPjwvdGFibGU+PGRpdiB ucRwcMV5rFuHt c7ugx1HvRGjoS7OrNIUtP OvdPyb5STYlRFU7ySV0xB 7vOUAmAIiiv1O5jQG5P5Y guoZupw6ij2dm HAJdSTpmO81ybXQlj1Y2Z KAjhAA9IAWdnIazHkPsvL 93Oyc+YGLfyPzao3QwBts ph1jrl6kofDt5 MqAoKQJwtwVazZoeISD4p 6EiOw41R42dBTyfXAVbGR TpHDAlSIFlaLbndd7ykI9 wIi8+PGNvbCB3 aIP4nD3cABMwAyQ0FEdtR 338StStdECdMsdjp2enj1 adaXk3TdXkOJDjdwIpeUo jMIL2z6KbSq37 N02jGJntHGIfUMMhTPNvS EYssLjehq7llR5qKn2+PC 2zg4kpyn93zU19lPF+PHR dJWH7uLpzJQrm BGNneM8uDJowUcW9PGYwM fEbpZ55oIMkMSzpIn7rdM etdPuiTL1rDLGtlbbpu74 9JiQnx0lzLUUw xUBuUFhuAQW7U14my6N1K LThDALdLPA1fYQ0rU5hiP lnbjogbGVmdDsgdmVydGl nICgiSCuzU302 IHRvcDsnPlBhdGllbnQgT iKkGCi2R4QoNml8WCRqdV fkMU6uzXOuSRxxAj5jeIi zfUxtRK8uWAHi hlnhb089EiHel2raYTLlm BCfPDklESQ4C91rl7I4JI BsQPFaPDU5nPH0gS4plEg nbjogbGVmdDsg bqBjvWjhJAqwYNawJ325C HRvcDsnPkJpcnRoIERhdG X0RD97KH23oWIvo2X8hRQ 9S5UzVTLegvmn ngyidCG1KPQbAJJqsC95H h7cuNjqLa1rVLQvOWL3UK GsqFQbS5DesZ9gGoZqXJQ xLGSxR7MgtKXo SYahL499YYurNxL5KTQpl bAcF1SqFHQizTtfUsC3w4 A9Ce3RK6P0IZ93ND29vLF nl4J8hHD1Y0Sa FXXhgzxkwlvqvIB8HJXyR KAtxK27Tm4gjMgsFm4gAW ScUZA0MPAacUBgS9DlnZ9 yOiAjMDAwMDAw Q3AiyDBjYFipB051BXptL xG2XLCvxeJlQ8WuTWGbiW beDeJ3d2M9Bm0CRDx5AU0 0MP73hEVsb8H3 eYX7U2PnWTTxjpwhamita BV7RZRtVZFqjS72Qm1cuD crZs0eUVDuFPQ1LHOekGK lZ1YylF4dTmPg YZBpBAWzL7KhaGQtBGmmC 779NFbzWqE0XPLvitUrF4 NdUYQlpOhrUwQ5y1J3Ep1 MQUOsQQ73YML5 nRR9LR45MU20Q7CoPwwon GFibGU+PHRhYmxlIHdpZH RoPScxMDAlJyBzdHlsZT0 cTb4oBMEbPRBm bJlzoJPbXeIyi1caMYJdB JnlLG9puVzxC2KotQX0QH Mim2n8Ez27S58yL0PlzBD +IUGswUL4oUC0 fI1eIvXfQxE5XJqyA154Y mBobDAmZtuet3qep7zglK o5WdH3EEMhqnMxjYggMMW 1f7MiKy99B74z IHdpZHRoPSIxNSUiIHZhb Zqwra8kkZ9nEe5+PGNvbC L3bGY6uB6yPtEmHvG1EPl gS592AwBheLOa Kqkuc9zdj7aouSt6UqSeN YZeuwCfcQbwIRC2t5YtNj 38S7BvjJzky6OcChr9zq5 3kZUok8Q9aZY7 E8LlRUEomuxrwFMfgNyxW A1qUKBccereKJGsvM1eBJ WhL8x8AbJdLtQ5EWnsH9S ulrI4VLFjnWRc OPbzMQM2O92sl4M7EVLmX QCrDNI2dYN5iQ2vuVsnrn ogbGVmdDsgdmVydGljYWw uJTygP336KPRv gEnsIEKiaM7dEFHsiTBxr PeuXI2kVORghivxCkJPOL 5HBAYdOI3LW22OPUCEHB6 FRTwvdGQ+PHRk OPU1oPkzVVmhRAQkdH9dW UIgL3d9TiXdFlE0HHjcA9 OhCCAlvcguJs44yC4bYfZ zZsK6TGbvO2Je unQ5EHAcfBOgWFnlISL2T 13es1D1JPZiSPPsJAO8cF V6eL7dvUqdmrjqyKEfrAf gdmVydGljYWwt JPedC309TEJiiWpsNcSuE aC5UzK7JLU2L3GlIzo8GG WltEccEI9kuBWjBTunGv6 joPvnbRtzXG8s KGUauoblZNKmsO6yXYQzz KWtzIjdJV6nZKBvhzggm3 32PkMaXLP7XWDafZUlF9J qdG8sUzVhXRIs EWMuW3PgrNWrYFimX905D NkqMzB9HLLgmkDqA8AzCO OcwAlePbI1q5N9Ua5lLJI ZZWFyczwvdGQ+ YCJwOLI4bPanJXdrYHEzi Q5oEVJdI2c9WzFlYjE5YD emF1TjOWHlgdhyMy33wK7 cGyYlCoI3QSsv B3RhufJ2NJWfgFVgJNmwL AA0V22wo3V1CUVuXYQlFB X2dTD0vN7kpDdobkdtbJN mdDsgdmVydGlj PJlhOCwoW872JXUeiItwP kZFTUFMRTwvdGQ+PHRkIH H0aKkgZVqxUDApqX7oRLM aE7i4BiPvKlB4 SOzpJ4GlCZCovkbbSo28j E7wTlIjKaO8XTstE6Pxlm H9FJYcmNOoWLzjACR0R98 oy8K8QFRbYXKc EKY9lDV3pF8hnFcleqqov GVmdDsgdmVydGljYWwtYW stL749TKIsbKfsCqTkEAW eLE8dsShnaFM+ NE47ts14V4FyVlgpCgh1H ZEcFZY0mXF7mV0cTOKrSF evw3O3wXC3N9FyagCnth3 bl7tkZAQjWFvk B53acURvp2X4AARwtES0K DVkdUkrRbKtcM98Lhy+PG CjtVzoq0McBpczs8sqb0e ejPc0LcLfREQd qfLaoLmjQGL0r6GrUv26H 29sIHdpZHRoPSIzMCUiIH NtsOomzz4gaW5eIq1+PGN ltXM4xSE9mY0h FsXnMeX2BOnvH969OgByn XJjXqqdr5nky9ogsOg7Xr QeGIGochZssRzsVJA0e7L sNk46O9XgmBky s9LmNqw6xb53jJRwq7Y5g PM0X4JcWZYarlvvoUNklY pmVM8gMIMeklvqNTHfgM2 sLVRiZ9m9VeIi ByD8IEfnM0HnuvH4HPXdb CBfFGDsvJSXzD5qthusl6 iadlyjCqOdTSKyYQp2GYc 0LWFsaWduOiBs PTV7IeN6NGJ4uVEnzD9lk CeuofgonE4kHul+UGh5c2 norEEbBE7ywHP9SH14HT6 9zZLuw8L3fUV4 A4FlBMVwiqwxqdhgmMR6C DFmLENxcD75Ec6zcWhjXz 4uUAZlBGO6QOEndTUiB8O siN6hGgMsLRKq VOMxE6BzbNWgGZzoG229O JrqQvV3RCZakmKvF9OjWS UhnHouCoM5b3V7Cq0VZI9 4UR01TO87cEUy t1X5xKK3F1QuBFFmfyygn hwwqPQ7GCWoMVQhqH29Ca 2mtZyiZp4cYCWkWTP3BUD tpJBbZ5MyfM3a ObNbLAFtFEQrR8OgcKOjX MxbO345SNckSsQ0LDJris DwL8VhCWJvvHzyAiD9d9G 1Np6UDe92HA89 DM31tUZiz2I1mAJ7V0MnD BBnlxglbcnhpRV0TRRbYT FauJ37Ct7wzJgtKs4bBPE wZAL5NWQalJGe L7PhpC3zVaKaHSBdRNVcQ 7UwfRUkMNpbD928MQzsBt J5BQJokkUyY2WhUVIlsSb fNtZ6n5N9Lo2W KIpctcl2R8BiTzrugUK+P G07LUDeVH35bKQcjIZfq0 intBn1UrIwQSOuHHW9fRl gEJmgj5CvEUNb Y29 (more content not included)... [facility] .Auto Diff 108-06-2022 Auto [place] % 4 % Normal -12 [facility] Comment on above: Performed By: #### 2 797248, [id number], 0150232692, 9093733, 57183646, 4923835156, 4897759 ####[facility] (DEFAULT)[address] [place] [address] Baso Abs# 0.0 x10 Normal 0.0-0.2 [facility] Comment on above: Performed By: #### 2 073168, 6050251647, 5433864461, 9738324, 80211757, 9443242708, 0843396 ####[facility] (DEFAULT)[address] [place] [address] Basophils/100 WBC (Bld) 0.4 % Normal 0.2-2.0 [facility] Comment on above: Performed By: #### 2 244659, 4860395767, 1593605852, 7350033, 57527547, 6129628269, 8895670 ####[facility] (DEFAULT)[address] [place] [address] Eos Abs# 0.0 x10 Normal 0.0-0.4 [facility] Comment on above: Performed By: #### 2 363996, 8679628798, 5313962208, 0087258, 31685263, 6054831231, 8373403 ####[facility] (DEFAULT)[address] [place] [address] Eosinophils/100 WBC (Bld) 0.6 % Low 0.9-4.0 [facility] Comment on above: Performed By: #### 2 799720, 2381062723, 1820475889, 9814280, 61958673, 3332638153, 4805016 ####[facility] (DEFAULT)[address] [place] [address] Lymph Abs# 0.9 x10 Low 1.3-2.9 [facility] Comment on above: Performed By: #### 2 998391, 6782257999, 6720363064, 7506755, 63406627, 9899614569, 1216791 ####[facility] (DEFAULT)[address] [place] [address] Lymphocytes/100 WBC (Bld) 11 % Low 14-48 [facility] Comment on above: Performed By: #### 2 133864, 8443692249, 2506644272, 0483582, 04130096, 5178821291, 2830553 ####[facility] (DEFAULT)[address] [place] [address] [place] Abs# 0.3 x10 Normal 0.0-0.8 [facility] Comment on above: Performed By: #### 2 748930, 1981052786, 6479868491, 5006598, 11370557, 4315162149, 0540488 ####[facility] (DEFAULT)[address] [place] [address] Neut Abs# 6.9 x10 Normal 1.5-9.2 [facility] Comment on above: Performed By: #### 2 045416, 7699729252, 8237046993, 3969362, 36757370, 8287658537, 9530127 ####[facility] (DEFAULT)[address] [place] [address] Neutrophils/100 WBC (Bld) 84 % Normal 44-88 [facility] Comment on above: Performed By: #### 2 151476, 6572819304, 2597362100, 2911297, 98772983, 6371788170, 6491323 ####[facility] (DEFAULT)[address] [place] [address] CBC w/ Auto Diffon 3 Erythrocyte distribution width (RBC) [Ratio] 12.9 % Normal 11.5-15.0 [facility] Comment on above: Performed By: #### 2 850751, 2634916254, 2841354725, 1318472, 50242634, 8223332033, 6820298 #### [facility] (DEFAULT) [address] [place] [address] Hematocrit (Bld) [Volume fraction] 39.8 % Normal 33.7-40.4 [facility] Comment on above: Performed By: #### 2 984685, 4401920471, 6014058147, 2125298, 28405723, 2408928386, 4948392 #### [facility] (DEFAULT) [address] [place] [address] Hemoglobin (Bld) [Mass/Vol] 13.3 g/dL Normal 11.3-15.9 [facility] Comment on above: Performed By: #### 2 536260, 5990401734, 8345663331, 8504594, 44512331, 1508473712, 2971441 #### [facility] (DEFAULT) [address] [place] [address] Man Diff? Auto Invalid Interpretation Code [facility] Comment on above: Performed By: #### 2 679561, 4331419413, 5329425805, 9686903, 18819208, 1640506223, 7559963 #### [facility] (DEFAULT) [address] [place] [address] MCH (RBC) [Entitic mass] 29 pg Normal 24-34 [facility] Comment on above: Performed By: #### 2 014438, 4065146935, 0273216912, 5921516, 74868044, 6610382210, 3524609 #### [facility] (DEFAULT) [address] [place] [address] MCHC (RBC) [Mass/Vol] 33 g/dL Normal 26-37 [facility] Comment on above: Performed By: #### 2 647879, 2589024739, 9713928443, 0707669, 37976308, 4726352957, 7076926 #### [facility] (DEFAULT) [address] [place] [address]643 MCV (RBC) [Entitic vol] 87 fL Normal 81-100 [facility] Comment on above: Performed By: #### 2 160947, 9738444820, 4419032450, 1920354, 02688977, 8646480195, 2999122 #### [facility] (DEFAULT) [address] [place] [address] 00276 Platelet 289 x10 Normal 138-427 [facility] Comment on above: Performed By: #### 2 048473, 5318430343, 5656845475, 9418070, 89000212, 5839409340, 8329728 #### [facility] (DEFAULT) [address] [place] [address] Platelet mean volume (Bld) [Entitic vol] 8.6 fL Normal 6.3-10.2 [facility] Comment on above: Performed By: #### 2 196580, 0310176240, 2365547813, 9220380, 23711525, 1304134538, 2951083 #### [facility] (DEFAULT) [address] [place] [address] RBC 4.55 x10 Normal 3.70-5.30 [facility] Comment on above: Performed By: #### 2 601931, 7691427963, 8310843649, 8023457, 87217581, 9804651515, 3431961 #### [facility] (DEFAULT) [address] [place] [address] 72816 WBC 8.2 x10 Normal 3.5-10.5 [facility] Comment on above: Performed By: #### 2 783973, 0833539265, 1196721573, 8649118, 10653424, 4691692877, 8522328 #### [facility] (DEFAULT) [address] [place] [address] 07876 CMP [place] 08-06-2022 Breakpoint Chem Normal [facility] Comment on above: Performed By: #### 2 805894, 6078903883, 1752324689, 5637946, 39641482, 1682511205, 9983355 ####[facility] (DEFAULT)[address] [place] [address] eGFR Non AA >60 Invalid Interpretation Code [facility] Comment on above: Performed By: #### 2 832618, 3820746826, 9869156769, 9464494, 20223623, 6167282222, 6411568 ####[facility] (DEFAULT)[address] [place] [address] 64248 eGFR AA >60 Invalid Interpretation Code [facility] Comment on above: Performed By: #### 2 710277, 6147478921, 9475948961, 4091499, 97760431, 2635570191, 9718213 ####[facility] (DEFAULT)[address] [place] [address] 37082 Albumin [Mass/Vol] 3.8 g/dL Normal 3.5-5.0 [facility] Comment on above: Performed By: #### 2 553587, 3025148830, 4467875134, 1644353, 47673695, 1721126138, 6985694 ####[facility] (DEFAULT)[address] [place] [address] 76074 Albumin/Globulin [Mass ratio] 1.0 {ratio} Low 1.4-2.6 [facility] Comment on above: Performed By: #### 2 109447, 4133549499, 0317048011, 9009208, 91344421, 0232956600, 2273432 ####[facility] (DEFAULT)[address] [place] [address] 78428 Alk Phos 38 IU/L Normal 32-91 [facility] Comment on above: Performed By: #### 2 534477, 1430729860, 7114790914, 4978821, 45966227, 4460048058, 5180962 ####[facility] (DEFAULT)[address] [place] [address] 51759 ALT [Catalytic activity/Vol] 43.0 U/L Normal 14.0-54.0 [facility] Comment on above: Performed By: #### 2 247198, 6278465387, 9969115341, 0655782, 71837396, 1992550353, 9399069 ####[facility] (DEFAULT)[address] [place] [address] 66695 Anion gap [Moles/Vol] 15.3 mmol/L Normal 5.0-19.0 [facility] Comment on above: Performed By: #### 2 120984, 3710326885, 3937584645, 1713844, 45693500, 3805061145, 5489697 ####[facility] (DEFAULT)[address] [place] [address] 89579 AST [Catalytic activity/Vol] 42 U/L High 15-41 [facility] Comment on above: Performed By: #### 2 479617, 6153780470, 7186355894, 9108519, 92931111, 0185098654, 5556418 ####[facility] (DEFAULT)[address] [place] [address] 59558 Bili Total 0.9 mg/dL Normal 0.3-1.2 [facility] Comment on above: Performed By: #### 2 052220, 0847506933, 6385956116, 6428507, 34732070, 9271325289, 5397881 ####[facility] (DEFAULT)[address] [place] [address] 90966 Calcium [Mass/Vol] 9.1 mg/dL Normal 8.9-10.3 [facility] Comment on above: Performed By: #### 2 834190, 5511012012, 6742588790, 9573525, 37074598, 9611460228, 2211325 ####[facility] (DEFAULT)[address] [place] [address] 57128 Chloride [Moles/Vol] 106 mmol/L Normal 101-111 [facility] Comment on above: Performed By: #### 2 015950, 7894628200, 0105677970, 2824492, 67578212, 2601953035, 6301319 ####[facility] (DEFAULT)[address] [place] [address] 10270 CO2 [Moles/Vol] 21 mmol/L Normal 21-32 [facility] Comment on above: Performed By: #### 2 766688, 8147868889, 0111833192, 3569092, 75348817, 9676759003, 5211356 ####[facility] (DEFAULT)[address] [place] [address] 18833 Creatinine [Mass/Vol] 0.66 mg/dL Normal 0.60-1.30 [facility] Comment on above: Performed By: #### 2 861359, 2391880328, 7447155515, 7247660, 11671115, 4694619747, 1201053 ####[facility] (DEFAULT)[address] [place] [address] 56671 Globulin (S) [Mass/Vol] 3.8 g/dL Normal 1.5-4.3 [facility] Comment on above: Performed By: #### 2 132410, [id number], [id number], 4675742, 67086449, [id number], 0497800 ####[facility] (DEFAULT)[address] [place] [address] 36076 Glucose [Mass/Vol] 96.0 mg/dL Normal 74.0-118.0 [facility] Comment on above: Performed By: #### 2 852719, [id number], [id number], 4324655, 11274840, [id number], 4274719 ####[facility] (DEFAULT)[address] [place] [address] 36890 Osmolality 278 mOsm/L Invalid Interpretation Code [facility] Comment on above: Performed By: #### 2 059491, [id number], [id number], 1991782, 85000927, [id number], 6389099 ####[facility] (DEFAULT)[address] [place] [address] 21458 Potassium [Moles/Vol] 3.3 mmol/L Low 3.6-5.1 [facility] Comment on above: Performed By: #### 2 309546, [id number], [id number], 8132885, 87298371, [id number], 0497146 ####[facility] (DEFAULT)[address] [place] [address] 72307 Protein [Mass/Vol] 7.6 g/dL Normal 6.5-8.1 [facility] Comment on above: Performed By: #### 2 574123, [id number], [id number], 8389496, 91403655, 0569279514, 6182506 ####[facility] (DEFAULT)[address] [place] [address] 96136 Sodium [Moles/Vol] 139.0 mmol/L Normal 136.0-144.0 [facility] Comment on above: Performed By: #### 2 484602, [id number], [id number], 7284789, 55527226, 5328206407, 6860121 ####[facility] (DEFAULT)[address] [place] [address] 44527 Urea nitrogen [Mass/Vol] 13 mg/dL Normal 8-26 [facility] Comment on above: Performed By: #### 2 604489, [id number], [id number], 1642192, 81212385, 2465677222, 5356234 ####[facility] (DEFAULT)[address] [place] [address] Urea nitrogen/Creatinine [Mass ratio] 19.6 mg/mg High 4.6-16.2 [facility] Comment on above: Performed By: #### 2 239118, [id number], [id number], 1480155, 19139752, 6114234240, 3157394 ####[facility] (DEFAULT)[address] [place] [address] 86765 D-Dimeron 08-06-2022 D-Dimer 0.26 mg/L FEU Normal 0.19-0.50 [facility] Comment on above: Result Comment: The INNOVANCE [...] Liver cirrhosis ? Performed By: #### 2 603178, [id number], [id number], 0614834, 45918848, [id number], 5678488 ####[facility] (DEFAULT)[address] [place] [address] ED Clinical Summaryon 2022 ED Clinical Summary [facility] - Emergency Department [address] [place] [address] ED Clinical Summary PERSON INFORMATION Name: MARTINA PACK Age: 37 Years Sex: FEMALE : 1985 MRN: Acct#: Visit Reason: Vomiting; Vomiting; NAUSEA Arrival: 08/05/2022 21:44:34 Discharge: 08/06/2022 00:04:00 LOS: 000 02:20 Check In: 08/05/2022 21:44:34 Checkout:08/06/2022 00:04:00 Address: [facility] [address] PCP: Jose Larson MD PROVIDER INFORMATION Provider [...] : 1985 Associated Diagnoses: Enteritis; Vomiting Author: Omley, Hadley H DO Basic Information Time seen: Date & [...] antepartum Thumb tendonitis (more content not included)... [facility] ED Note - Physicianon 2022 ED [...] Vital si (more content not included)... Normal [facility] ED Note-Nursingon 08-06-2022 ED Note-Nursing Patient arrives with c/o nausea and vomiting for the past 2 hrs. States she felt fine earlier in the day. Was seen and treated for strep throat and walking pneumonia a few weeks ago and has finished medication, states still has a cough. Afebrile. No urinary symptoms. States had 2 glasses of wine around 1400 today. Normal [facility] ED Patient Summaryon 023 ED Patient Summary [facility] - Emergency Department [address] [place] [address] PATIENT DISCHARGE INSTRUCTIONS Patient Information Name: MARTINA PACK Age: 37 Years Date of : 1985 Reason For Visit: Vomiting; Vomiting; NAUSEA Arrival Time: 08/05/2022 21:44:34 Primary Care Physician: Jose Larson MD Attending Physician: Hadley Caba DO Comment: Visit Diagnosis: Diagnoses This Visit Enteritis (K52.9) Vomiting ([id number]) Vomiting ([id number]) The Pharmacy at [facility] is open Sunday through Sunday from 9A [...] alcohol and/or drug addiction problems; contact the [facility] 30/10 Crisis Hotline -Text 3YJXI lv [phone]. If you received any narcotics, sedation, or [...] With: Address: When: Jose [facility], [address] [place], [place] [address] Business (1) Within 3 to 5 days Comments: Home Expect some diarrhea You may use Imodium for your diarrhea Your liquids tonight We have provided Zofran for you for home if needed Return if fever, or persistent vomiting. Call Dr. Larson's office for a recheck appointment if not improved You are welcome to return here anytime. Shabbir CABA< ER PHYSICIAN< Nestor Lawrence [facility] Medication Information: The exam and treatment you received today in the [facility] Emergency Department were for an urgent problem and are not intended as complete care. It is important for you to follow up with a doctor, nurse practitioner, or physician?s or assistant for ongoing care. If your symptoms become [...] so we can reach you if necessary. [facility] Emergency Department has provided you with a complete list of medications post discharge. Please inform your physician assistant primary care/provider of your visit and for further instruction [...] up (vomiting) (more content not included)... Normal [facility] Extra Greyon 08-06-2022 Tube Collected Yes Invalid Interpretation Code [facility] Comment on above: Performed By: #### 2 622420, [id number], [id number], 3274772, 07448351, [id number], 6655208 #### [facility] (DEFAULT) [address] [place] [address] 01174 Lipaseon 08-06-2022 Lipase Level 30.0 IU/L Normal 22.0-51.0 [facility] Comment on above: Performed By: #### 2 538154, [id number], 0169508870, 2975012, 53459032, 9674678976, 3371544 ####[facility] (DEFAULT)[address] [place] [address] 60164 Mycoplasma pneumoniae IgMon 08-06-2022 Internal Control Pass Normal [facility] Comment on above: Performed By: #### 2 006228, [id number], [id number], 3124593, 92905215, 3824898899, 8196524 ####[facility] (DEFAULT)[address] [place] [address] 44557 Mycoplasma IgM Negative Normal Negative [facility] Comment on above: Performed By: #### 2 261718, [id number], [id number], 5450875, 04112024, 5416691633, 2459226 ####[facility] (DEFAULT)[address] [place] [address] 59555 Test Urine 1on U Preg Negative [facility] Comment on above: Performed By: #### 3 [id number] ####[facility] (DEFAULT)[address] [place] [address] 56777 U Preg Internal Control Pass [facility] Comment on above: Performed By: #### 3 [id number] ####[facility] (DEFAULT)[address] [place] [address] 73395 UA w Culture if Ind Standard on 08-06-2022 Breakpoint UA [facility] Comment on above: Performed By: #### 1 [id number] ####[facility] (DEFAULT)[address] [place] [address] Color (U) Yellow [facility] Comment on above: Performed By: #### 1 [id number] ####[facility] (DEFAULT)[address] [place] [address] 92250 Culture? Not Indicated Invalid Interpretation Code [facility] Comment on above: Result Comment: Resu lt created by rule GL_MAGR_ADD_UA_CULT1 Result created by rule GL_MAGR_ADD_UA_CULT1 Performed By: #### 1 [id number] ####[facility] (DEFAULT)[address] [place] [address] 73480 Glucose (U) [Mass/Vol] Negative [facility] Comment on above: Performed By: #### 1 [id number] ####[facility] (DEFAULT)[address] [place] [address] 07812 Ketones Ql (U) TRACE [facility] Comment on above: Performed By: #### 1 [id number] ####[facility] (DEFAULT)[address] [place] [address] 98906 Micro? Not Indicated Normal [facility] Comment on above: Result Comment: Resu lt created by rule GL_MAGR_ADD_UA_MICRO Performed By: #### 1 [id number] ####[facility] (DEFAULT)[address] [place] [address] 38085 UA Bilirubin Negative Normal [facility] Comment on above: Performed By: #### 1 [id number] ####[facility] (DEFAULT)[address] [place] [address] 23783 UA Blood Negative Normal NEGATIVE [facility] Comment on above: Performed By: #### 1 [id number] ####[facility] (DEFAULT)[address] [place] [address] 16499 UA Clarity CLEAR Normal CLEAR [facility] Comment on above: Performed By: #### 1 [id number] ####[facility] (DEFAULT)[address] [place] [address] UA Leuk Est Negative Normal NEGATIVE [facility] Comment on above: Performed By: #### 1 [id number] ####[facility] (DEFAULT)[address] [place] [address] 47564 UA Nitrite Negative Normal NEGATIVE [facility] Comment on above: Performed By: #### 1 [id number] ####[facility] (DEFAULT)[address] [place] [address] 87393 UA pH 5.5 Normal 5-8 [facility] Comment on above: Performed By: #### 1 [id number] ####[facility] (DEFAULT)[address] [place] [address] 01808 UA Protein Negative Normal [facility] Comment on above: Performed By: #### 1 [id number] ####[facility] (DEFAULT)[address] [place] [address] 45310 UA Spec Grav >=1.030 Normal 1.001-1.035 [facility] Comment on above: Performed By: #### 1 [id number] ####[facility] (DEFAULT)[address] [place] [address] 68957 UA Urobilinogen 0.2 mg/dL Normal 0.2-1.0 [facility] Comment on above: Performed By: #### 1 [id number] ####[facility] (DEFAULT)[address] [place] [address] 86697 Urine Source Clean Catch Normal [facility] Comment on above: Performed By: #### 1 [id number] ####[facility] (DEFAULT)[address] [place] [address] XR Chest 2 Viewson 3 XR Chest [...] Agustin Mayer 08/05/22 11:27 p Technologist: ELÍAS [facility] Coding Summaryon 08-01-2022 Coding Summary HTMLBase 64 WnvvwshdRBk2nYh+PGhlY WQ+MZ5URWIrO82esNXtkU 4LU9fGIO4OYHRUFQXTRF0 UYC9osOO6DQymS8SqsiSb AyemuSOpSL04TXo6RHN8d LthLIfgoG2pbHPiQ3r2Ug FcJF17oK02VUpuVEWtGbO 3LjZpbjsgbWFy S3wyXyFolJTwChh+PHRhY mxlIHdpZHRoPScxMDAlJy AwbRxdDC7sIh8yABDkNPN vbGxhcHNlOiBj w9xoQEKpZPukFD4wsEiwW 3OocDX6CDRrb2c3Az95qV I+QOTnCNV0dIfqLFgge26 1CnIgc4zqEDI9 tUIzBZmoGWF4I22dt7R9R ULpXZEpNUC1xFJ9aI2fgL uhwbypR9OotITfLbT7MUQ 2iEBgaS5ibNrm iyebmJ7pDkb+M00XAJ7UO VGKEP5PQbj3U9SjOojzsQ I+YY50KVHjDY73sXFvrRR id0melSy2UnUu FKZxDXU2cFktXHomi8KvY NSqZ86kkPEed3V6FCFsyZ mbhENiJgScdNR1xV4lLUg bcspvq2rbtdvz Xnxep9yqlz52fS87W05kO NhcFZUmKYY0JCPjBCQuxQ twhy8ihM5sIl0+LIutm2g ut5phcXj4CwMn YPVrggGvoZfrUQB8j5ToF x84S1ZviEnwp2QpBqv2gk 63aNAqz3B3uHI9RRifTGT cwN5yKHndLuD0 KGAiJoKhdA11aBJxUEjxH r9geQkrcFbaNV7dRRDjbi zdZZRkkQ6aHMKzkNZmfYl jEC5cXNJwujiu j011LsYrTHJ7JGKjhXLqS 9GjtM1tDuTyCAJrPLSzM0 ZskYOfPWcgM288PDksPaL 8ZTGsadXfF4Jg THKslQwnIwG9t4V2Zf7Aq 4ZcuvhlGRV9UViaRYQ0Hg P4ClUbVwC4U7XiNik9UNP idZikRP2rP9Rm MBHpixipspvjlRJ5FTSoW PQqaA74aHHnGEssMo0qy9 Y6k585JTVbQDXibW67Aa8 udDogMTBwdCBU tV1otfzkr4nqubxbSyVqC HKtGAd7HVu6HOAlcGrpOi PfFOZ5KrR9JLV0wVOnpN9 jiPxdcsfsiH7i Oyc+Y14nhQ3bOTL1VZU4e tghMDCwhrOvMD30UR74A8 RyPjwvdGFibGU+PGRpdiB vfIdaAP1xTlIo c8vir9VyGSzgM1PqGRAaK GxxNpe3DGIfOXG0jFW5kM 1nECPgQGhhr0O5gRK7N4T ijyNpbh4ht7ux SGEoRQggV70piPFen8Q2Y QWpfNG0QSEwrEzlYpLkcN 93Oyc+YLLalKmxv3CrDma gx7hpl7lscBj8 UdMaLBSnxwKiqBcoKZI4q 9HcZa33W91mRAbaKOBfYX VuDWDvPVOrdGlszc3bbT1 wIi8+PGNvbCB3 mSX1pD9dWIDnNzJ7XSslY 554IzJcwCFfTvdgf6idw8 ctxNx9OzQaRDUuimWtoHs iPYG0u2DlKe80 B14aMXkwGDLiTNHfWVFvS KTvnClcwc7biJ9eLn2+PC 7wx2bcrt22sI65pVC+PHR yMFW0mAmfKGsg OJNouB3zTZasCkY9CKTuW qKhpI90qOKfWVqyBm3xrF eqfNgbGX9rIMTbfywnf13 0UxUqk7oqACEy oWEaMKreRFK2J69di7J6D LMdFTZyJMI9aWB3fK1eeU lnbjogbGVmdDsgdmVydGl gGEaeAGiyE460 IHRvcDsnPlBhdGllbnQgT xOaAQe9K0RdLzz3TEMywV kuAV1seLSyYGspAc7auYe igXtrPD0eDKAv ycavb403IsOut5lkLBOgv DWrULcpFHZ3V11in7V0ND MeYHOuZAM6bNH8mJ0byDk nbjogbGVmdDsg yeYrhLgxVGwvYWggR987V HRvcDsnPkJpcnRoIERhdG E0RZ82KN33eHOnl5Q6xXT 0F9AlYIYbqsxh edwnyNO8ELKtWCYrvT00L j7rsSppJp4dPHYhFQV4BZ BzfMHbE4HkqG2fQvEwODS qECXsO7WxeKZc WDyiD193CSpxYbX8VTVki zSoP5ZxTDJdyDprEbI0g8 G1Vx4MN3L2TF88MO34wCX tb4R1gKS0W3Sb QUZceylszvsrlXI3LHIiZ FToyP98Ml6hxJxfJb9kVA CrETW1DBXifATkR4VnsJ5 yOiAjMDAwMDAw G4KkqFKyIGupY701ICntA aT6QAGpctAcR2TsIEFjbY ujOwZ7w2T8Ei6EJBs5HX3 2SU15jTNbi3V3 zDP6O2JsVKWjyynxzayhh TV0JESqMMRvyU87Hb7uyC qcHd1eXIRlVFW1RCSmzVQ yK3DiyG2rKdQd FZLaVBNjD4WzlYXeNWebS 698USdlNqO4FNEfeeIhK1 VjLJOhzYmhKsK7u3U0Qk0 KMOUdFW98XJL8 uVC7XQ23FB73R1QjTueiv GFibGU+PHRhYmxlIHdpZH RoPScxMDAlJyBzdHlsZT0 bFu2aHUYxFUDc hPkvzBDtHqIda6fuTISxB ZsnMC1ygDpwI4FcsWL6EH Jfv4k3Ym30M07tD3YjlZI +UAEgwQH4cFK7 wE3cFxBaIcN9OQrzG606K bMzkSUnRomci9zgz7isvK l3CbE7RRNfggQvnFlnJZO 1e5WwPz12I64n IHdpZHRoPSIxNSUiIHZhb Xbzub2mkB3aVd0+PGNvbC M4rME5tB2gNmBtGnL8DIi mN943YuQkqUTk Hmmmj4vns3zhzRd2WlNlD WThlvYccEaqPOG4c5IpKx 75I0HjiQqdr7QjNpt4qi2 0yBPah0M4gIM6 J8XgCEExvbcreMMmiVgaS Q0mTAQosvatJAZfgM3hHT BlM6n0QoPaIcO7GVdvK7F bbbT5JNQujRXm QCpgNMC9Q95ox0A4SDTsE NShGBO4sAV7xT4irCqdmh ogbGVmdDsgdmVydGljYWw iHUecD284HQPl kWtbDTRceL7hDCXidGRir AzqIJ6tPDReimvhUvKIVS 7ZEZWeYJ3PR68KUHDLCZ2 FRTwvdGQ+PHRk UGE6wRteRJgcMMSlmR4vC SQbW1x7KtRgYzA5LCzhX6 PkILBfypozLr12iF1yOuA rRtA2VJckG7Jx zsU4XKIloSSxNOcmGBW3O 69de8R5FQKyBCKfBIY1pX A3vG7exZolgsqnxHTuzEf gdmVydGljYWwt COepE336EDZsfIbaQjAgU vS0DkX8NHD5Y7RoVox9WD GpgZtfLV8msFGiUSftGr6 ekBpwkKluTF3p IAMgbvkeBXRxvU6oHYMhm KRftVlmNN7qMDXwfhjum0 28YpOjINV5EPIxcOYmI2Y iwV7cEzSxCSMq SJMrW7XrfZViZOaqE204M RabHsO4ZGOqtjRpX2OaFT ImxZeuCkM5y9I1Xq2gPBN ZZWFyczwvdGQ+ THKyNMT3mQavJHkpONOns O4sMKDwU7x3CxYeWpK6PQ lmD0WaTAFuslyqCt90aK6 tLpEqKeJ6DPwb R5CbvuX7UGAxlAWaIJnzW SV1P92wv7W2ABIuBZTnUK W3wKV9yT5roFhggfxtaTS mdDsgdmVydGlj ZDyyFLdcL176ZIPdeQwqO kZFTUFMRTwvdGQ+PHRkIH D0vXwtRBhzHGYalO2pMGE xI5l8EyHpTsE4 DQfjY2FlDCRrhidcSa17u N8oSlIjChR2POdnT8Auza W1UJMisYNkDExeSAJ1D27 wl3K9TAZbZUZm VLG1gLR6nV9xbWokjrwqz GVmdDsgdmVydGljYWwtYW wzI812XLDzoWdfAn7VEB9 4OD51J8PmFhnp dGFibGU+PHRhYmxlIHdpZ HRoPScxMDAlJyBzdHlsZT 6jJh5lSFWnBUXybXxgcSU sKfWme5gmDIAo QJuuFE7ehIldJ6IqaYK6X XTjp6c6Rs01I74mQ1MkaH A+PQKpiIX2lQR1gK8vVoY sKdS9MNwbY790 IxMhpHAgWydqy6lfp6kuy Ap1YxClCPTneuSkkXagOK U3d6RwQq47D62nTUowRQY oPSIyMCUiIHZh iKhlxl4rhE1gTh6+PGNvb PG2gSP7aK5hLgFcSzR3BK zvJ694JbWgoKPzRdcdA11 uW2ExxVS+PHRy Chi1THOtrNeuMB8agJRsB BqhBz3lKXL5FqQkNqXnTE pwD8UqFMWvxlqheikkuQM 5FRQzLMMkjL16 Sx2mpXaxTu6vMNKgNXA0Y HFzfIQsK2RwvT1rEoXvMS RyTOExY8NvoRLaINmiU80 9FShcDyY7YDBv afNyX1GbRQIldCvnNfP8l 6M3Py9DwSifoOLaHA4jZb EwOTc6W2XpSae3QEPemXy dGP1unIWxJJnn Yn5phIsuiGtbTJ1lSVPkc oxqr971WdSpr9hfUVWzbZ TnGJuhSPD2O07rj2L4OJZ kRXExQAU3mPB9 yC1myVmgwrzibTNapTlgk aDpyAurIJjdADwzB386OB NywKirUoYGNee1B7WhFaq 1EWBkdSayYF1e eQPwLNgwYt1ngWzgdXwrD H1tJCTeghqxn202MoRrh9 kiTQTrpJMxDHsvODK9T44 mq3Q6ZENnBWEf FQI7iHX5rC1vdIfzuuilr GVmdDsgdmVydGljYWwtYW paT671EWJslYqmKe2CShn 5L2CaAfo4HJTv aYwfHQ0djHRfGPkhKx0tc QoinAaiFF1jMMSlvqfik0 74OrHlz4tkFKKglUSdBVf nFJC1U39dw7Y8 MPFpOIOnMHJ8eDK7rV8tr GlnbjogbGVmdDsgdmVydG nwJEzzJCakE877FFVhbCi nPlBheWVyOjwv dGQ+DS40kb70F0NnLbfkA bk1HAIuYHE8rSJ0iZ5bBR ImLSomf1Z5mNI1P3NrjzS dmz0xm6tyHZDh ZTo (more content not included)... [facility] Coding Summaryon 07-31-2022 Coding Summary HTMLBase 64 OgouszwxZQm7lTv+PGhlY WQ+KM9LCZFrB62fmDYifZ 3JN3dGYT8ABGXKTXULPM6 CJH8hxFF4QRywV8AkyvXt PgkyqAJdLA12JQq4IDT2m JydECkxkQ7cvOMrX2y5Ef CfET59cE41EQwvESZtVcG 3LjZpbjsgbWFy D0uwLpAcpQVbSso+PHRhY mxlIHdpZHRoPScxMDAlJy YpiFyiAX5eZp1oANGyIKV vbGxhcHNlOiBj b1exFIPrWRllXJ7arNzbE 8WihLZ9USAvx4q3Xa95cM I+KJLmITG9uOgjRQtns23 2ZjEur7cxKPR7 cAIsJHgmZHR7A08wn2L2Q SEtPMTiWPQ2iSD0oK6qyT fepyrxL2TmySXgXxW1MGL 0dWRloJ7yfNix cshxbE8yBsk+B49GJX7AL YJQAG7YSil7Y0EwAibawQ I+TC35FMSaXJ93jZBzfAA qg6oyoCa3WuCt MSQtWRC9sSijZZink3GxX FDyC71vlAVyl6X4OARbsZ ahlZPlWaInmRW3qA5bYUv nsrbnz4zlzxws Xmvcz8pegt95kK53C42uH QlnIZJoRQM4TPMvMGGtcP yayk1icV0gJy5+FNnff9c yo7pfkMy6YhFw SAXgpiTxiZaxHTL9t7DcG e77P9VzzIedz1CsJzr6gb 40iJRuh2O6aOX1XFvdGAY laP4xXQueAsP6 FDZsJrZweN70bZExGDmmR s9nrPpakPkqIO6jKPWwjp opOQPdvE4xJAVooKBkgBb xBW6tGSMsvhyh k742YuHkRIS7NSTvuCZcX 3UpiU3dJrMcISZdAZIqL8 LrlVDnECpoW443NHsxByP 7XAUpmlSiI3Za NUEgzNsoFaI7v0Z6Di1Oz 2QqtrkjKON7LJumOMX8Kb J0UjXrHdY7U1KgPvg7IMH seTchVZ2aU9Qs HTHshehrhdzyiTB4ZAGnD JWguM18fMJsOPioVp8mb9 I3a649EOFbBGYrfD09Qv0 udDogMTBwdCBU cY1dxbeae6qgxlvbXaRfX NHtYRc3QIq1DOGbzIzyJk YtXIU9ScJ0VGO6yTBixX6 nhCgogxnsvV0z Oyc+F04wlT5jSZV7PWX4v skbOLPupdZdCF85DN76D1 RyPjwvdGFibGU+PGRpdiB lgXjcAD0xPsVh a5rdh2ZyLDyiN0PiACWqV VshHpw1XVQeWRA7tSG7cE 9eQHYnJEomf1C6iEQ3I7X vqzOjnk5cf9it GKSlEKusQ14bsTOmb3R4T RVdfCC6OZZkvTopFvSoqD 93Oyc+QRYenYftu7CwKxu bi8zix0lhnQn3 MmEnGXFovdRetPfoFNZ7a 7TlFf48Y54kNOuhFZOyLI RhCJNgJMAqeNzkdb7byM4 wIi8+PGNvbCB3 aBS0pP9fDGVlIgI6SHerZ 361MpXrfCGjHnhad0nao2 chxAp8JhPgTBLasuAihEl lBDJ7x2EoQn82 K00dQOlsQNOkUXPkWEUtJ HBgdJqgqm4pyR4zSm1+PC 0rf3rreh78mR89yOF+PHR tDUS6bGkeOBla BENxhP3rWPldNeK6ZYUhN lJyiG04iJEvFRgtOe7ubL udlXrsLW6fSMRlpaigr36 9XnSck8mdXTVq cLJrYAwrGLI0X88ae9J5P PNhXSCjQOC1hDF0mI7doW lnbjogbGVmdDsgdmVydGl ePNdtQOsuV777 IHRvcDsnPlBhdGllbnQgT oNaGLr4W4UvIzr5MAYwoY ndYP9vcZFlGQgnZy6fpKj rlAutRU4oBJCz kelqt274JpDdi9kmVEZvg VPkYKonMUT0I49zq1Y5QI OgHARhIPY0mJF1iK2ujFp nbjogbGVmdDsg lyNojYmfQKewFJyvA664L HRvcDsnPkJpcnRoIERhdG N4LD83VF89hLCzz1Y1zWO 3G9TxLQGfoxvv rctkoIW1CTOhARNeyB56T k9dpJveOc4vOORaRPI9FR IcfVXuT1DglC4gDaAfZIK wDDQxQ2VlxYXk EFjkO448EMwjLcZ8QUGnd pTaZ3QlSOTviWsbSkZ3g7 M6Ye0ZC7Y4MC50DC61zIH wh7H9tMW7K3Yd IAIcshivgjjljVS7PUAhL TCprB16Je3fwLlgZc4pAU KcHJG2FXExoQNpE5PddB3 yOiAjMDAwMDAw H5SymNYoUTwqV117DVyzW eH8IMSbqvDjG5YoXEWagG nePdT4o4D0Gs2ENJo0EK1 9ZR67cRJtt9B0 kNE4K3LbRZTbneeodyflg ME3BMSpKGNksJ07Kx1geJ fhTn1bUFMeIWY4RNTqhKQ dM8WnbU4iAlGg GBNbUGRlL3LpqNDgXQxrD 913DTcwFaC0ZDHuljDfE5 LtHBTjrDngSxH0m2G9Eq7 ZOFHwQF10QKO4 gWF7WV62QC08N6VhGlmys GFibGU+PHRhYmxlIHdpZH RoPScxMDAlJyBzdHlsZT0 yKx8nBISpQHYh iVzkhVUfStEnb6qyZJSxQ OxvQX8mlFbwA0FvrPL5XY Buk4u1Rl72C41vT0JkzYF +NSHvwNG2oTC2 vS0zZaYbBjI2HCshT755Z oMifAQiNlunv5wcd7vhoC w9GlS4FYItviGgnOmyFRF 0e9UqDj56J28t IHdpZHRoPSIxNSUiIHZhb Kmqqc4myW6aDo2+PGNvbC H6mGM5dA1lIsLyNeG1TPb yW313KtNaoTFe Eqeim6kwi1pzgVk7IrDoN FZzfwCvpHtxMUR2k6JcQg 45K3PsgXtfy7PmUsf5cl0 4lJQji8B4xRT7 I6EnYMFdbmcnePQvyZtoB W0iBPBfklelYMCffF0xLS MeA2n6JxIdFfF1NWxrP6J osaO8JBDejIMy LHwoAOV9Z79ch3X9ZFZzN LRcSHI1nIW4iG5kfHmsnt ogbGVmdDsgdmVydGljYWw fNFdzF214UWBf hMmwCOCieA9dBDQapJClu LocDK7oYFRecghrUnKOIM 8TJBPdQZ7JR03TAXUSPX6 FRTwvdGQ+PHRk ONX2kTepEPquVGTzxI2yO RUcT7c5TeObNqF5NOdxS5 AfJBCaacpeJp57jR4wDeM aGhW1QWwaL5Om ebY4VFNqgTSeRCcdZYH7Y 68ha2K9XDNgPRSdPFE6aG D5hG4ojOiejovdkDDadWz gdmVydGljYWwt CQuaI976AMCwxCtlMjYqA fP9WnN9GUP7A5SyCdp1RF VhtFaeFR8ryUEmRFfyKh5 xcOxedAxnMM0i MHZwvmweVZFyiL1iOSGus SApmZkyPB8jIIJifwgsp2 54KqFaVYK9HKMyyNIpA6D paC9jUmYzNMFa NBMaK6PruPGhQRcbX394Q LcoMuP8IOQknmLpF0IwIZ BqcCkwEbA6k0X1Nv7hQJQ ZZWFyczwvdGQ+ XHFvLYF3eEusOUzeZAGzj G9cEVZyJ7r5IoOtFiH9NH akY9UlXYUsdxegFw37iO0 mCzDeIbT7EOmt X3JyjhK4GEUthLNoDKexG BD1Q54es3R6JKLmKNRpON U1bFV3tI1seGabfwyusPR mdDsgdmVydGlj HMfhXThwG601JCXjvSriI kZFTUFMRTwvdGQ+PHRkIH Z6mFuqYYzyPHVlaR6kNCY zR0x9YiOdDiJ5 VRmjL9UiYGNhbzenGv17m E1mCaTbIvG5TMzgA5Brfx H3RKTyhXGvHFxiYSC4U81 na1J0APJnPEWw TTJ1mBP5uZ9kjDftkzcct GVmdDsgdmVydGljYWwtYW leA901KAFppEbkJn7DVL9 9UQ79S2FiFzxb dGFibGU+PHRhYmxlIHdpZ HRoPScxMDAlJyBzdHlsZT 9yUs0dEKIpSOZoiZpzuVW xGoOnf3irTKPh ATnpUU9zjEmuY2QywKH8W IOwl1w7Ej09C26iU1YneG A+ILQmlOV0cER3zP3mTtF aJhP8LSwkI127 LnZniZOkBfdos3xmt2wlh Tj4UkKzOLMnubZntIeoTB S8e9XaHk65U30vBAebKEP oPSIyMCUiIHZh uQhfrw1mlG0xSn7+PGNvb MB0mXS5yC2kHgVkYxK6ZR myN311AtPvyNZgWpswM09 yB2FicCO+PHRy Gcw0BWLpaAjeMM6nsUHuS ObdOr1bVLA7LdIpOcToLM hoV9UdTIIwuvuttstjsZG 7AVLyNGZwwE30 Rw3xbGdeGt1fOJGpFMG0I OJgdZCtK0KtxF6wAjKrIO QrYSXoZ7NvrBBjOZepN90 5IWqaHuE2OJFk zuFrT3UsFRKnyXffCtE6m 8C5Hq0WkGawaTQdVB6xBx WtILg6A1IiSkd2QCVmbIz fAL0soLXrYMqg Ez7wxKdyzRgvAE7iSXPrf kjnb165YmQkx5qxZWDidA HdBVyyHWY9T38ws3O6TWT dHFWaIZU3cGF6 aA8uzAqflwcvpJEyeVumk aMtyTriSUogTOujR493OB DhzAbeBeSRIag1V8LcGks 5KLFdrJagFG0n fHIlQAdbXc6ezKdxpYicH H2rUUJwjhuty975ObLzu3 msPPAqfLDxIZexQCG3I37 iw8D7IJRmCWBz DTL0uNH8wF1syCqnawwzz GVmdDsgdmVydGljYWwtYW gnF692AJOggNooVe9QIqz 8X7IqCes7QOOi nCtcLS2hzAYaLLgzLw9ey NauuDflOE5gJAJqkfhzb8 69YvMwe9geUEAbsEKjKTw nIKS2N01gi0G5 JBZoMTMdWWE2qLI0nM3rh GlnbjogbGVmdDsgdmVydG arTMliDJbcS282XCWrlQb nPlBheWVyOjwv dGQ+AL01tg62W3IgOckhU ai3TTDiZFE3kKG0yB6xRA GiZUons7F0pEB5K5FoogG few6cf3oqZTNi ZTo (more content not included)... Normal [facility] ED Clinical Summaryon 2022 ED Clinical Summary [facility] ? Urgent Care [address] [place] [id number] Clinical Summary PERSON INFORMATION Name: MARTINA PACK Age: 37 Years Sex: FEMALE : 1985 MRN: Acct#: Visit Reason: Cough; COUGH, SOB Arrival: 07/18/2022 17:09:49 Discharge: 07/18/2022 18:00:00 LOS: 000 00:51 Check In: 07/18/2022 17:09:49 Checkout: 07/18/2022 18:00:00 Address: [address] [facility] [address] PCP: Jose Larson MD PROVIDER INFORMATION Provider [...] Follow-Up: With: Address: When: Jose Larson MD [address] [phone] Comments: Diagnosis is upper respiratory tract infection. [...] verbalizes understanding of instructions given Comment: Normal [facility] ED Patient Summaryon 023 ED Patient Summary [facility] ? Urgent Care [address] [place] [address] PATIENT DISCHARGE INSTRUCTIONS Patient Information Name: MARTINA PACK Age: 37 Years Date of : 1985 [facility]: [id number] Reason For Visit: Cough; COUGH, SOB Arrival Time: 07/18/2022 17:09:49 Primary Care Physician: Jose Larson MD Attending Physician: Hadley Sanderson Comment: Patient Education With: Address: When: Jose Larson MD [facility] [id number] [address] Comments: Diagnosis is upper respiratory [...] to help relieve symptoms, such as: ? Xwxs-uwg-sxiikek cold medicines. ? Cough suppressants. Coughing is [...] other clear broths. General instructions ? Take fqki-esh-scigkwd and prescription medicines only as told by your health care provider. These include cold medicines, fever reducers, and cough suppressants. ? Do not use any products that contain nicotine or tobacco, such as cigarettes and e-cigarettes. If you need help quitting, (more content not included)... Normal [facility] Care [address] 023 Urgent Care Record [facility] ? Urgent Care [address] [place] [address] PATIENT DISCHARGE INSTRUCTIONS Patient Information Name: MARTINA PACK Age: 37 Years Date of : 1985 Reason For Visit: Cough; COUGH, SOB Arrival Time: 07/18/2022 17:09:49 Primary Care Physician: Jose Larson MD Attending Physician: Hadley Sanderson Comment: Visit Diagnosis: Diagnoses This Visit Cough (47626650) Upper respiratory tract infection (J06.9) If you [...] documents With: Address: When: Jose Larson MD [facility] [id number] [address] Comments: Diagnosis is upper respiratory tract infection. [...] and treatment you received today in the [facility] were for an urgent problem and are not intended as complete care. It is important for you to follow up with a doctor, nurse practitioner, or physician?s or assistant for ongoing care. If your symptoms become [...] so we can reach you if necessary. [facility] has provided you with a complete list of medications post discharge. Please inform your physician assistant primary care/provider of your visit and for further instruction on these medications. Any specific questions regarding your chronic medications and dosages should be discussed with your primary care physician(s) and/or pharmacist. New Medications [facility] [address], [address] [place], [place] [id number], [phone] benzonatate (Tessalon Perles 100 mg oral capsule) [...] Problems List (more content not included)... Normal [facility] ED Clinical Summaryon 2022 ED Clinical Summary [facility] ? Urgent Care [address] [place], [place] [id number] Clinical Summary PERSON INFORMATION Name: MARTINA PACK Age: 37 Years Sex: FEMALE : 1985 MRN: Acct#: Visit Reason: UC - Ear Pain; UC - Sore Throat; UC - Headache; SORE THROAT, LT EAR PAIN, HEADACHE Arrival: 07/15/2022 12:02:53 Discharge: 07/15/2022 12:38:00 LOS: 000 00:36 Check In: 07/15/2022 12:02:53 Checkout: 07/15/2022 12:38:00 Address: [address] [place], [place] [id number] PCP: Jose Larson MD PROVIDER INFORMATION Provider Role Assigned Unassigned Lulú Baker VIDEO GAME ANIMATOR Nurse 07/15/2022 12:04:40 Hadley Sanderson ED PA [...] Follow-Up: With: Address: When: Jose Larson MD [facility] [address] [place] [address] Comments: Diagnosis is tonsillitis, history of hives, [...] verbalizes understanding of instructions given Comment: Normal [facility] ED Patient Summaryon 023 ED Patient Summary [facility] ? Urgent Care [address] [place] [address] PATIENT DISCHARGE INSTRUCTIONS Patient Information Name: MARTINA PACK Age: 37 Years Date of : 1985 Reason For Visit: UC - Ear Pain; UC - Sore Throat; UC - Headache; SORE THROAT, LT EAR PAIN, HEADACHE Arrival Time: 07/15/2022 12:02:53 Primary Care Physician: Jose Larson MD Attending Physician: Hadley Sanderson Comment: Patient Education With: Address: When: Jose Larson MD [facility] [address] [id number] Comments: Diagnosis is tonsillitis, history of hives, [...] at home: Medicines ? Take and apply npgd-rvt-biswfpn and prescription medicines only (more content not included)... Normal [facility] 023 Urgent Care Record [facility] ? Urgent Care [address] [place] [address] PATIENT DISCHARGE INSTRUCTIONS Patient Information Name: MARTINA [...] (R50.9) Tonsillitis (J03.90) UC - Ear Pain ([id number]) UC - Headache ([id number]) UC - Sore Throat ([id number]) If you received any narcotics, sedation, or [...] documents With: Address: When: Jose Larson MD [facility] [address] [address] Comments: Diagnosis is tonsillitis, history of [...] and treatment you received today in the [facility] were for an urgent problem and are not intended as complete care. It is important for you to follow up with a doctor, nurse practitioner, or physician?s or assistant for ongoing care. If your symptoms become [...] so we can reach you if necessary. [facility] Urgent [facility] has provided you with a complete list of medications post discharge. Please inform your physician assistant primary care/provider of your visit and for further instruction on these medications. Any specific questions regarding your chronic medications and dosages should be discussed with your primary care physician(s) and/or pharmacist. New Medications [facility] [address], [address], [place] [id number], [phone] amoxicillin (amoxicillin 500 mg oral capsule) 2 [...] Mass Ind (more content not included)... Normal [facility] MAMM SCREEN 3D JUSTINA CADon 03-14-2022 MG MAMM SCREEN 3D JUSTINA CAD Patient: MARTINA PACK Exam Date: 03/14/2022 : 1985 Gender:F Ordering : DR OSWALD WHIPPLE . Admission #: [id number] Family : Order #: [id number] CLICK HERE TO VIEW EXAM RADIOLOGY REPORT [...] breast cancer at age 40. LOCATION: [facility] BREAST COMPOSITION: Extremely dense, which lowers [...] Sabillon M.D. on 03/15/2022 at 07:35 Normal [facility] PAP ACOG PANEL 2: 30 to 65on 03-10-2022 . . Normal [facility] Comment on above: Result Comment: Perf ormed at: WB Performed By: #### [id number] #### [facility] [address] [address] [address] Yosef Mcdonough Age Gdln ACOG Testing 30-65 Normal [facility] Comment on above: Performed By: #### 4 [id number] #### [facility] [address] [address] [address] Yosef Mcdonough DIAGNOSIS: Comment Abnormal [facility] Comment on above: Result Comment: EPIT HELIAL CELL ABNORMALITY. ATYPICAL SQUAMOUS CELLS OF UNDETERMINED SIGNIFICANCE (ASC-US). Performed at: WB Performed By: #### 4 [id number] #### [facility] [address] [place] [address] Dr. Yosef Mcdonough Electronically signed by: Comment Normal [facility] Comment on above: Result Comment: Deyanira Valdovinos MD, Pathologist Performed at: WB Performed By: #### 4 [id number] #### [facility] [address] [address] [address] Yosef Mcdonough HPV Aptima Negative Normal Negative [facility] Comment on above: Result Comment: This nucleic acid amplification test detects fourteen high-risk HPV types (16,18,31,33,35,39,45,51,52,56,58,59,66,68) without differentiation. Performed at: =G Performed By: #### 4 [id number] #### [facility] [address] [address] [address] Yosef Mcdonough HPV Genotype Reflex Comment Normal [facility] Comment on above: Result Comment: Crit eria not met, HPV Genotype not performed. Performed at: WB Performed By: #### 4 [id number] #### [facility] [address] [address] [address] Yosef Mcdonough Methodology: Comment Normal [facility] Comment on above: Result Comment: This liquid based ThinPrep(R) pap test was screened with the use of an image guided system. Performed at: WB Performed By: #### 4 [id number] #### [facility] [address] [address] [address] Yosef Mcdonough Note: Comment Normal [facility] Comment on above: Result Comment: The Pap smear is a screening test designed to aid in the detection of premalignant and malignant conditions of the uterine cervix. It is not a diagnostic procedure and should not be used as the sole means of detecting cervical cancer. Both false-positive and false-negative reports do occur. . Performed at: WB Performed By: #### 4 [id number] #### [facility] [address] [address] [address] Yosef Mcdonough Pathologist Provided ICD10 Comment Normal [facility] Comment on above: Result Comment: R87. 610 Performed at: WB Performed By: #### 4 [id number] #### [facility] [address] [address] [address] Yosef Mcdonough Performed by: Comment Normal [facility] Comment on above: Result Comment: Ema Barrera Manager Access (ASCP) Performed at: WB Performed By: #### 4 [id number] #### [facility] [address] [address] [address] Yosef Mcdonough Recommendation: Comment Abnormal [facility] Comment on above: Result Comment: Sugg est follow up as clinically appropriate. Performed at: WB Performed By: #### 4 [id number] #### [facility] [address] [address] [address] Yosef Mcdonough Specimen adequacy: Comment Normal [facility] Comment on above: Result Comment: Sati sfactory for evaluation. No endocervical component is identified. Performed at: WB Performed By: #### 4 [id number] #### [facility] [id number] Yosef Mcdonough Coding Summary.on 11-19-2019 Coding Summary. CODING DATE: 11/19/2019 [facility] STATUS: Home (Routine DC) PAYOR: [facility] [place] [employer] DESCRIPTION 5373 Level 3 Urology and [...] Emilia Carrillo Date Saved: 11/19/2019 12:36 pm [facility] Consent for Procedure/Surger yon 11-19-2019 Consent for Procedure/Surgery [id number]# 1.00CD:127 [facility] Discharge Instructionson Discharge Instructions [id number]# 1.00CD:127 [facility] IntraOperative Documentson 0 11-19-2019 IntraOperative Documents [id number]# 1.00CD:127 [facility] Lab Reportson 11-19-2019 Lab Reports [id number]#1 .00CD:127 [facility] Consent for Treatmenton 11-07 Consent for Treatment [id number] .00CD:127 [facility] Main OR Intraoperative Recor don 11-18-2019 Main OR Intraoperative Record IntraOp Document Type FTURO Summary Primary Physician: Twan RODRIGUEZ MD Finalized Date/Time: 11/18/19 15:33:41 Pt. Name: MARTINA PACK/Sex: 1985 Female Med Rec #: [id number] Physician: Twan RODRIGUEZ MD Financial #: [id number] Pt. Type: O Room/Bed: / Admit/Disch: 11/18/19 14:46:18 - Institution: Case Times FTURO Entry 1 Patient Times In Room 11/18/19 15:20:00 Out Room 11/18/19 15:35:00 Procedure Times Start 11/18/19 15:29:00 Stop 11/18/19 15:31:00 Anesthesia Times Last Modified By: JERAMY Howard RN, Lou Ann 11/18/19 15:33:13 Case Attendance FTURO Entry 1 Entry 2 Entry 3 Case Attendee ROSALIE MARES, Twan Howard RN, MIRIAMOR, Tanya Zamorano DIRECTOR OF LABOR AND DELIVERY, Josiane Role Performed Surgeon - Primary Route Driver [employer] - Primary Scrub - Primary Time In 11/18/19 15:27:00 11/18/19 15:20:00 11/18/19 15:20:00 Time Out 11/18/19 15:35:00 11/18/19 15:35:00 11/18/19 15:35:00 Procedure CYSTOSCOPY LOCAL WITH CYSTOSCOPY LOCAL WITH CYSTOSCOPY LOCAL WITH STENT REMOVAL(Right) STENT REMOVAL(Right) STENT REMOVAL(Right) Comments Last Modified By: Anita CARMICHAEL, MIRIAMOR, MIRIAM Ramirez RNORTanya RN, MIRIAMORTanya 11/18/19 15:33:38 11/18/19 15:33:13 11/18/19 15:33:13 Surgical [...] MD, Verified (If Participants JERAMY Howard RN, Tanya Applicable) Lona Hernandez DIRECTOR OF LABOR AND DELIVERY, Josiane Time Out Complete 11/18/19 15:28:00 Allergies [...] Howard RN, Lou Ann 11/18/19 15:33 Normal [facility] Main OR Preoperative Recordo n 11-18-2019 Main OR Preoperative Record Holding Area Document Type FTURO Summary Primary Physician: Twan RODRIGUEZ MD Finalized Date/Time: 11/18/19 15:24:21 Pt. Name: MARTINA PACK/Sex: 1985 Female Med Rec #: [id number] Physician: Twan RODRIGUEZ MD Financial #: [id number] Pt. Type: O Room/Bed: / Admit/Disch: 11/18/19 14:46:18 - Institution: Case Times Holding FTURO Pre-Care Text: Verifies consent for planned procedure, identifies individual values and wishes concerning care, includes family members in perioperative teaching Secures patient's records' belongings, and valuables, maintains patient's dignity and privacy, and maintains patient confidentiality Entry 1 In Holding 11/18/19 14:46:00 Outcomes Met? Yes Last Modified By: [...] Howard RN, Lou Ann 11/18/19 15:24 Normal [facility] Operative Reporton 0 Operative Report Patient: MARTINA PACK Age: 34 years Sex: Female : 1985 Associated Diagnoses: None Author: Twan RODRIGUEZ MD Procedure Operative Information Details: Date/ [...] procedure well and was subsequently discharged home. [facility] Comment on above: Result Comment: Elec tronically Signed By: ROSALIE MARES, Twan Thompson\Date and Time Signed: 11/18/19 15:34 EDT Lab Reportson 11-07-2019 Lab Reports [id number] .00CD:127 [facility] Operative Reporton 0 Operative Report [id number]#1. 00CD:127 [facility] Formson 11-05-2019 Forms [id number] .00CD:127 [facility] Lab Reportson 11-05-2019 Lab Reports [id number] .00CD:127 [facility] RAD - CT Reporton 11-05-2019 RAD - CT Report [id number]. 00CD:127 [facility] RAD - MISCon 11-05-2019 RAD - MISC [id number] .00CD:127 [facility] Formson 11-04-2019 Forms [id number]#1. 00CD:127 [facility] Ambulatory Clinical Summaryo n 11-03-2019 Ambulatory Clinical Summary {[id number]-[id number]-fb-49-4f -2x-c0-29-9d-b2-ea-c3 -61-98}CD:[id number] [facility] Patient Educationon 11-03-19 20 Patient Education [...] Document Reviewed: 01/21/2010 ExitCare? Patient Information ?2013 [employer]Line. Normal [facility] 11-03-2019 [facility] [id number]#1. 00CD:127 Normal [facility] Urology Office/Clinic Noteon 11-03-2019 Urology Office/Clinic Note Chief Complaint f/u to [facility] HPI Staff Pt here as a new Pt, following up to [facility] visit on 10/28 due to kidney stones. Pt had CT done while in the ER and KUB done today at [facility]. Pt states that she did strain her [...] report and KUB report and film. Reviewed [employer] paperwork. There have been no associated fever, [...] Dr. Rodriguez. Follow-up With When Contact Information Twan RODRIGUEZ MD [facility] [address] [place] [address] [place] [phone] Additional Instructions: Patient Education Kidney Stones, Fmlj-jk-Oohz I, Lula Bajwa , personally scribed for [...] Urine Dip (more content not included)... Normal [facility] Comment on above: Result Comment: Elec tronically Signed By: Twan RODRIGUEZ MD\.br\Date and Time Signed: 11/03/19 13:07 EDT\.br\Electronically Co-Signed By: Lula Bajwa MA\.br\Date and Time Co-Signed: 11/03/19 12:59 EDT Encounters Encounter Date Encounter Type Care Provider Facility Start: 04-18-2023 End: 04-18-2023 ambulatory OSWALD SARABJIT Not Available Start: 03-12-2023 End: 03-12-2023 ambulatory OSWALD GROSSMANO Not Available Start: 12-29-2022 ambulatory Jose M Blunt [facility] Start: 12-20-2022 End: 12-20-2022 ambulatory PA Maria Guadalupe Guerrero Facility:[facility] Start: 11-03-2022 End: 11-04-2022 ambulatory Jose M Blunt Facility: [facility] Start: 08-08-2022 End: 08-09-2022 ambulatory Jose M Blunt [facility] Start: 08-05-2022 End: 08-06-2022 Emergency department patient visit Jose M Neo Facility:[facility] Start: 07-19-2022 End: 07-20-2022 ambulatory Jose M Neo Facility:[facility] Start: 07-18-2022 End: 07-18-2022 ambulatory Hadley ENG Facility:[facility] Start: 07-15-2022 End: 07-15-2022 ambulatory Hadley ENG Facility:[facility] Start: 03-14-2022 End: 03-15-[address] OSWALD WHIPPLE Facility:[facility] Start: 03-01-2022 End: 03-01-[address] OSWALD WHIPPLE Facility:[facility] Start: 03-01-2022 End: 03-02-2022 ambulatory Jose M Neo Facility:[facility] Payers Date Payer Category Payer Unknown [id number] 2.16.84 [id number] 1985 Unknown [id number] 2.16.84 [id number] 1985 Unknown [id number] 2.16.8 40.1.723106.3.579.2.718 1985 Unknown [id number] 2.16.8 40.1.972999.3.579.2.718 1985 Unknown [id number] 2.16.8 40.1.302556.3.579.2.718 1985 Unknown [id number] 2.16.8 40.1.593894.3.579.2.718 1985 Unknown [id number] 2.16.8 40.1.088533.3.579.2.718 1985 Unknown [id number] 2.16.8 40.1.743648.3.579.2.718 1985 Unknown [id number] 2.16.8 40.1.500826.3.579.2.718 1985 Unknown [id number] 2.16.8 40.1.539157.3.579.2.718 1985 Unknown [id number] 2.16.84 0.1.188022.3.579.2.718 1985 Unknown [id number] 2.16.84 0.1.050935.3.579.2.1259 1984 Unknown [id number] 2.16.840 .1.628515.3.579.2.1259 1959 Unknown [id number] Clinical Note 12-20-2022 Note Date & Type [...] these instructions at home: Medicines ? Take gwaj-ocu-nhuwqfg and prescription medicines only as told by [...] and water are not available, use hand engineer byproduct. Contact a health care provider if: ? [...] can cause a sore throat. ? Take dkkc-kut-ugyzait medicines only as told by your health [...] provider. Document Revised: 06/22/2021 Document Reviewed: 06/22/2021 [employer] Patient Education ? 2022 [employer]. [facility] Medication management note 08-08-2022 Note Date & Type Note Facility 08-08-2022 Note [id number] F [facility] Clinical Note 08-06-2022 Note Date & Type [...] 1 years old. ? Living in a care home. ? Going on cruise ships. What are [...] cannot use soap and water, use hand engineer byproduct. ? Make sure that all people in your home wash their hands well and often. ? Take pkkt-psb-kpzgpua and prescription medicines only as told by [...] not intended to (more content not included)... [facility] Clinical Note 07-18-2022 Note Date & Type [...] these instructions at home: Medicines ? Take gbxt-zmu-phmmbbz and prescription medicines only as told by [...] a condition that needs treatment. ? Take ksko-kej-mzgwrjo and prescription medicines only as told by [...] provider. Document Revised: 04/14/2019 Document Reviewed: 04/14/2019 [employer] Patient Education ? 2021 [employer] Interactive. Infectious Disease Upper Respiratory Infection, Adult An [...] ? Fever. ? (more content not included)... [facility] Clinical Note 07-15-2022 Note Date & Type [...] these instructions at home: Medicines ? Take oylv-cep-gkscgwr and prescription medicines only as told by [...] and water are not available, use hand engineer byproduct. ? Do not share cups, bottles, or [...] provider. Document Revised: 06/21/2021 Document Reviewed: 03/10/2021 [employer] Patient Education ? 2021 [employer]. Immunology Hives Hives (urticaria) are itchy, red, [...] contagious). Hives co (more content not included)... [facility] History and physical note 11-19-2019 Note Date & Type Note Facility 11-19-2019 Note [id number]#1.00CD:127 [facility] Clinical Note 11-18-2019 Note Date & [...] you have a fever over 100 degrees. [facility] Summary Purpose Family History No Family History Records FoundNo Family History Records FoundNo Family History Records FoundNo Family History Records Found Advance Directives No Advanced Directives Records FoundNo Advanced Directives Records FoundNo Advanced Directives Records FoundNo Advanced Directives Records Found Additional Source Comments INFORMATION SOURCE (unrecogn ized section and content) DATE CREATED AUTHOR 07/28/2020 [facility] DATE CREATED AUTHOR AUTHOR'S ORGANIZ ATION 03/18/2022 [facility] DATE CREATED AUTHOR AUTHOR'S ORGANIZ ATION 12/30/2022 [facility] DATE CREATED AUTHOR AUTHOR'S ORGANIZ ATION 04/20/2023 [facility] Special[facility] FOR RECORDS PERTAINING TO PATIENTS WHO ARE [...] BE BASED ON THE PRIMARY CLINICAL RECORDS. [facility] [employer] provides no warranty or guarantee of the accuracy or completeness of information in this document.
== END 2023-10-08 20:14 | disposition home or self-care (01) ==
LOC: LAB 20:13
PROVIDERS: Visit Provider Obstetrics & Gynecology
DX: R87.619 Unspecified abnormal cytological findings in specimens from cervix uteri (principal)
CPT/HCPCS: 88175

== ENCOUNTER 2024-03-24 21:55 | Outpatient (REF) | payer OTHER, SELFPAY ==
--- OUTSIDE RECORDS SUMMARY | 2024-03-24 21:58 | XMS_ITS | CCD ---
Author Organization [facility] Care Team Providers Care Obstetrics Teacher Name Role Phone DR OSWALD WHIPPLE Admitting Unavailable SARABJIT, DR AKERS Attending Unavailable MISC, DR BRIDGES Primary Care Unavailable SARABJIT, DR AKERS Consulting Unavailable ZIEBER, DR MADAN Briggs Consulting Unavailable SARABJIT, DR AKERS Admitting Unavailable SARABJIT, DR AKERS Attending Unavailable MISC, DR BRIDGES Primary Care Unavailable SARABJIT, DR AKERS Consulting Unavailable SARABJIT, OSWALD Attending Unavailable SARABJIT, OSWALD Attending Unavailable SARABJIT, OSWALD Attending Unavailable OSWALD WHIPPLE Attending Unavailable Jose Larson Primary Care Unavailable Jose Larson Attending Unavailable Allergies Allergy Classification Reported Allergen(s) Allergy Type Date of Onset Reaction(s) Facility (2 sources) Levamisole; Translations: [Phenergan] Drug Allergy 12-12-2016 [facility] Repository (1 source) Promethazine; Translations: [promethazine] Drug Allergy [facility] Repository Problems Problem Classification Problem [...] Results Test Name Value Interpretation Reference Range Facil ity MG MAMM SCREEN 3D JUSTINA CADon 03-14-2022 MG MAMM SCREEN 3D JUSTINA CAD Patient: MARTINA PACK. Exam Date: 03/14/2022 : 1985 Gender:F Ordering : DR OSWALD WHIPPLE . Admission #: [id number] Family : Order #: [id number] CLICK HERE TO VIEW EXAM RADIOLOGY REPORT [...] breast cancer at age 40. LOCATION: [facility] BREAST COMPOSITION: Extremely dense, which lowers the [...] Sabillon M.D. on 03/15/2022 at 07:35 Normal [facility] PAP ACOG PANEL 2: 30 to 65on 03-10-2022 . . Normal [facility] Comment on above: Result Comment: Perf ormed at: WB Performed By: #### [id number] #### [facility] [address] [address] [address] Yosef Mcdonough Age Gdln ACOG Testing 30-65 Normal [facility] Comment on above: Performed By: #### [id number] #### [facility] [address] [address] [address] Yosef Mcdonough DIAGNOSIS: Comment Abnormal [facility] Comment on above: Result Comment: EPIT HELIAL CELL ABNORMALITY. ATYPICAL SQUAMOUS CELLS OF UNDETERMINED SIGNIFICANCE (ASC-US). Performed at: WB Performed By: #### [id number] #### [facility] [address] [address] [address] Yosef Mcdonough Electronically signed by: Comment Normal [facility] Comment on above: Result Comment: Deyanira Valdovinos MD, Pathologist Performed at: WB Performed By: #### [id number] #### [facility] [address] [place] [address] Dr. Yosef Mcdonough HPV Aptima Negative Normal Negative [facility] Comment on above: Result Comment: This nucleic acid amplification test detects fourteen high-risk HPV types (16,18,31,33,35,39,45,51,52,56,58,59,66,68) without differentiation. Performed at: =G Performed By: #### [id number] #### [facility] [address] [place] [address] Dr. Yosef Mcdonough HPV Genotype Reflex Comment Normal [facility] Comment on above: Result Comment: Crit eria not met, HPV Genotype not performed. Performed at: WB Performed By: #### [id number] #### [facility] [address] [place] [address] Dr. Yosef Mcdonough Methodology: Comment Normal [facility] Comment on above: Result Comment: This liquid based ThinPrep(R) pap test was screened with the use of an image guided system. Performed at: WB Performed By: #### [id number] #### [facility] [address] [place] [address] Dr. Yosef Mcdonough Note: Comment Normal [facility] Comment on above: Result [...] Performed at: WB Performed By: #### [id number] #### [facility] [address] [place] [address] Dr. Yosef Mcdonough Pathologist Provided ICD10 Comment Normal [facility] Comment on above: Result Comment: R87. 610 Performed at: WB Performed By: #### [id number] #### [facility] [address] [place] [address] Dr. Yosef Mcdonough Performed by: Comment Normal [facility] Comment on above: Result Comment: Ema Barrera Crossbar Frame Wirer (ASCP) Performed at: WB Performed By: #### 4 [id number] #### [facility] [address] [address] [address] Yosef Mcdonough Recommendation: Comment Abnormal [facility] Comment on above: Result Comment: Sugg est follow up as clinically appropriate. Performed at: WB Performed By: #### 4 [id number] #### [facility] [address] [address] [address] Yosef Mcdonough Specimen adequacy: Comment Normal [facility] Comment on above: Result Comment: Sati sfactory for evaluation. No endocervical component is identified. Performed at: WB Performed By: #### 4 [id number] #### [facility] [address] [address] [address] Yosef Mcdonough Coding Summary.on 11-19-2019 Coding Summary. CODING DATE: 11/19/2019 FINAL [facility] STATUS: Home (Routine DC) PAYOR: Medical Dagmar APC DESCRIPTION 5373 Level 3 Urology and [...] Date Saved: 11/19/2019 12:36 pm [facility] Consent for Procedure/Surger yon 11-19-2019 Consent for Procedure/Surgery [id number]#1. 00CD:127 Normal [facility] Discharge Instructionson Discharge Instructions [id number]#1. 00CD:127 Normal [facility] IntraOperative Documentson 0 11-19-2019 IntraOperative Documents [id number]#1. 00CD:127 Normal [facility] Lab Reportson 11-19-2019 Lab Reports [id number]#1.0 0CD:127 Normal [facility] Consent for Treatmenton 11-07 Consent for Treatment [id number]#1.0 0CD:127 [facility] Main OR Intraoperative Recor don 11-18-2019 Main OR Intraoperative Record IntraOp Document Type FTURO Summary Primary Physician: Twan RODRIGUEZ MD Finalized Date/Time: 11/18/19 15:33:41 Pt. Name: MARTINA PACK/Sex: 1985 Female Med Rec #: [id number] Physician: Twan RODRIGUEZ MD Financial #: [id number] Pt. Type: O Room/Bed: / Admit/Disch: 11/18/19 14:46:18 - Institution: Case Times FTURO Entry 1 Patient Times In Room 11/18/19 15:20:00 Out Room 11/18/19 15:35:00 Procedure Times Start 11/18/19 15:29:00 Stop 11/18/19 15:31:00 Anesthesia Times Last Modified By: JERAMY Howard RN, Lou Ann 11/18/19 15:33:13 Case Attendance FTURO Entry 1 Entry 2 Entry 3 Case Attendee Twan RODRIGUEZ MD RN, MIRIAMOR, Tanya Zamorano CST, Josiane Role Performed Surgeon - Primary Quality Control - Primary Scrub - Primary Time In 11/18/19 15:27:00 11/18/19 15:20:00 11/18/19 15:20:00 Time Out 11/18/19 15:35:00 11/18/19 15:35:00 11/18/19 15:35:00 Procedure CYSTOSCOPY LOCAL WITH CYSTOSCOPY LOCAL WITH CYSTOSCOPY LOCAL WITH STENT REMOVAL(Right) STENT REMOVAL(Right) STENT REMOVAL(Right) Comments Last Modified By: Anita RN, MIRIAMOR, Tanya Howard RN, MIRIAMOR, Tanya Howard RN, MIRIAMOR, Tanya Hernandez 11/18/19 15:33:38 11/18/19 15:33:13 11/18/19 15:33:13 Surgical [...] JERAMY Howard RN, Tanya Applicable) Lona Hernandez CST, Amber Time Out Complete 11/18/19 15:28:00 Allergies Reviewed? [...] Howard RN, Lou Ann 11/18/19 15:33 Normal [facility] Main OR Preoperative Recordo n 11-18-2019 Main OR Preoperative Record Holding Area Document Type FTURO Summary Primary Physician: Twan RODRIGUEZ MD Finalized Date/Time: 11/18/19 15:24:21 Pt. Name: MARTINA PACK Chester Muhammad./Sex: 1985 Female Med Rec #: [id number] Physician: Twan RODRIGUEZ MD Financial #: [id number] Pt. Type: O Room/Bed: / Admit/Disch: 11/18/19 [...] Howard RN, Lou Ann 11/18/19 15:24 Normal [facility] Operative Reporton 0 Operative Report Patient: MARTINA PACK Age: 34 years Sex: Female : 1985 Associated Diagnoses: None Author: Twan RODRIGUEZ MD Procedure Operative Information Details: Date/ Time: 11/18/2019 15:33:00. Pre-Op Dx: Foreign Body in Bladder - T19.1XXA. Post-Op Dx: Same. Anesthesia Type: Local. Procedure: Local Cystoscopy with Stent Removal. Complications: None. Risks/Benefits/Informe d Consent: Surgical risks, benefits, details of the [...] and was subsequently discharged home. [facility] Comment on above: Result Comment: Elec tronically Signed By: Twan RODRIGUEZ MD\.br\Date and Time Signed: 11/18/19 15:34 EDT Lab Reportson 11-07-2019 Lab Reports [id number] 0CD:127 [facility] Operative Reporton 0 Operative Report [id number]#1.00 CD:127 [facility] Formson 11-05-2019 Forms [id number]#1.0 0CD:127 [facility] Lab Reportson 11-05-2019 Lab Reports [id number]#1.0 0CD:127 [facility] RAD - CT Reporton 11-05-2019 RAD - CT Report [id number]#1.00 CD:127 Normal [facility] RAD - MISCon 11-05-2019 RAD - MISC [id number]#1.0 0CD:127 Normal [facility] Formson 11-04-2019 Forms [id number]#1.00 CD:127 Normal [facility] Ambulatory Clinical Summaryo n 11-03-2019 Ambulatory Clinical Summary {[id number] }CD:[id number] [facility] Patient Educationon 11-03-19 Patient Education Family Medicine Kidney Stones Kidney [...] Document Reviewed: 01/21/2010 ExitCare? Patient Information ?2013 [employer]. Normal [facility] RAD - MISCon 11-03-2019 [facility] MIS [id number]#1.00 CD:127 Normal [facility] Urology Office/Clinic Noteon 11-03-2019 Urology Office/Clinic Note Chief Complaint f/u to [place] ER HPI Staff Pt here as a new Pt, following up to [place] ER visit on 10/28 due to kidney stones. Pt had CT done while in the ER and KUB done today at [place]. Pt states that she did strain her [...] report and KUB report and film. Reviewed MANAGER EDUCATIONAL paperwork. There have been no associated fever, [...] With When Contact Information ROSALIE MARES, Twan Briggs [address] [place] [address] [place] [address]- [phone] Additional Instructions: Patient Education Kidney Stones, [id number] I, Lula Bajwa , personally scribed for [...] Urine Dip (more content not included)... Normal [facility] Comment on above: Result Comment: Elec tronically Signed By: Twan RODRIGUEZ MD\.br\Date and Time Signed: 11/03/19 13:07 EDT\.br\Electronically Co-Signed By: Lula Bajwa MA\.br\Date and Time Co-Signed: 11/03/19 12:59 EDT Encounters Encounter Date Encounter Type Care Provider Facility Start: 03-11-2024 End: 03-11-2024 ambulatory Jose M Blunt Facility:[facility] Start: 11-15-2023 End: 11-15-2023 ambulatory OSWALD SARABJIT Not Available Start: 10-08-2023 End: 10-08-2023 ambulatory OSWALD SARABJIT Not Available Start: 04-18-2023 End: 04-18-2023 ambulatory OSWALD SARABJIT Not Available Start: 03-12-2023 End: 03-12-2023 ambulatory OSWALD SARABJIT Not Available Start: 03-14-2022 End: 03-15-[address] OSWALD WHIPPLE Facility:[facility] Start: 03-01-2022 End: 03-01-[address] OSWALD WHIPPLE Facility:[facility] Payers Date Payer Category Payer Unknown [id number] 2.16.84 [id number] 1985 Unknown [id number] 2.16.84 [id number] 1985 Unknown [id number] 2.16.84 [id number] 1985 Unknown [id number] 2.16.84 [id number] 1985 Unknown [id number] 2.16.84 [id number] 1985 Unknown [id number] 1985 Unknown [id number] 2.16.8 [id number] 1960 Unknown [id number] History and physical note 11-19-2019 Note Date & Type Note Facility 11-19-2019 Note [id number] 1#1.00CD:127 [facility] Clinical Note 11-18-2019 Note Date & [...] you have a fever over 100 degrees. [facility] Summary Purpose Family History No Family History Records FoundNo Family History Records FoundNo Family History Records FoundNo Family History Records FoundNo Family History Records Found Advance Directives No Advanced Directives Records FoundNo Advanced Directives Records FoundNo Advanced Directives Records FoundNo Advanced Directives Records FoundNo Advanced Directives Records Found Additional Source Comments INFORMATION SOURCE (unrecogn ized section and content) DATE CREATED AUTHOR 07/28/2020 [facility] DATE CREATED AUTHOR AUTHOR'S ORGANIZ ATION 03/18/2022 [facility] DATE CREATED AUTHOR AUTHOR'S ORGANIZ ATION 11/17/2023 [facility] EPIC DATE CREATED AUTHOR AUTHOR'S ORGANIZ ATION 12/07/2023 [facility] EPIC DATE CREATED AUTHOR AUTHOR'S ORGANIZ ATION 03/13/2024 [facility] FOR RECORDS PERTAINING TO PATIENTS WHO ARE [...] BE BASED ON THE PRIMARY CLINICAL RECORDS. [facility]. provides no warranty or guarantee of the accuracy or completeness of information in this document.
== END 2024-03-24 21:56 | disposition home or self-care (01) ==
LOC: LAB 21:55
PROVIDERS: Visit Provider Obstetrics & Gynecology
DX: Z01.419 Encounter for gynecological examination (general) (routine) without abnormal findings (principal)
CPT/HCPCS: 87624; 88175

== ENCOUNTER 2024-04-21 10:23 | Outpatient (REF) | payer OTHER, SELFPAY ==
--- OUTSIDE RECORDS SUMMARY | 2024-04-25 10:42 | XMS_ITS | CCD ---
Author Organization [facility] Care Team Providers Care Protohistorian Name Role Phone DR OSWALD COLLINS Admitting Unavailable KARINA, DR AKERS Attending Unavailable MISC, DR BRIDGES Primary Care Unavailable KARINA, DR AKERS Consulting Unavailable ZIEBER, DR MADAN Briggs Consulting Unavailable KARINA, DR AKERS Admitting Unavailable KARINA, DR AKERS Attending Unavailable MISC, DR BRIDGES Primary Care Unavailable KARINA, DR AKERS Consulting Unavailable OSWALD COLLINS Attending Unavailable KARINA, OSWALD Attending Unavailable OSWALD COLLINS Attending Unavailable OSWALD COLLINS Attending Unavailable Jose Larson Primary Care Unavailable Jose Larson Attending Unavailable Jose Larson MD Primary Care Provider Oswald Collins DO Attending Provider Jose Larson MD Primary Care Provider OSWALD COLLINS Attending Unavailable OSWALD COLLINS Attending Unavailable Allergies Allergy Classification Reported Allergen(s) Allergy Type Date of Onset Reaction(s) Facility (2 sources) Levamisole; Translations: [Phenergan] Drug Allergy 12-12-2016 [facility] Repository (6 sources) Promethazine; Translations: [promethazine] Drug Allergy 02-22-2017 [facility] Repository Medications Current Medications Medication Drug Class(es) Dates Sig (Normalized) Sig (Original) levonorgestrel 0.487730 mg/hr intrauterine system (5 sources) Progestin, Progestin-containi ng Intrauterine Device Start: 11-15-2023 End: 11-13-2028 Levonorgestrel intrauterine device 52 mg Problems Problem Classification Problem Date Documented Date Episodic/Chronic Immunizations and screening for infectious disease (1 source) Encounter for screening for human papillomavirus (HPV); Translations: [ENC SCREENING HUMAN PAPILLOMAVIRUS] Onset: 03-06-2022 Episodic Other screening for suspected conditions (not mental disorders or infectious disease) (10 sources) Encounter for screening mammogram for malignant neoplasm of breast; Translations: [Encounter for screening for malignant neoplasm of cervix] Onset: 03-01-2022 Episodic Other skin disorders (1 source) Skin tag; Translations: [Other hypertrophic disorders of the skin] 04-21-2024 Episodic Residual codes; unclassified (1 source) Family history of malignant neoplasm of breast; Translations: [FAMILY HX MALIG NEOPLASM OF BREAST] Onset: 03-18-2022 Episodic Results Test Name Value Interpretation Reference Range Facility IGP,APTIMA HPV,AGE GDLNon AGE GDLN ACOG TESTING Note . [facility] Comment on above: TESTS RESULT FLAG UN ITS REF RANGE LAB Clinician Provided Cytology Information Source.............Cervix;Endocervix No. of containers..01 ThinPrep Vial Age Algo ACOG Olya... 3065 FLAG LEGEND: L-Low Normal,H-High Normal,LL-Alert Low,HH-Alert High <-Panic Low,>-Panic High,A-Abnormal,AA-Critical Abnormal Performed at: 01 =G [facility] [place] [address] Jeri Zapata MD, HPV APTIMA Negative Negative [facility] e Comment on above: This nucleic acid am plification test detects fourteen high- risk HPV types (16,18,31,33,35,39,45,51,52,56,58,59,66,68) without differentiation. Performed at: =G - [facility], [place] [id number] Cold Type Composing Machine Operator: Jeri Zapata MD, Phone: [phone] Performed at: - [facility] [address], [place] [id number] Cold Type Composing Machine Operator: Jeri Zapata MD, Phone: [phone] IGP, APTIMA HPV, RFX 16/18,45 Note . [facility] Comment on above: TESTS RESULT FLAG UN ITS REF RANGE LAB DIAGNOSIS: 02 NEGATIVE FOR INTRAEPITHELIAL LESION OR MALIGNANCY. Specimen adequacy: 02 Satisfactory for evaluation. Endocervical and/or squamous metaplastic cells (endocervical component) are present. Performed by: Shivani Khan Overweaver (ASCP) . 02 Note: Note 02 The Pap smear is a screening test designed to aid in the detection of premalignant and malignant conditions of the uterine cervix. It is not a diagnostic procedure and should not be used as the sole means of detecting cervical cancer. Both false-positive and false-negative reports do occur. Test Methodology: Note 02 This liquid based ThinPrep(R) pap test was screened with the use of an image guided system. HPV Genotype Reflex Note 02 Criteria not met, HPV Genotype not performed. FLAG LEGEND: L-Low Normal,H-High Normal,LL-Alert Low,HH-Alert High <-Panic Low,>-Panic High,A-Abnormal,AA-Critical Abnormal Performed at: 02 WB [facility] [address] [place] [address] Jeri Zapata MD, BRUSH-SPATULA CERVIX ENDOCERVIX CLINISYMS [facility] MAMM SCREEN 3D JUSTINA CADon 03-14-2022 MG MAMM SCREEN 3D JUSTINA CAD Patient: MARTINA PACK Exam Date: 03/14/2022 : 1985 Gender:F Ordering : DR OSWALD COLLINS . Admission #: [id number] Family : Order #: [id number] CLICK HERE TO VIEW EXAM RADIOLOGY REPORT [...] breast cancer at age 40. LOCATION: [facility] BREAST COMPOSITION: Extremely dense, which lowers [...] Sabillon M.D. on 03/15/2022 at 07:35 Normal [facility] PAP ACOG PANEL 2: 30 to 65on 03-10-2022 . . Normal [facility] Comment on above: Result Comment: Perf ormed at: WB Performed By: #### 4 [id number] #### [facility] [address] [address] [address] Yosef Mcdonough Age Gdln ACOG Testing 30-65 Normal [facility] Comment on above: Performed By: #### 4 [id number] #### [facility] [address] [address] [address] Yosef Mcdonough DIAGNOSIS: Comment Abnormal [facility] Comment on above: Result Comment: EPIT HELIAL CELL ABNORMALITY. ATYPICAL SQUAMOUS CELLS OF UNDETERMINED SIGNIFICANCE (ASC-US). Performed at: WB Performed By: #### 4 [id number] #### [facility] [address] [address] [address] Yosef Mcdonough Electronically signed by: Comment Normal [facility] Comment on above: Result Comment: Deyanira Valdovinos MD, Pathologist Performed at: WB Performed By: #### 4 [id number] #### [facility] [address] [address] [address] Yosef Mcdonough HPV Aptima Negative Normal Negative [facility] Comment on above: Result Comment: This nucleic acid amplification test detects fourteen high-risk HPV types (16,18,31,33,35,39,45,51,52,56,58,59,66,68) without differentiation. Performed at: =G Performed By: #### 4 [id number] #### [facility] [address] [place] [address] Dr. Yosef Mcdonough HPV Genotype Reflex Comment Normal [facility] Comment on above: Result Comment: Crit eria not met, HPV Genotype not performed. Performed at: WB Performed By: #### 4 [id number] #### [facility] [address] [place] [address] Dr. Yosef Mcdonough Methodology: Comment Normal [facility] Comment on above: Result Comment: This liquid based ThinPrep(R) pap test was screened with the use of an image guided system. Performed at: WB Performed By: #### 4 [id number] #### [facility] [address] [place] [address] Dr. Yosef Mcdonough Note: Comment Normal [facility] Comment on above: Result Comment: The Pap smear is a screening test designed to aid in the detection of premalignant and malignant conditions of the uterine cervix. It is not a diagnostic procedure and should not be used as the sole means of detecting cervical cancer. Both false-positive and false-negative reports do occur. . Performed at: WB Performed By: #### 4 [id number] #### [facility] [address] [address] [address] Yosef Mcdonough Pathologist Provided ICD10 Comment [facility] Comment on above: Result Comment: R87. [id number] Performed at: WB Performed By: #### 4 [id number] #### [facility] [address] [address] [address] Yosef Mcdonough Performed by: Comment Normal [facility] Comment on above: Result Comment: Ema Barrera Overweaver (ASCP) Performed at: WB Performed By: #### 4 [id number] #### [facility] [address] [address] [address] Yosef Mcdonough Recommendation: Comment Abnormal [facility] Comment on above: Result Comment: Sugg est follow up as clinically appropriate. Performed at: WB Performed By: #### 4 [id number] #### [facility] [address] [address] [address] Yosef Mcdonough Specimen adequacy: Comment Normal [facility] Comment on above: Result Comment: Sati sfactory for evaluation. No endocervical component is identified. Performed at: WB Performed By: #### 4 [id number] #### [facility] [address] [address] [address] Yosef Mcdonough Coding Summary.on 11-19-2019 Coding Summary. CODING DATE: 11/19/2019 FINAL [facility] STATUS: Home (Routine DC) PAYOR: Medical [place] [facility] DESCRIPTION 5373 Level 3 Urology and [...] Emilia Carrillo Date Saved: 11/19/2019 12:36 pm [facility] Consent for Procedure/Surger yon 11-19-2019 Consent for Procedure/Surgery [id number]# 1.00CD:127 [facility] Discharge Instructionson Discharge Instructions [id number]# 1.00CD:127 [facility] IntraOperative Documentson 0 11-19-2019 IntraOperative Documents [id number]# 1.00CD:127 [facility] Lab Reportson 11-19-2019 Lab Reports [id number] .00CD:127 [facility] Consent for Treatmenton 11-07 Consent for Treatment [id number] .00CD:127 [facility] Main OR Intraoperative Recor don 11-18-2019 Main OR Intraoperative Record IntraOp Document Type FTURO Summary Primary Physician: Twan RODRIGUEZ MD Finalized Date/Time: 11/18/19 15:33:41 Pt. Name: MARTINA PACK/Sex: 1985 Female Med Rec #: [id number] Physician: Twan RODRIGUEZ MD Financial #: [id number] Pt. Type: O Room/Bed: / Admit/Disch: 11/18/19 14:46:18 - Institution: Case Times FTURO Entry 1 Patient Times In Room 11/18/19 15:20:00 Out Room 11/18/19 15:35:00 Procedure Times Start 11/18/19 15:29:00 Stop 11/18/19 15:31:00 Anesthesia Times Last Modified By: Anita RN, MIRIAMOR, Tanya Hernandez 11/18/19 15:33:13 Case Attendance FTURO Entry 1 Entry 2 Entry 3 Case Attendee Twan RODRIGUEZ MD RN, MIRIAMOR, Tanya Zamorano PRODUCT ARCHITECT, Josiane Role Performed Surgeon - Primary Mechanical Integrity Specialist - Primary Scrub - Primary Time In 11/18/19 15:27:00 11/18/19 15:20:00 11/18/19 15:20:00 Time Out 11/18/19 15:35:00 11/18/19 15:35:00 11/18/19 15:35:00 Procedure CYSTOSCOPY LOCAL WITH CYSTOSCOPY LOCAL WITH CYSTOSCOPY LOCAL WITH STENT REMOVAL(Right) STENT REMOVAL(Right) STENT REMOVAL(Right) Comments Last Modified By: MIRIAM Howard RNORTanya RN, CNOR, Lou Ann Blank RN, CNOR, [...] Out Twan RODRIGUEZ MD, Verified (If Participants Anita CARMICHAEL, MIRIAMOR, Tanya Applicable) Lona Hernandez CST, Josiane Time Out [...] Howard RN, Lou Ann 11/18/19 15:33 Normal [facility] Main OR Preoperative Recordo n 11-18-2019 Main OR Preoperative Record Holding Area Document Type FTURO Summary Primary Physician: Twan RODRIGUEZ MD Finalized Date/Time: 11/18/19 15:24:21 Pt. Name: MARTINA PACK/Sex: 1985 Female Med Rec #: [id number] Physician: Twan RODRIGUEZ MD Financial #: [id number] Pt. Type: O Room/Bed: / Admit/Disch: 11/18/19 [...] Howard RN, Lou Ann 11/18/19 15:24 Normal [facility] Operative Reporton 0 Operative Report Patient: [...] procedure well and was subsequently discharged home. Normal [facility] Comment on above: Result Comment: Elec tronically Signed By: Twan RODRIGUEZ MD\.br\Date and Time Signed: 11/18/19 15:34 EDT Lab Reportson 11-07-2019 Lab Reports [id number] .00CD:127 Normal [facility] Operative Reporton 0 Operative Report [id number]#1. 00CD:127 [facility] Formson 11-05-2019 Forms [id number] .00CD:127 [facility] Lab Reportson 11-05-2019 Lab Reports [id number] .00CD:127 Normal [facility] RAD - CT Reporton 11-05-2019 RAD - CT Report [id number]. 00CD:127 [facility] RAD - MISCon 11-05-2019 RAD - MISC [id number] .00CD:127 [facility] Formson 11-04-2019 Forms [id number]#1. 00CD:127 [facility] Ambulatory Clinical Summaryo n 11-03-2019 Ambulatory Clinical Summary {[id number]}CD:[id number] [facility] Patient Educationon 11-03-19 20 Patient Education [...] Document Reviewed: 01/21/2010 ExitCare? Patient Information ?2013 [employer]. Normal [facility] RAD - MISCon 11-03-2019 RAD - MISC [id number]. 00CD:127 Normal [facility] Urology Office/Clinic Noteon 11-03-2019 Urology Office/Clinic Note Chief Complaint f/u to [place] [facility] HPI Staff Pt here as a new Pt, following up to [place] [facility] visit on 10/28 due to kidney stones. Pt had CT done while in the ER and KUB done today at [place]. Pt states that she did strain her [...] report and KUB report and film. Reviewed [employer] paperwork. There have been no associated fever, [...] With When Contact Information Twan RODRIGUEZ MD [address] [place] [phone] Additional Instructions: Patient Education Kidney Stones, [id number] I, Lula Bajwa , personally scribed for [...] Urine Dip (more content not included)... Normal [facility] Comment on above: Result Comment: Elec tronically Signed By: Twan RODRIGUEZ MD\.br\Date and Time Signed: 11/03/19 13:07 EDT\.br\Electronically Co-Signed By: Lula Bajwa MA\.br\Date and Time Co-Signed: 11/03/19 12:59 EDT Vital Signs Date Time Vital Sign Value Performing Clinician Faci lity 04-21-2024 15:35-0500 Body mass index (BMI) [Ratio] 27.48 kg/m2 Oswald Karina DO Work Phone: [facility] 04-21-2024 15:35-0500 Body weight 72.63 kg Oswald Karina DO Work Phone: [facility] 04-21-2024 15:35-0500 Diastolic blood pressure 70 mm[Hg] Oswald Karina DO Work Phone: [facility] 04-21-2024 15:35-0500 Systolic blood pressure 110 mm[Hg] Oswald Karina DO Work Phone: [facility] 03-24-2024 16:45-0500 Body mass index (BMI) [Ratio] 27.29 kg/m2 Oswald Karina DO Work Phone: [facility] 03-24-2024 16:45-0500 Body weight 72.12 kg Oswald Karina DO Work Phone: [facility] 03-24-2024 16:45-0500 Diastolic blood pressure 72 mm[Hg] Oswald Karina DO Work Phone: [facility] 03-24-2024 16:45-0500 Systolic blood pressure 118 mm[Hg] Oswald Karina DO Work Phone: [facility] Healthcare Encounters Encounter Date Encounter Type Care Provider Facility Start: 04-21-2024 End: 04-21-2024 Departed Referred Jose Larson MD Work Phone: [facility] [place] Work Phone: Start: 04-21-2024 End: 04-21-2024 Patient encounter procedure Oswald Karina DO Work Phone: [facility] Comment on above: Skin tag Start: 04-21-2024 End: 04-21-2024 ambulatory Jose Larson MD Work Phone: [facility] Work Phone: Start: 03-24-2024 End: 03-24-2024 ambulatory OSWALD KARINA Not Available Start: 03-24-2024 End: 03-24-2024 Patient encounter procedure Oswald Karina DO Work Phone: [facility] Start: 03-24-2024 End: 03-24-2024 Periodic preventive med est patient 40-64yrs Oswald Karina DO Work Phone: [facility] Comment on above: Well woman exam with routine gynecological exam; Breast cancer screening by mammogram Start: 03-24-2024 End: 03-24-2024 Bamboo flowsheet Oswald Karina DO Work Phone: [facility] Start: 03-24-2024 End: 03-31-2024 Bamboo flowsheet Oswald Karina DO Work Phone: [facility] Start: 03-24-2024 End: 03-31-2024 Clinisync Result Encounter Oswald Karina DO Work Phone: [facility] Unsolicited Start: 03-11-2024 End: 03-11-2024 ambulatory Jose Larson Facility:[facility] Start: 11-15-2023 End: 11-15-2023 ambulatory OSWALD KARINA Not Available Start: 10-08-2023 End: 10-08-2023 ambulatory OSWALD KARINA Not Available Start: 04-18-2023 End: 04-18-2023 ambulatory OSWALD KARINA Not Available Start: 03-12-2023 End: 03-12-2023 ambulatory OSWALD KARINA Not Available Start: 03-14-2022 End: 03-15-[address] OSWALD COLLINS Facility:[facility] Start: 03-01-2022 End: 03-01-[address] OSWALD COLLINS Facility:[facility] Procedures Date Procedure Procedure Detail Performing Clinician Start: 03-24-2024 IGP,APTIMA HPV,AGE GDLN Oswald Karina DO Work Phone: Plan of Treatment Date Care Activity Detail Author Start: 03-30-2025 End: 03-30-2025 Patient encounter procedure 03/30/2025 9:00 AM EST Office Visit [facility] [address] [id number] Oswald Collins, DO [address] [place] [address] [facility] Start: 04-21-2024 End: 04-21-2024 Patient encounter procedure 04/21/2024 3:30 PM EST Procedure Visit [facility] [address] [phone] Oswald Collins, DO [address] [place] [address] [facility] Start: 03-24-2024 End: 05-25-2025 MG Breast - bilateral Screening Bilateral screening mammogram Imaging Routine Breast cancer screening by mammogram Expected: 03/24/2024 (Approximate), Expires: 05/25/2025 [facility] Work Phone: Comment on above: Expected: 03/24/2024 (Approximate), Expires: 05/25/2025 THIN PREP TIS PAP AN D HR HPV DNA THIN PREP TIS PAP AND HR HPV DNA Pathology and Cytology Routine Well woman exam with routine gynecological exam Ordered: 03/24/2024 [facility] Comment on above: Ordered: 03/24/2024 Payers Date Payer Category Payer Private Health Insurance [employer] [id number] 1985 Unknown [id number] 593 1985 Unknown [id number]. 593 1985 Unknown [id number]. 1259 1985 Unknown [id number]. 1259 1985 Unknown [id number] [id number]. 1259 1985 Unknown [id number]. 1259 1985 Unknown [id number] [id number]. 718 1985 Unknown [id number]. 1259 1985 Unknown [id number]. 1259 1959 Unknown [id number] Social History Date Type Detail Facility Start: 02-28-2023 Tobacco smoking stat [facility] Ex-smoker [facility] Healthcare History of tobacco use Current smoker [facility] History of tobacco use [facility] Start: 11-15-2023 End: 04-21-2024 Alcoholic beverage intake Current drinker of alcohol (finding) [facility] Start: 02-28-2023 End: 10-08-2023 History of Social function [facility] Start: 02-28-2023 End: 10-08-2023 Tobacco use panel [facility] Healthcare Start: 02-28-2023 Alcohol Comment Moderate alcohol use [facility] Healthcare Start: 1985 Sex assigned at Not on file N [facility] Tobacco smoking stat [facility] Unknown if ever smoked [facility] Work Phone: Start: 04-23-2024 Sex Female (finding) [facility] Start: 1985 Sex Assigned At Female F [facility] History of Present illness Narrative 04-21-2024 Dary White, PLASTIC EXTRUSION OPERATOR - 04/21/2024 3:30 PM EST Note Date & Type Note Facility 04-21-2024 History of Presen t illness Narrative Reason for Appointment: Patient ID: Martina Pack is a 39 y.o. female who presents for skin tags Patient presents today for Consult appointment. MEDICATIONS No current outpatient medications ALLERGIES Allergies Allergen Reactions Promethazine Other Other Reaction(s): Shakes Muscle spasms PROBLEMS Active Ambulatory Problems Diagnosis Date Noted No Active Ambulatory Problems Resolved Ambulatory Problems Diagnosis Date Noted No Resolved Ambulatory Problems Past Medical History: Diagnosis Date BMI 25.0-25.9,adult Depression screening Well woman exam 03/01/2022 HISTORY PAST MEDICAL HISTORY SOCIAL HISTORY Past Medical History: Diagnosis Date BMI 25.0-25.9,adult Depression screening Well woman exam 03/01/2022 ascus hpv- Social History Tobacco Use Smoking status: Former Types: Cigarettes Smokeless tobacco: Not on file Substance Use Topics Alcohol use: Yes Comment: Moderate alcohol use Drug use: Never FAMILY HISTORY Family History Problem Relation Name Age of Onset Hypertension Mother Diabetes Maternal Grandmother Hypertension Maternal Grandmother Stroke Maternal Grandmother CVA (cerebral infarction) Diabetes Maternal Grandfather Hyperlipidemia Maternal Grandfather SURGICAL HISTORY Past Surgical History: Procedure Laterality Date APPENDECTOMY 05/29/2011 CERVICAL BIOPSY W/ LOOP ELECTRODE EXCISION 04/2008 SECTION, LOW TRANSVERSE 08/06/2007 SECTION, LOW TRANSVERSE 07/03/2017 REVIEW OF SYSTEMS Review of Systems: Review of Systems All other systems reviewed and are negative. OBJECTIVE Objective: Physical Exam Constitutional: Appearance: Normal appearance. She is well-developed. Genitourinary: Genitourinary Comments: Mole removed from under right breast near wire line of bra. Cardiovascular: Rate and Rhythm: Normal rate and regular rhythm. Pulmonary: Effort: Pulmonary effort is normal. Breath sounds: Normal breath sounds. Abdominal: General: Bowel sounds are normal. There is no distension. Palpations: Abdomen is soft. Tenderness: There is no abdominal tenderness. There is no guarding or rebound. Musculoskeletal: General: No swelling. Normal range of motion. Right lower leg: No edema. Left lower leg: No edema. Neurological: Mental Status: She is alert and oriented to person, place, and time. Skin: General: Skin is warm and dry. Psychiatric: Mood and Affect: Mood normal. Behavior: Behavior normal. Vitals and nursing note reviewed. Exam conducted with a field worker present. Vitals: Estimated body mass index is 27.48 kg/m as calculated from the following: Height as of 03/01/22: 5' 4 . Weight as of this encounter: 160 lb 1.9 oz. BP: 110/70 No LMP recorded. Patient has had an implant. ASSESSMENT & PLAN ICD-10-CM 1. Skin tag L91.8 Patient presents today for mole removal. Area was numbed with Lidocaine without Epi. Mole/skin tag removed and sent to pathology. Patient will be made aware of results once back. Patient to return to clinic for annual appointment and PRN. Documented by Dary White LPN on behalf of: Oswald Collins DO documented in this encounter [facility] History of Present illness Narrative 03-24-2024 Yareli Ambrocio MA - 03/24/2024 4:00 PM EST Note Date & Type Note Facility 03-24-2024 History of Presen t illness Narrative Reason for Appointment: Patient ID: Martina Pack is a 39 y.o. female who presents for Gynecologic Exam Patient presents today for Annual Exam. MEDICATIONS No current outpatient medications ALLERGIES Allergies Allergen Reactions Promethazine Other Other Reaction(s): Shakes Muscle spasms PROBLEMS Active Ambulatory Problems Diagnosis Date Noted No Active Ambulatory Problems Resolved Ambulatory Problems Diagnosis Date Noted No Resolved Ambulatory Problems Past Medical History: Diagnosis Date BMI 25.0-25.9,adult Depression screening Well woman exam 03/01/2022 HISTORY PAST MEDICAL HISTORY SOCIAL HISTORY Past Medical History: Diagnosis Date BMI 25.0-25.9,adult Depression screening Well woman exam 03/01/2022 ascus hpv- Social History Tobacco Use Smoking status: Former Types: Cigarettes Smokeless tobacco: Not on file Substance Use Topics Alcohol use: Yes Comment: Moderate alcohol use Drug use: Never FAMILY HISTORY Family History Problem Relation Name Age of Onset Hypertension Mother Diabetes Maternal Grandmother Hypertension Maternal Grandmother Stroke Maternal Grandmother CVA (cerebral infarction) Diabetes Maternal Grandfather Hyperlipidemia Maternal Grandfather SURGICAL HISTORY Past Surgical History: Procedure Laterality Date APPENDECTOMY 05/29/2011 CERVICAL BIOPSY W/ LOOP ELECTRODE EXCISION 04/2008 SECTION, LOW TRANSVERSE 08/06/2007 SECTION, LOW TRANSVERSE 07/03/2017 REVIEW OF SYSTEMS Review of Systems: Review of Systems All other systems reviewed and are negative. OBJECTIVE Objective: Physical Exam Constitutional: Appearance: Normal appearance. She is well-developed. Genitourinary: Vulva normal. Breasts: Breasts are soft. Right: Normal. Left: Normal. Cardiovascular: Rate and Rhythm: Normal rate and regular rhythm. Pulmonary: Effort: Pulmonary effort is normal. Breath sounds: Normal breath sounds. Abdominal: General: Bowel sounds are normal. There is no distension. Palpations: Abdomen is soft. Tenderness: There is no abdominal tenderness. There is no guarding or rebound. Musculoskeletal: General: No swelling. Normal range of motion. Right lower leg: No edema. Left lower leg: No edema. Neurological: Mental Status: She is alert and oriented to person, place, and time. Skin: General: Skin is warm and dry. Psychiatric: Mood and Affect: Mood normal. Behavior: Behavior normal. Vitals and nursing note reviewed. Exam conducted with a field worker present. Vitals: Estimated body mass index is 27.29 kg/m as calculated from the following: Height as of 03/01/22: 5' 4 . Weight as of this encounter: 159 lb. BP: 118/72 No LMP recorded. Patient has had an implant. ASSESSMENT & PLAN ICD-10-CM 1. Well woman exam with routine gynecological exam Z01.419 THIN PREP TIS PAP AND HR HPV DNA 2. Breast cancer screening by mammogram Z12.31 Bilateral screening mammogram Bilateral screening mammogram Annual: Patient presents today for an annual exam. Patient states she is doing well and has no complaints. Pap was obtained without difficulty and patient given mammogram order to have scheduled/obtained. Orders Placed This Encounter Procedures Bilateral screening mammogram Follow Up: Patient is to return in one year for annual unless needed otherwise. Documented by Yareli Ambrocio MA on behalf of: Oswadl Collins DO documented in this encounter [facility] History and physical note 11-19-2019 Note Date & Type Note Facility 11-19-2019 Note [id number] 1#[id number] [facility] Clinical Note 11-18-2019 Note Date & [...] you have a fever over 100 degrees. [facility] Evaluation note Note Date & Type Note Facility Evaluation note Diagnosis Well woman exam with routine gynecological exam Routine gynecological examination Breast cancer screening by mammogram documented in this encounter [facility] Evaluation note Note Date & Type Note Facility Evaluation note Diagnosis Skin tag Unspecified hypertrophic and atrophic condition of skin documented in this encounter [facility] Healthcare Evaluation note Note Date & Type Note Facility Evaluation note [facility]: Summary Purpose Family History No Family History Records FoundNo Family History Records FoundNo Family History Records FoundNo Family History Records FoundNo Family History Records Found Advance Directives No Advanced Directives Records Found Advance Directive Response Recorded Date/ Time Advance Directives No April 22, 2024 4:51pm Chief Complaint and Reason for Visit Chief Complaint Admit Date Skin tag/mole April 21, 2024 3 :40pm Additional Source Comments INFORMATION SOURCE (unrecogn ized section and content) DATE CREATED AUTHOR 07/28/2020 [facility] DATE CREATED AUTHOR AUTHOR'S ORGANIZ ATION 03/18/2022 [facility] DATE CREATED AUTHOR AUTHOR'S ORGANIZ ATION 11/17/[address] [facility] DATE CREATED AUTHOR AUTHOR'S ORGANIZ ATION 03/13/2024 [facility] DATE CREATED AUTHOR AUTHOR'S ORGANIZ ATION 04/25/[address] [facility] [employer] Care Teams (unrecognized sec tion and content) Protohistorian Relationship Specialty [place] [id number] [facility] [address] [place] [address] PCP - General Family Medicine 03/12/23 Protohistorian Relationship Specialty [place] [id number] [facility] [address] [place] [address] PCP - General Family Medicine 03/12/23 Protohistorian Relationship Specialty [place] [address] [facility] [address] [place] [address] PCP - General Family Medicine 03/12/23 Protohistorian Relationship Specialty [place] [id number] [facility] [address] [place] [address] PCP - General Family Medicine 03/12/23 Team Status: Active Member Role Status Dates Jose Larson MD Primary Care Provider Active Team Status: Inactive Member Role Status Dates Oswald Collins DO Attending Provider Active Start : April 21, 2024 End: April 21, 2024 Jose Larson MD Primary Care Provider Active S tart: April 21, 2024 End: April 21, 2024 Reason for Visit (unrecogniz ed section and content) Reason Comments Gynecologic Exam Reason Comments skin tags Goals (unrecognized section and content) Goals may be documented in a n alternate section FOR RECORDS PERTAINING TO PATIENTS WHO ARE [...] BE BASED ON THE PRIMARY CLINICAL RECORDS. [facility], [facility]. provides no warranty or guarantee of the accuracy or completeness of information in this document.
== END 2024-04-21 10:24 | disposition home or self-care (01) ==
LOC: LAB 10:23
PROVIDERS: Visit Provider Obstetrics & Gynecology
DX: L91.8 Other hypertrophic disorders of the skin (principal); C44.91 Basal cell carcinoma of skin, unspecified
CPT/HCPCS: 88305

== ENCOUNTER 2024-05-01 08:26 | Outpatient (REF) | payer OTHER, SELFPAY ==
--- OUTSIDE RECORDS SUMMARY | 2024-05-02 08:31 | XMS_ITS | CCD ---
Author Organization [facility] Care Team Providers Care Apartment Groundskeeper Name Role Phone DR OSWALD COLLINS Admitting Unavailable KARINA, DR AKERS Attending Unavailable MISC, DR BRIDGES Primary Care Unavailable KARINA, DR AKERS Consulting Unavailable ZIEBER, DR MADAN Briggs Consulting Unavailable KARINA, DR AKERS Admitting Unavailable KARINA, DR AKERS Attending Unavailable MISC, DR BRIDGES Primary Care Unavailable KARINA, DR AKERS Consulting Unavailable OSWALD COLLINS Attending Unavailable KARINA, OSWALD Attending Unavailable KARINA, OSWALD Attending Unavailable KARINA, OSWALD Attending Unavailable Jose Larson Primary Care Unavailable Jose Larson Attending Unavailable Jose Larson MD Primary Care Provider [phone] Oswald Collins DO Attending Provider Jose Larson MD Primary Care Provider [phone] OSWALD COLLINS Attending Unavailable OSWALD COLLINS Attending Unavailable Jose Larson Primary Care Unavailable Oswald Collins Attending Unavailable Oswald Collins Admitting Unavailable Allergies Allergy Classification Reported Allergen(s) Allergy Type Date of Onset Reaction(s) Facility (2 sources) Levamisole; Translations: [Phenergan] Drug Allergy 12-12-2016 [facility] Repository (9 sources) Promethazine; Translations: [promethazine] Drug Allergy 02-22-2017 [facility] Repository Medications Current Medications Medication Drug Class(es) Dates Sig (Normalized) Sig (Original) cephalexin 500 mg oral capsule (2 sources) Cephalosporin Antibacterial Start: 05-01-2024 End: 05-08-2024 take 1 capsule by mouth in the morning cephalexin (Keflex) 500 MG capsule Indications: Skin infection Take 1 capsule (500 mg) by mouth in the morning and 1 capsule (500 mg) before bedtime. Do all this for 7 days. 14 capsule 05/01/2024 05/08/2024 Active levonorgestrel 0.474681 mg/hr intrauterine system (8 sources) Progestin, Progestin-containin g Intrauterine Device Start: 11-15-2023 End: 11-13-2028 Levonorgestrel intrauterine device 52 mg Problems Problem Classification Problem Date Documented Date Episodic/Chronic Immunizations and screening for infectious disease (1 source) Encounter for screening for human papillomavirus (HPV); Translations: [ENC SCREENING HUMAN PAPILLOMAVIRUS] Onset: 03-06-2022 Episodic Other non-epithelial cancer of skin (4 sources) Basal cell carcinoma of skin in situ; Translations: [Carcinoma in situ of skin, unspecified] Onset: 05-01-2024 05-01-2024 Episodic Other screening for suspected conditions (not mental disorders or infectious disease) (10 sources) Encounter for screening mammogram for malignant neoplasm of breast; Translations: [Encounter for screening for malignant neoplasm of cervix] Onset: 03-01-2022 Episodic Other skin disorders (1 source) Skin tag; Translations: [Other hypertrophic disorders of the skin] 04-21-2024 Episodic Other skin disorders (1 source) Other hypertrophic disorders of the skin; Translations: [Other hypertrophic disorders of the skin] Onset: 04-21-2024 Episodic Residual codes; unclassified (1 source) Family history of malignant neoplasm of breast; Translations: [FAMILY HX MALIG NEOPLASM OF BREAST] Onset: 03-18-2022 Episodic Skin and subcutaneous tissue infections (2 sources) Infection of skin; Translations: [Local infection of the skin and subcutaneous tissue, unspecified] 05-01-2024 Episodic Results Test Name Value Interpretation Reference Range Facility [place] 04-21-2024 L - -------- Specimen: [id number] Received: 04/23/24 Status: ISABEL Jesus Num: [id number] Spec Type: Surgical Subm Dr: Oswald Collins Tissues: A Skin Tag or debridement (SKIN TAG/MOLE RT UNDER BREAS) Procedures: HE, Gross/Micro L3 -------- Age/ Patient Sex Location Account Attending Physician -------- Martina Pack 39/F JONAS [id number] Oswald Collins -------- SPEC NUM: [id number] RECD: 04/23/24 STATUS: ISABEL JESUS NUM: [id number] NATALIE: 04/21/240 [facility] DR: Oswald Collins ENTERED: 04/23/[address] [facility] [address]: Nicolás Cannon SPEC TYPE: Surgical DEPT: NICHOLAS SEGOVIA ENTERED BY: [id number] RECV BY: [id number] ORDERED: HE, Gross/Micro L3 ORDERED: HE, Gross/Micro L3 Pathological Diagnosis Skin lesion, under right breast, biopsy: Basal cell carcinoma, infiltrative type. Margins are clear. Clinical Information Skin tag mole Gross Description Part A is received in formalin labeled with the patients name and date of is a caldwell- bhagat, finely granular, 0.5 x 0.4 x 0.3 cm polypoid-like portion of skin. The specimen is inked black at the apparent point of attachment, bisected, and entirely submitted in a single cassette. Fixation Time: Time specimen extracted: 1540 on 04/21/2024 Time specimen placed in formalin: 1540 on 04/21/2024 Cold ischemic time: Less than 1 minute Total fixation time: 50 hours on 04/23/2024 (1, edwige, BS A) MEAGHAN -------- Specimen: BS Received: 04/23/24 Status: ISABEL Jesus Num: [id number] Spec Type: Surgical Subm Dr: Oswald Collins Tissues: A Skin Tag or debridement (SKIN TAG/MOLE RT UNDER BREAS) Procedures: STEPHEN, Gross/Reanna L3 -------- Patient: Martina Pack [id number] (Continued) -------- Specimen: [id number] Received: 04/23/24 (Continued) Signed (signature on file) Stanley Kim MD 04/24/24 1513 -------- Specimen: [id number] Received: 04/23/24 Status: ISABEL Jesus Num: [id number] Spec Type: Surgical Subm Dr: Oswald Collins Tissues: A Skin Tag or debridement (SKIN TAG/MOLE RT UNDER BREAS) Procedures: Chiki MITCHELL/Reanna L3 -------- Patient: Martina Pack [id number] (Continued) -------- Specimen: [id number] Received: 04/23/24 (Continued) CPT Codes 92737 -------- -------- Specimen: [id number] Received: 04/23/24 Status: ISABEL Jesus Num: [id number] Spec Type: Surgical Subm Dr: Oswald Collins Tissues: A Skin Tag or debridement (SKIN TAG/MOLE RT UNDER BREAS) Procedures: STEPHEN, Chiki/Reanna L3 -------- Patient: Martina Pack [id number] (Continued) -------- Signed (signature on file) Stanley Kim MD 04/24/24 6493 Normal [facility] IGP,NICHOLAS HPV,AGE GDLNon AGE GDLN ACOG TESTING Note . [facility] Comment on above: TESTS RESULT FLAG UN ITS REF RANGE LAB Clinician Provided Cytology Information Source.............Cervix;Endocervix No. of containers..01 ThinPrep Vial Age Bri RAMIREZ Olya... FLAG LEGEND: L-Low Normal,H-High Normal,LL-Alert Low,HH-Alert High <-Panic Low,>-Panic High,A-Abnormal,AA-Critical Abnormal Performed at: 01 =G [address] [address] Jeri Zapata MD, HPV APTIMA Negative Negative [facility] Comment on above: This nucleic acid am plification test detects fourteen high- risk HPV types (16,18,31,33,35,39,45,51,52,56,58,59,66,68) without differentiation. Performed at: =G - [address] [id number] Director Of Physician Practices: Jeri Zapata MD, Phone: [phone] Performed at: - [address] [id number] Director Of Physician Practices: Jeri Zapata MD, Phone: [phone] IGP, APTIMA HPV, RFX 16/18,45 Note . [facility] Comment on above: TESTS RESULT FLAG UN ITS REF RANGE LAB DIAGNOSIS: 02 NEGATIVE FOR INTRAEPITHELIAL LESION OR MALIGNANCY. Specimen adequacy: 02 Satisfactory for evaluation. Endocervical and/or squamous metaplastic cells (endocervical component) are present. Performed by: Shivani Khan Irrigation Manager ([facility]) . 02 Note: Note 02 The Pap [...] Low,>-Panic High,A-Abnormal,AA-Critical Abnormal Performed at: [address] [address] Jeri Zapata MD, BRUSH-SPATULA CERVIX ENDOCERVIX [facility]M SCREEN 3D JUSTINA CADon 03-14-2022 MG MAMM SCREEN 3D JUSTINA CAD Patient: MARTINA PACK Exam Date: 03/14/2022 : 1985 Gender:F Ordering : DR OSWALD COLLINS . Admission #: [id number] Family : Order #: [id number] CLICK HERE TO VIEW EXAM RADIOLOGY REPORT [...] breast cancer at age 40. LOCATION: [facility] BREAST COMPOSITION: Extremely dense, which lowers [...] Sabillon M.D. on 03/15/2022 at 07:35 Normal [facility] PAP ACOG PANEL 2: 30 to 65on 03-10-2022 . . Normal [facility] Comment on above: Result Comment: Perf ormed at: WB Performed By: #### 4 [id number] #### [facility] [address] [address] [address] Yosef Mcdonough Age Gdln ACOG Testing 30-65 Normal [facility] Comment on above: Performed By: #### 4 [id number] #### [facility] [address] [address] [address] Yosef Mcdonough DIAGNOSIS: Comment Abnormal [facility] Comment on above: Result Comment: EPIT HELIAL CELL ABNORMALITY. ATYPICAL SQUAMOUS CELLS OF UNDETERMINED SIGNIFICANCE (ASC-US). Performed at: WB Performed By: #### 4 [id number] #### [facility] [address] [address] [address] Yosef Mcdonough Electronically signed by: Comment Normal [facility] Comment on above: Result Comment: Deaynira Valdovinos MD, Pathologist Performed at: WB Performed By: #### 4 [id number] #### [facility] [address] [address] [address] Yosef Mcdonough HPV Aptima Negative Normal Negative [facility] Comment on above: Result Comment: This nucleic acid amplification test detects fourteen high-risk HPV types (16,18,31,33,35,39,45,51,52,56,58,59,66,68) without differentiation. Performed at: =G Performed By: #### 4 [id number] #### [facility] [address] [place] [address] Dr. Yosef Mcdonough HPV Genotype Reflex Comment Normal [facility] Comment on above: Result Comment: Crit eria not met, HPV Genotype not performed. Performed at: WB Performed By: #### 4 [id number] #### [facility] [address] [place] [address] Dr. Yosef Mcdonough Methodology: Comment Normal [facility] Comment on above: Result Comment: This liquid based ThinPrep(R) pap test was screened with the use of an image guided system. Performed at: WB Performed By: #### 4 [id number] #### [facility] [address] [place] [address] Dr. Yosef Mcdonough Note: Comment Normal [facility] Comment on above: Result Comment: The Pap smear is a screening test designed to aid in the detection of premalignant and malignant conditions of the uterine cervix. It is not a diagnostic procedure and should not be used as the sole means of detecting cervical cancer. Both false-positive and false-negative reports do occur. . Performed at: WB Performed By: #### 4 [id number] #### [facility] [address] [place] [address] Dr. Yosef Mcdonough Pathologist Provided ICD10 Comment Normal [facility] Comment on above: Result Comment: R87. [id number] Performed at: WB Performed By: #### 4 [id number] #### [facility] [address] [place] [address] Dr. Yosef Mcdonough Performed by: Comment Normal [facility] Comment on above: Result Comment: Ema Barrera Irrigation Manager (ASCP) Performed at: WB Performed By: #### 4 [id number] #### [facility] [address] [place] [address] Dr. Yosef Mcdonough Recommendation: Comment Abnormal [facility] Comment on above: Result Comment: Sugg est follow up as clinically appropriate. Performed at: WB Performed By: #### 4 [id number] #### [facility] [address] [address] [address] Yosef Mcdonough Specimen adequacy: Comment Normal [facility] Comment on above: Result Comment: Sati sfactory for evaluation. No endocervical component is identified. Performed at: WB Performed By: #### 4 [id number] #### [facility] [address] [place] [address] Dr. Yosef Mcdonough Coding Summary.on 11-19-2019 Coding Summary. CODING DATE: 11/19/2019 FINAL [facility] STATUS: Home (Routine DC) PAYOR: [employer] DESCRIPTION 5373 Level 3 Urology and [...] Emilia Carrillo Date Saved: 11/19/2019 12:36 pm [facility] Consent for Procedure/Surger yon 11-19-2019 Consent for Procedure/Surgery [id number]# 1.00CD:127 [facility] Discharge Instructionson Discharge Instructions [id number]# 1.00CD:127 [facility] IntraOperative Documentson 0 11-19-2019 IntraOperative Documents [id number]# 1.00CD:127 [facility] Lab Reportson 11-19-2019 Lab Reports [id number]#1 .00CD:127 [facility] Consent for Treatmenton 11-07 Consent for Treatment [id number]#1 .00CD:127 Normal [facility] Main OR Intraoperative Recor don 11-18-2019 Main OR Intraoperative Record IntraOp Document Type FTURO Summary Primary Physician: Twan RODRIGUEZ MD Finalized Date/Time: 11/18/19 15:33:41 Pt. Name: MARTINA PACK /Sex: 1985 Female Med Rec #: [id number] Physician: Twan RODRIGUEZ MD Financial #: [id number] Pt. Type: O Room/Bed: / Admit/Disch: 11/18/19 14:46:18 - Institution: Case Times FTURO Entry 1 Patient Times In Room 11/18/19 15:20:00 Out Room 11/18/19 15:35:00 Procedure Times Start 11/18/19 15:29:00 Stop 11/18/19 15:31:00 Anesthesia Times Last Modified By: Anita CARMICHAEL, MIRIAMOR, Tanya Hernandez 11/18/19 15:33:13 Case Attendance FTURO Entry 1 Entry 2 Entry 3 Case Attendee Twan RODRIGUEZ MD RN, CNOR, Tanya Zamorano CST, Josiane Role Performed Surgeon - Primary Crane Oiler - Primary Scrub - Primary Time In [...] Howard RN, Lou Applicable) Lona Hernandez CST, Amber Time Out [...] Howard RN, Lou Ann 11/18/19 15:33 Normal [facility] Main OR Preoperative Recordo n 11-18-2019 Main OR Preoperative Record Holding Area Document Type FTURO Summary Primary Physician: Twan RODRIGUEZ MD Finalized Date/Time: 11/18/19 15:24:21 Pt. Name: MARTINA PACK /Sex: 1985 Female Med Rec #: [id number] Physician: Twan RODRIGUEZ MD Financial #: [id number] Pt. Type: O Room/Bed: / Admit/Disch: 11/18/19 [...] Howard RN, Lou Ann 11/18/19 15:24 Normal [facility] Operative Reporton 0 Operative Report Patient: [...] procedure well and was subsequently discharged home. [facility] Comment on above: Result Comment: Elec tronically Signed By: ROSALIE MARES, Twan Robert.br\Date and Time Signed: 11/18/19 15:34 EDT Lab Reportson 11-07-2019 Lab Reports [id number]#1 .00CD:127 [facility] Operative Reporton 0 Operative Report [id number]#1. 00CD:127 [facility] Formson 11-05-2019 Forms [id number]#1 .00CD:127 [facility] Lab Reportson 11-05-2019 Lab Reports [id number]#1 .00CD:127 [facility] RAD - CT Reporton 11-05-2019 RAD - CT Report [id number]#1. 00CD:127 [facility] RAD - MISCon 11-05-2019 RAD - MISC [id number]#1 .00CD:127 [facility] Formson 11-04-2019 Forms [id number]#1. 00CD:127 Normal [facility] Ambulatory Clinical Summaryo n 11-03-2019 Ambulatory Clinical Summary {[id number]}CD:[id number] Normal [facility] Patient Educationon 11-03-19 20 Patient Education [...] Document Reviewed: 01/21/2010 ExitCare? Patient Information ?2013 [employer]. Normal [facility] RAD - MISCon 11-03-2019 RAD - MISC [id number]#1. 00CD:127 Normal [facility] Urology Office/Clinic Noteon 11-03-2019 Urology Office/Clinic Note Chief Complaint f/u to [facility] HPI Staff Pt here as a new Pt, following up to [facility] visit on 10/28 due to kidney stones. Pt had CT done while in the ER and KUB done today at [facility]. Pt states that she did strain her [...] report and KUB report and film. 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 There have been no associated fever, [...] When Contact Information ROSALIE MARES, Twan Briggs [address] [place] [address] [place] [address]- [phone] Additional Instructions: Patient Education Kidney Stones, Lhcm-kf-Iutz ILula , personally scribed for Dr. Rodriguez on 11/03/2019 12:59:15. . Problem List/Past Medical History Ongoing Abdominal pain Flank pain Historical No qualifying data Procedure/Surgical History Appendectomy, Caesarean section. Medications Mirena 52 mg intrauteral device, 52 mg= 1 EA, IntraUteral, Once Zofran Allergies Phenergan (Twitching) Social History Tobacco 5-9 cigarettes (between 04/12 to 1/2 pack)/day in last 30 days [...] Urine Dip (more content not included)... Normal [facility] Comment on above: Result Comment: Elec tronically Signed By: Twan RODRIGUEZ MD\.br\Date and Time Signed: 11/03/19 13:07 EDT\.br\Electronically Co-Signed By: Lula Bajwa MA\.br\Date and Time Co-Signed: 11/03/19 12:59 EDT Vital Signs Date Time Vital Sign Value Performing Clinician Shanice saez 04-21-2024 15:35-0500 Body mass index (BMI) [Ratio] 27.48 kg/m2 [employer] Work Phone: [facility] 04-21-2024 15:35-0500 Body weight 72.63 kg [employer] Work Phone: [facility] 04-21-2024 15:35-0500 Diastolic blood pressure 70 mm[Hg] [employer] KarinaMacromill Work Phone: [facility] 04-21-2024 15:35-0500 Systolic blood pressure 110 mm[Hg] Oswald Karina DO Work Phone: [facility] 03-24-2024 16:45-0500 Body mass index (BMI) [Ratio] 27.29 kg/m2 [employer] Work Phone: [facility] 03-24-2024 16:45-0500 Body weight 72.12 kg Oswald Karina DO Work Phone: [facility] 03-24-2024 16:45-0500 Diastolic blood pressure 72 mm[Hg] Oswald Karina DO Work Phone: [facility] 03-24-2024 16:45-0500 Systolic blood pressure 118 mm[Hg] Oswald Karina DO Work Phone: [facility] Encounters Encounter Date Encounter Type Care Provider Facility Start: 05-01-2024 End: 05-01-2024 Bamboo flowsheet Oswald Karina DO Work Phone: [facility] Start: 05-01-2024 End: 05-01-2024 Bamboo flowsheet Oswald Karina DO Work Phone: [facility] Start: 05-01-2024 End: 05-01-2024 Office outpatient visit 15 minutes Oswald Karina DO Work Phone: [facility] Comment on above: Skin infection; Basal cell carcinoma (BCC) in situ of skin Start: 04-21-2024 End: 04-21-2024 Departed Referred Jose Larson MD Work Phone: [facility] [place] Work Phone: Start: 04-21-2024 End: 04-21-2024 Patient encounter procedure Oswald Karina DO Work Phone: [facility] Comment on above: Skin tag Start: 04-21-2024 End: 04-21-2024 ambulatory Jose Larson MD Work Phone: [facility] Work Phone: Start: 03-24-2024 End: 03-24-2024 ambulatory OSWALD KARINA Not Available Start: 03-24-2024 End: 03-24-2024 Patient encounter procedure Oswald Karina DO Work Phone: [facility] Start: 03-24-2024 End: 03-24-2024 Periodic preventive [...] Start: 03-11-2024 End: 03-11-2024 ambulatory Jose Larson Facility:[facility] Start: 11-15-2023 End: 11-15-2023 ambulatory OSWALD KARINA Not Available Start: 10-08-2023 End: 10-08-2023 ambulatory OSWALD KARINA Not Available Start: 04-18-2023 End: 04-18-2023 ambulatory OSWALD KARINA Not Available Start: 03-12-2023 End: 03-12-2023 ambulatory OSWALD KARINA Not Available Start: 03-14-2022 End: 03-15-[address] OSWALD COLLINS Facility:[facility] Start: 03-01-2022 End: 03-01-[address] OSWALD COLLINS Facility: Procedures Date Procedure Procedure Detail Performing Clinician Start: 03-24-2024 IGP,APTIMA HPV,AGE GDLN Oswald Karina DO Work Phone: Plan of Treatment Date Care Activity Detail Author Start: 03-30-2025 End: 03-30-2025 Patient encounter procedure 03/30/2025 9:00 AM EST Office Visit [facility] [address] [place] [id number] Karina, Oswald, DO [address] [place] [address] [facility] Start: 05-01-2024 End: 05-01-2025 Anaerobic culture Anaerobic culture Microbiology Routine Skin infection Expected: 05/01/2024 (Approximate), Expires: 05/01/2025 [facility] Work Phone: Comment on above: Expected: 05/01/2024 (Approximate), Expires: 05/01/2025 Start: 04-21-2024 End: 04-21-2024 Patient encounter procedure 04/21/2024 3:30 PM EST Procedure Visit [facility] [address] [place] [address] Oswald Collins DO [address] [place] [address] [facility] Start: 03-24-2024 End: 05-25-2025 MG Breast - bilateral Screening Bilateral screening mammogram Imaging Routine Breast cancer screening by mammogram Expected: 03/24/2024 (Approximate), Expires: 05/25/2025 [facility] Work Phone: Comment on above: Expected: 03/24/2024 (Approximate), Expires: 05/25/2025 Aerobic culture Aerobic culture Microbiology Routine Skin infection Ordered: 05/01/2024 [facility] Comment on above: Ordered: 05/01/2024 THIN PREP TIS PAP AN D HR HPV DNA THIN PREP TIS PAP AND HR HPV DNA Pathology and Cytology Routine Well woman exam with routine gynecological exam Ordered: 03/24/2024 [facility] Comment on above: Ordered: 03/24/2024 Payers Date Payer Category Payer Self-pay 2021 Private Health Insurance [employer] [id number] 1985 Unknown [id number]. 593 1985 Unknown [id number] [id number]. 593 1985 Unknown [id number] [id number]. 1259 1985 Unknown [id number] 2.16.840.1.368823.3.579.2. 1259 1985 Unknown [id number] 2.16.840.1.411257.3.579.2. 1259 1984 Unknown [id number] 2.16.840.1.300302.3.579.2. 1259 1985 Unknown [id number] 2.16.840.1.211485.3.579.2. 718 1985 Unknown [id number] 2.16.840.1.529891.3.579.2. 1259 1985 Unknown [id number] [id number]. 1259 1959 Unknown [id number] Unknown [id number] [id number]. 531 Social History Date Type Detail Facility Start: 02-28-2023 Tobacco smoking stat [facility] Ex-smoker [facility] History of tobacco use Current smoker [facility] History of tobacco use Cigarette Smoker [facility] Start: 11-15-2023 End: 04-21-2024 Alcoholic beverage intake Current drinker of alcohol (finding) [facility] Start: 02-28-2023 End: 10-08-2023 History of Social function [facility] Start: 02-28-2023 End: 10-08-2023 Tobacco use panel [facility] Start: 02-28-2023 Alcohol Comment Moderate alcohol use [facility] Start: 1985 Sex assigned at Not on file N [facility] Tobacco smoking stat [facility] Unknown if ever smoked [facility] Work Phone: Start: 04-23-2024 [facility] Start: 1985 Sex Assigned At Female F [facility] History of Present illness Narrative 05-01-2024 Dary White LPN - 05/01/2024 10:00 AM EST Note Date & Type Note Facility 05-01-2024 History of Presen t illness Narrative Images from the original note were not included. Reason for Appointment: Patient ID: Martina Pack is a 39 y.o. female who presents for skin infection (Pt present for a skin infection from a skin tag/mole removed on 04/21/2024. ) Patient presents today for Consult appointment. MEDICATIONS [...] Appearance: Normal appearance. She is well-developed. Genitourinary: Breasts: Right: Skin change present. Cardiovascular: Rate and Rhythm: Normal rate and regular rhythm. Pulmonary: Effort: Pulmonary effort is normal. Breath sounds: Normal breath sounds. Chest: Abdominal: General: Bowel sounds are normal. There [...] nursing note reviewed. Exam conducted with a carton forming machine operator present. Vitals: Estimated body mass index is 27.48 kg/m as calculated from the following: Height as of 03/01/22: 5' 4 . Weight as of 04/21/24: 160 lb 1.9 oz. BP: No LMP recorded. Patient has had an implant. ASSESSMENT & PLAN ICD-10-CM 1. Skin infection L08.9 Anaerobic culture Aerobic culture Anaerobic culture Patient presents today for possible infection located where skin lesion was previously removed a week ago. Patient was informed that pathology results were reviewed prior to appointment and they showed Basal Cell Carcinoma. Patient notified that Dermatology referral would be initiated, and patient request to be referred to Dr. Hernandez in [place] as that is where she was seen previously for dermatology concerns. Patient given copy of pathology. Assessment of area of concern and 2 sutures were removed and cultures obtained. Patient will be started on Keflex BID, which will be sent to [facility] in [place]. Patient to call office with any further questions/concerns. Documented by Dary White LPN on behalf of: Keysha Gerard PA-C documented in this encounter [facility] History of Present illness Narrative 04-21-2024 Dary White LPN - 04/21/2024 3:30 PM EST Note Date [...] nursing note reviewed. Exam conducted with a carton forming machine operator present. Vitals: Estimated body mass index is [...] nursing note reviewed. Exam conducted with a carton forming machine operator present. Vitals: Estimated body mass index is [...] by Yareli Ambrocio MA on behalf of: Oswald Collins DO documented in this encounter [facility] History and physical note 11-19-2019 Note Date & Type Note Facility 11-19-2019 Note [id number] 1#[id number]:127 [facility] Clinical Note 11-18-2019 Note Date & [...] you have a fever over 100 degrees. [facility] Evaluation note Note Date & Type Note Facility Evaluation note Diagnosis Well woman exam with routine gynecological exam Routine gynecological examination Breast cancer screening by mammogram documented in this encounter [facility] Healthcare Evaluation note Note Date & Type Note Facility Evaluation note Diagnosis Skin tag Unspecified hypertrophic and atrophic condition of skin documented in this encounter [facility] Healthcare Evaluation note Note Date & Type Note Facility Evaluation note No assessment information availa [facility] Work Phone: Evaluation note Note Date & Type Note Facility Evaluation note Diagnosis Skin infection Unspecified local infection of skin and subcutaneous tissue Basal cell carcinoma (BCC) in situ of skin documented in this encounter [facility] Healthcare Summary Purpose Family History No Family History Records FoundNo Family History Records FoundNo Family History Records FoundNo Family History Records FoundNo Family History Records FoundNo Family History Records Found Advance Directives Advance Directive Response Recorded Date/ Time Advance Directives No April 22, 2024 4:51pm Chief Complaint and Reason for Visit Chief Complaint Admit Date Skin tag/mole April 21, 2024 3 :40pm Additional Source Comments INFORMATION SOURCE (unrecogn ized section and content) DATE CREATED AUTHOR 07/28/2020 [facility] DATE CREATED AUTHOR AUTHOR'S ORGANIZ ATION 03/18/2022 [facility] DATE CREATED AUTHOR AUTHOR'S ORGANIZ ATION 11/17/2023 [facility] EPIC DATE CREATED AUTHOR AUTHOR'S ORGANIZ ATION 03/13/2024 [facility] DATE CREATED AUTHOR AUTHOR'S ORGANIZ ATION 04/25/2024 [facility] EPIC DATE CREATED AUTHOR AUTHOR'S ORGANIZ ATION 04/28/2024 [facility] Care Teams (unrecognized sec tion and content) Apartment Groundskeeper Relationship Specialty [place] [address] [address] PCP - General Family Medicine 03/12/23 Apartment Groundskeeper Relationship Specialty [place] [address] [address] PCP - General Family Medicine 03/12/23 Apartment Groundskeeper Relationship Specialty [place] [address] [address] PCP - General Family Medicine 03/12/23 Apartment Groundskeeper Relationship Specialty [place] [address] [address] PCP - General Family Medicine 03/12/23 Team Status: Active Member Role Status Dates Jose Larson MD Primary Care Provider Active Team Status: Inactive Member Role Status Dates Oswald Collins DO Attending Provider Active Start : April 21, 2024 End: April 21, 2024 Jose Larson MD Primary Care Provider Active S tart: April 21, 2024 End: April 21, 2024 Apartment Groundskeeper Relationship Specialty [place] [address] [address] PCP - General Family Medicine 03/12/23 Apartment Groundskeeper Relationship Specialty [place] [address] [address] PCP - General Family Medicine 03/12/23 Reason for Visit (unrecogniz ed section and content) Reason Comments Gynecologic Exam Reason Comments skin tags Reason Comments skin infection Pt present for a ski n infection from a skin tag/mole removed on 04/21/2024. Goals (unrecognized section and content) Goals may [...] BE BASED ON THE PRIMARY CLINICAL RECORDS. [facility] [employer] [facility]. provides no warranty or guarantee of the accuracy or completeness of information in this document.
== END 2024-05-01 08:27 | disposition home or self-care (01) ==
LOC: LAB 08:26
PROVIDERS: Visit Provider Physician Assistant
DX: L08.9 Local infection of the skin and subcutaneous tissue, unspecified (principal)
CPT/HCPCS: 87070; 87075

== ENCOUNTER 2025-03-24 16:24 | Outpatient (OUT) | payer OTHER, SELFPAY ==
--- NOTE | 2025-03-24 16:27 | MM_ITS ---
Patient Name: MARTINA PACK MR#: [id number] : 1985 Exam Date: 03/24/2025 Ordering Doctor: DR OSWALD WHIPPLE . RADIOLOGY REPORT PROCEDURE: MM TOMOSYNTHESIS SCREENING BI COMPARISON: MG MAMM SCREEN 3D JUSTINA CAD, 03/14/2022. INDICATIONS: Screening Calculator Name NCI Breast Cancer Risk Assessment Tool 5 Year Breast Cancer Risk 0.50% Lifetime Breast Cancer Risk 9.00% Personal Breast Cancer No Personal Ovarian Cancer No Treatments None Family Cancers Aunt-maternal with breast cancer at age 60; Cousin-maternal with breast cancer at age 41. LOCATION: [facility] [place] BREAST COMPOSITION: The breasts are extremely dense, which lowers the sensitivity of mammography. FINDINGS: RIGHT BREAST: 2 regions of right breast asymmetry. Posterior position in the upper-outer quadrant. The 1st difficult to measure. the 2nd measures up to 8 mm. LEFT BREAST: No significant suspicious finding. DIAGNOSTIC CATEGORY 0--INCOMPLETE: NEED ADDITIONAL IMAGING EVALUATION. RECOMMENDATIONS: ADDITIONAL MAMMOGRAPHIC VIEWS REQUIRED: RIGHT BREAST - spot compression imaging recommended. ULTRASOUND: RIGHT BREAST Dictated by: Ebenezer Banda DO on 03/25/2025 at 09:58 Approved by: Ebenezer Banda DO on 03/25/2025 at 10:08
--- OUTSIDE RECORDS SUMMARY | 2025-03-24 16:28 | XMS_ITS | Clinical Summary ---
Author Organization [facility] Address [address] [place] [address] Phone Care Team Providers Care Ibm Websphere Commerce Consultant Name Role Phone Unavailable Primary Care Provider Unavailabl e Social History Tobacco UseTypesPacks/DayYears UsedDateSmoking Tobacco: Never Assessed CommentsUnknownSex and Gender InformationValueDate RecordedSex Assigned at Not on fileLegal LbhAyfaja78/12/2025 12:19 PM ESTGender IdentityNot on file Sexual OrientationNot on file Plan of Treatment Health MaintenanceDue DateLast DoneCommentsHIV Xypuylsjw1984Lipid Panel 1985Yearly Adult Lnjjpigl1984MMR Vaccines (1 of 1 - Standard series) 01/10/1985Hepatitis C Vuremglch24/04/2002Hepatitis B Vaccines (1 of 3 - 19+ 3- dose series)01/10/2003Cervical Cancer Jvzsqwifz47/04/2005HPV/Fvjzde6501/10/2005Pap Smear01/10/2005DTaP/Tdap/Td Vaccines (1 - Tdap)01/10/2006HPV Vaccines (1 - 3- dose standard series)01/10/20112839Nzqwawukq49/04/2024Influenza Vaccine (#1) 2024OVID-19 Vaccine ( - season)2024Zoster Vaccines (1 of 2)01/10/2034HIB VaccinesAged OutNo longer eligible based on patient's age to complete this topicHepatitis A VaccinesAged OutNo longer eligible based on patient's age to complete this topicIPV VaccinesAged OutNo longer eligible based on patient's age to complete this topicMeningococcal VaccineAged OutNo longer eligible based on patient's age to complete this topicPneumococcal Vaccine: Pediatrics and At-Risk Adult PatientsAged OutNo longer eligible based on patient's age to complete this topicRotavirus VaccinesAged OutNo longer eligible based on patient's age to complete this topic Insurance * Guarantor: Ankur Pack TypeRelation to PatientDate of BirthPhone Billing AddressPersonal/EhnsqpLevx1985 [address], [place]
--- OUTSIDE RECORDS SUMMARY | 2025-03-24 16:28 | XMS_ITS | Clinical Summary ---
Author Organization [facility] Address [id number] [address] [place] [address] Care Team Providers Care Performance Improvement Director Name Role Phone Jose Larson MD Primary Care Provider [phone] Allergies Active AllergyReactionsCriticalityNoted DateCommentsPromethazinemuscle cramps Bedqwf2302/22/2017 Muscle spasms Medications MedicationSigDispense QuantityRefillsLast FilledStart DateEnd DateStatus pediatric multivitamin (FRUITY CHEWS) tablet,chewable Chew 2 tablets and swallow daily.Active aspirin 81 mg Indications:Hx of HELLP syndrome, currently , second trimesterTake 1 tablet (81 mg total) by mouth daily. 30 tablet Active ferrous sulfate 325 (65 FE) mg tablet Indications:Anemia affecting in second trimesterTake 1 tablet (325 mg total) by mouth daily with breakfast. 30 tablet Active Active Problems ProblemNoted DateDiagnosed DateHx of HELLP syndrome, currently , second iyvmtclxb00/17/2017History of delivery: Indicated Preeclampsia with severe oxcrhhrj32/17/2017Anemia affecting in second trimester 02/23/2017H/O section: [facility] by OP note single layer closure 02/23/2017Nausea and vomiting during /17/2017Fetal echogenic intracardiac focus on /17/2017Placenta succenturiate lobe affecting fetus02/23/2017 Resolved Problems ProblemNoted DateDiagnosed DateResolved DateAbnormal placenta affecting delivery Family History Medical HistoryRelationNameCommentsStrokeMaternal GrandmotherRelationNameStatus CommentsMaternal Grandmother Social History Tobacco UseTypesPacks/DayYears UsedDateSmoking Tobacco: FormerSmokeless Tobacco: NeverAlcohol UseStandard Drinks/WeekCommentsYes0 (1 standard drink = 0.6 oz pure alcohol)ChildcareAnswerDate BpksydbtOyjzzfogkMoaigoh43/10/2019EmploymentAnswer Date AjcnoullQwjdtudimvPwqoyrv77/10/2019Purpose - LifeAnswerDate RecordedPurpose and direction in ylrkMtyoyag46/10/2021CommentsNoSex and Gender InformationValueDate RecordedSex Assigned at BirthNot on fileLegal SexFemale 11/10/2014 2:21 PM EDTGender IdentityNot on fileSexual OrientationNot on file Last Filed Vital Signs Vital SignReadingTime TakenCommentsBlood Rxlduhou747/6611 1:47 PM EST Ffwws015902/23/2017 1:47 PM ESTTemperature--Respiratory Rate--Oxygen Saturation-- Inhaled Oxygen Concentration--Uwvtvz33.8 kg (153 lb 14.1 oz)02/23/2017 1:47 PM XPFZftrst878.6 cm (5' 4 )02/23/2017 1:47 PM ESTBody Mass Index26.41104/25/2016 1:47 PM EST Plan of Treatment Health MaintenanceDue DateLast DoneCommentsDepression Wnksynorr69/04/1996Tobacco Ozxcxmgmz29/04/1996Adult BMI Pchjjceup77/04/2002DTaP,Tdap and Td Vaccines (1 - Tdap)01/10/2003Pap Smear01/10/2005Influenza Yovoofy2912/08/2024 Medical Devices Not on file Insurance * Guarantor: MARTINA PACK TypeRelation to PatientDate of BirthPhone Billing AddressPersonal/NcldalFmqf1985 [address] [place] [address] Care Teams Team MemberRelationshipSpecialtyStart [place] L[place] [address] [facility] [address] [place] [address] [facility] - Vcfpibj64/17/17
--- OUTSIDE RECORDS SUMMARY | 2025-03-24 16:28 | XMS_ITS | Clinical Summary ---
Author Organization [facility] Healthcare Address [address] [place] [address] Care Team Providers Care Pumper Hand Name Role Phone Joes Larson MD Primary Care Provider [phone] Allergies Active AllergyReactionsCriticalityNoted DateCommentsPromethazineOtherMedium 02/22/2017 Other Reaction(s): Shakes Muscle spasms Medications MedicationSigDispense QuantityRefillsLast FilledStart DateEnd DateStatus aspirin 81 MG EC tablet Take 81 mg by mouth DailyActiveHospital, Clinic, or Other Facility Administered MedicationOrdered DoseRouteFrequencyStart DateEnd DateStatus Levonorgestrel intrauterine device 52 mg Indications:Encounter for IUD dnbogjwvz62 zkJASjrrrrlaay30 Active Active Problems ProblemNoted DateDiagnosed DateBasal cell carcinoma (BCC) in situ of skin 05/01/2024 Encounters DateTypeDepartmentCare KjwbPwjxgahgipv18/15/7150Iuyfmc39/29/2025 8:30 AM EDT Office Visit [facility] [address] [place] [address] Lion Blum NP Biceps femoris tendon strain at knee (Primary Dx); Acute pain of right knee02/04/2025amboo flowsheet [facility] [address] [place] [address] Lion Blum NP 02/04/20253634Hydzlq16/28/2025Travelfrom Last 3 Months Family History Medical HistoryRelationNameCommentsDiabetesMaternal GrandfatherHyperlipidemia Maternal GrandfatherDiabetesMaternal GrandmotherHypertensionMaternal Grandmother StrokeMaternal GrandmotherCVA (cerebral infarction)HypertensionMotherRelation NameStatusCommentsDaughter 1AliveDaughter 2AliveFatherAliveMaternal Grandfather Maternal GrandmotherMother Social History Tobacco UseTypesPacks/DayYears UsedDateSmoking Tobacco: FormerCigarettes Smokeless Tobacco: Never Tobacco Cessation:Counseling Given: Not Answered Alcohol UseStandard Drinks/WeekCommentsYes0 (1 standard drink = 0.6 oz pure alcohol)Moderate alcohol useCommentsNoSex and Gender InformationValue Date RecordedSex Assigned at BirthNot on fileLegal IjsRkhhbk19/15/2023 6:58 PM EDTGender IdentityNot on fileSexual OrientationNot on file Last Filed Vital Signs Vital SignReadingTime TakenCommentsBlood Ovyfvtti856/62005/26/2024 9:59 AM EST Htizl2923/17/2025 9:59 AM ESTTemperature--Respiratory Rate--Oxygen Kaitofxmzw18% 05/26/2024 9:59 AM ESTInhaled Oxygen Concentration--Xqdhew51.7 kg (147 lb) 02/04/2025 8:35 AM BQYTnqjtn793.6 cm (5' 4 )02/04/2025 8:35 AM EDTBody Mass Index25.231 8:35 AM EDT Plan of Treatment DateTypeDepartmentCare Team (Latest Contact Info)Sjzodimlcju72/22/2025 9:00 AM ESTOffice Visit [facility] [address] [place] [address] Kosta Collins DO [address] [place], [place] [id number] Insurance Care Teams Team MemberRelationshipSpecialtyStart [place] [address] [address] [facility] [address] [place] [address] PCP - GeneralFamily Otlhamze23/4/23
--- OUTSIDE RECORDS SUMMARY | 2025-03-24 16:28 | XMS_ITS | Encounter Summary ---
Author Organization [facility] Address [address] [place] [address] Care Team Providers Care Wine Blender Name Role Phone Jose Larson MD Primary Care Provider [phone] Encounter Details DateTypeDepartmentCare Team (Latest Contact Info)Vamsnshniij68/15/2025Travel Social History Tobacco UseTypesPacks/DayYears UsedDateSmoking Tobacco: FormerCigarettes Smokeless Tobacco: NeverAlcohol UseStandard Drinks/WeekCommentsYes0 (1 standard drink = 0.6 oz pure alcohol)Moderate alcohol useCommentsNoSex and Gender InformationValueDate RecordedSex Assigned at BirthNot on fileLegal SexFemale 06/21/2022 6:58 PM EDTGender IdentityNot on fileSexual OrientationNot on file documented as of this encounter Plan of Treatment DateTypeDepartmentCare Team (Latest Contact Info)Ixkmieqnibl41/22/2025 9:00 AM ESTOffice Visit [facility] [address] [address] Kosta Collins DO [address] [place] [address] documented as of this encounter Visit Diagnoses Not on filedocumented in this encounter Care Teams Team MemberRelationshipSpecialtyStart [place] [address] [address] PCP - GeneralFamily Qlmwytls44/4/23documented as of this encounter
== END 2025-03-24 16:25 | disposition home or self-care (01) ==
LOC: MAMMO 16:25
PROVIDERS: PCP Family Medicine; Visit Provider Obstetrics & Gynecology
DX: Z12.31 Encounter for screening mammogram for malignant neoplasm of breast (principal); Z80.3 Family history of malignant neoplasm of breast; R92.8 Other abnormal and inconclusive findings on diagnostic imaging of breast
CPT/HCPCS: 77063; 77067

== ENCOUNTER 2025-03-30 12:12 | Outpatient (REF) | payer OTHER, SELFPAY ==
--- OUTSIDE RECORDS SUMMARY | 2025-03-30 09:00 | XMS_ITS | Encounter Summary ---
Author Organization [facility] Address [address] [place] [address] Care Team Providers Care Microfilm Clerk Name Role Phone Jose Larson MD Primary Care Provider [phone] Reason for Visit * ReasonCommentsWell Women Visit Encounter Details DateTypeDepartmentCare Team (Latest Contact Info)Ycusafitfgj94/22/2025 9:00 AM ESTOffice Visit [facility] [place] [facility] [address] [place] [address] Kosta Collins DO [address] [place], [place] [id number] Well woman exam with routine gynecological exam Social History Tobacco UseTypesPacks/DayYears UsedDateSmoking Tobacco: FormerCigarettes Smokeless Tobacco: NeverAlcohol UseStandard Drinks/WeekCommentsYes0 (1 standard drink = 0.6 oz pure alcohol)Moderate alcohol useCommentsNoSex and Gender InformationValueDate RecordedSex Assigned at BirthNot on fileLegal SexFemale 06/21/2022 6:58 PM EDTGender IdentityNot on fileSexual OrientationNot on file documented as of this encounter Last Filed Vital Signs Vital SignReadingTime TakenCommentsBlood Oikaooel427/7003/30/2025 9:15 AM EST Pulse--Temperature--Respiratory Rate--Oxygen Saturation--Inhaled Oxygen Concentration--Burwlz65.1 kg (156 lb 12.8 oz)03/30/2025 9:15 AM ESTHeight--Body Mass Index26.9110 8:35 AM EDTdocumented in this encounter Progress Notes * Alina Boland, LADLE MECHANIC - 03/30/2025 9:00 AM EST Reason for Appointment: Patient ID: Julia Garza is a 40 y.o. female who presents for [facility] Women Visit Patient presents today for Annual Exam. MEDICATIONS No current outpatient medications ALLERGIES Allergies Allergen Reactions Promethazine Other Other Reaction(s): Shakes Muscle spasms PROBLEMS Active Ambulatory Problems Diagnosis Date Noted Basal cell carcinoma (BCC) in situ of skin 05/01/2024 Resolved Ambulatory Problems Diagnosis Date Noted No Resolved Ambulatory Problems Past Medical History: Diagnosis Date BMI 25.0-25.9,adult BPPV (benign paroxysmal positional vertigo) Depression screening Well woman exam 03/01/2022 HISTORY PAST MEDICAL HISTORY SOCIAL HISTORY Past Medical History: Diagnosis Date BMI 25.0-25.9,adult BPPV (benign paroxysmal positional vertigo) Depression screening Well woman exam 03/01/2022 ascus hpv- Social History Tobacco Use Smoking status: Former Types: Cigarettes Smokeless tobacco: Never Substance Use Topics Alcohol use: Yes Comment: [...] SYSTEMS Review of Systems: Review of Systems Constitutional: Negative. HENT: Negative. Eyes: Negative. Respiratory: Negative. Cardiovascular: Negative. Gastrointestinal: Negative. Genitourinary: Negative. Musculoskeletal: Negative. Skin: Negative. Neurological: Negative. All other systems reviewed and are negative. Hematological: Negative. Endocrine: Negative. Allergic/Immunologic: Negative. OBJECTIVE Objective: Physical Exam Constitutional: Appearance: Normal appearance. She is well-developed. Genitourinary: Vulva normal. Cardiovascular: Rate and Rhythm: Normal rate and [...] nursing note reviewed. Exam conducted with a paint tinter present. Vitals: Estimated body mass index is 26.91 kg/m?? as calculated from the following: Height as of 02/04/25: 5' 4 . Weight as of this encounter: 156 lb 12.8 oz. BP: 110/70 No LMP recorded. (Menstrual status: IUD). ASSESSMENT & PLAN ICD-10-CM 1. Well woman exam with routine gynecological exam Z01.419 THIN PREP TIS PAP AND HR HPV DNA No orders of the defined types were placed in this encounter. Annual Wellness Exam: Patient presents today for routine annual exam. Patient states she has no current complaints. Patients vitals were reviewed and within normal limits. Growth and development is noted to be appropriate for age. Menstrual history is noted to be regular with no concerns reported. No mental health concerns was expressed. Pap Smear: Speculum was inserted into the vagina and pap was obtained without difficulty. HPV testing was performed per age guideline. Patient was advised that pap results could take anywhere from 7 to 10 days to receive and our office will reach out to the patient with those once we have them. Patient can also view results via [employer]. I reinforced importance of condom use for STI prevention. Patient declined cultures to be performed with today's visit. Breast Exam: Upon examination, clinical breast exam was noted to be normal and screening mammogram was ordered and given to patient to have obtained. Patient was counseled on breast self-awareness, including the importance of knowing what is normal for her own breasts and promptly reporting any changes such as new lumps, skin dimpling, nipple discharge, or pain. Screening mammogram was recommended annually. Discussed signs and symptoms of breast cancer and when to seek medical attention. Answered all patient questions. Contraceptive Counseling (if applicable): Patient is currently using IUD as a form of contraceptive. Follow Up: Patient is to return to our office in one year for annual exam unless needed otherwise. Documented by Alina Boland LPN on behalf of: Keysha Gerard PA-C documented in this encounter Plan of Treatment DateTypeDepartmentCare Team (Latest Contact Info)Xfynqwiiobo17/04/2027 3:00 PM ESTProcedure Visit [facility] [address] [place] [address] Kosta Collins DO [address] [place] [address] NameTypePriorityAssociated DiagnosesOrder ScheduleTHIN PREP TIS PAP AND HR HPV DNAPathology and CytologyRoutine Well woman exam with routine gynecological exam Ordered: 03/30/2025documented as of this encounter Visit Diagnoses Diagnosis Well woman exam with routine gynecological exam Routine gynecological examination documented in this encounter Care Teams Team MemberRelationshipSpecialtyStart [place] [address] [address] [facility] [address] [place] [address] PCP - GeneralFamily Qdybwkmy53/4/23documented as of this encounter
--- OUTSIDE RECORDS SUMMARY | 2025-03-30 12:15 | XMS_ITS | Encounter Summary ---
Author Organization [facility] Address [address] [place] [address] Care Team Providers Care Pantograph Operator Name Role Phone Jose Larson MD Primary Care Provider [phone] Encounter Details DateTypeDepartmentCare Team (Latest Contact Info)Bkhnshglibv94/17/2025Telephone [facility] [place] [facility] [address] [place] [phone] Kosta Collins, [address] [place], [place] [address] Social History Tobacco UseTypesPacks/DayYears UsedDateSmoking Tobacco: FormerCigarettes Smokeless Tobacco: NeverAlcohol UseStandard Drinks/WeekCommentsYes0 (1 standard drink = 0.6 oz pure alcohol)Moderate alcohol useCommentsNoSex and Gender InformationValueDate RecordedSex Assigned at BirthNot on fileLegal SexFemale 06/21/2022 6:58 PM EDTGender IdentityNot on fileSexual OrientationNot on file documented as of this encounter Miscellaneous Notes * Telephone Encounter - Marry JUDIE Banuelos - 03/25/2025 1:44 PM EST I just saw that my test results were back from my mammogram and it looks like it is requiring additional testing. I was wondering if I could get that ordered before I see him on Sunday. My number is [phone]. If someone could give me a call back, thank you. Patient call was returned and she was advised these are ordered and that [place] [facility] [place] as [facility] only does these on Sunday. Pvu and she was given the number to Call the Breast center to schedule. documented in this encounter Plan of Treatment DateTypeDepartmentCare Team (Latest Contact Info)Fljakxyvbwj03/04/2027 3:00 PM ESTProcedure Visit [facility] [place] [facility] [address] [facility] [address] Kosta Collins, [address] [facility] [address] [place] [address] NameTypePriorityAssociated DiagnosesOrder ScheduleRight diagnostic mammogram ImagingRoutine Mammogram abnormal Expected: 03/25/2025 (Approximate), Expires: 05/26/2026documented as of this encounter Visit Diagnoses Diagnosis Mammogram abnormal Abnormal mammogram, unspecified documented in this encounter Care Teams Team MemberRelationshipSpecialtyStart [place] [address] [address] PCP - GeneralFamily Mqmxotbu50/4/23documented as of this encounter
--- OUTSIDE RECORDS SUMMARY | 2025-03-30 12:15 | XMS_ITS | Encounter Summary ---
Author Organization [facility] Address [address] [place] [address] Care Team Providers Care Technology Project Manager Name Role Phone Jose Larson MD Primary Care Provider [phone] Encounter Details DateTypeDepartmentCare Team (Latest Contact Info)Xfcwgfvmsem11/15/2025Travel Social History Tobacco UseTypesPacks/DayYears UsedDateSmoking Tobacco: FormerCigarettes Smokeless Tobacco: NeverAlcohol UseStandard Drinks/WeekCommentsYes0 (1 standard drink = 0.6 oz pure alcohol)Moderate alcohol useCommentsNoSex and Gender InformationValueDate RecordedSex Assigned at BirthNot on fileLegal SexFemale 06/21/2022 6:58 PM EDTGender IdentityNot on fileSexual OrientationNot on file documented as of this encounter Plan of Treatment DateTypeDepartmentCare Team (Latest Contact Info)Melatxdpmgz39/04/2027 3:00 PM ESTProcedure Visit [facility] [place] [facility] [address] [facility] [place] [address] Kosta Collins DO [address] [facility] [place] [address] documented as of this encounter Visit Diagnoses Not on filedocumented in this encounter Care Teams Team MemberRelationshipSpecialtyStart [place] [address] [address] PCP - GeneralFamily Pzcsbqhy99/4/23documented as of this encounter
--- OUTSIDE RECORDS SUMMARY | 2025-03-30 12:15 | XMS_ITS | Clinical Summary ---
Author Organization [facility] Address [address] [place] [address] Care Team Providers Care Rubber Chemist Name Role Phone Dagoberto Liang MD Primary Care Provider [phone] Allergies Active AllergyReactionsCriticalityNoted DateCommentsPromethazineOtherMedium 02/22/2017 Other Reaction(s): Shakes Muscle spasms Medications MedicationSigDispense QuantityRefillsLast FilledStart DateEnd DateStatus aspirin 81 MG EC tablet Take 81 mg by mouth Daily03/30/2025DiscontinuedHospital, Clinic, or Other Facility Administered MedicationOrdered DoseRouteFrequencyStart DateEnd Date Status Levonorgestrel intrauterine device 52 mg Indications:Encounter for IUD jvkkzietx36 zsOGVcafglpedd65/08/202408/10/2028 Active Active Problems ProblemNoted DateDiagnosed DateBasal cell carcinoma (BCC) in situ of skin 05/01/2024 Encounters DateTypeDepartmentCare KssuPrvgmtbggpt53/22/2025 9:00 AM ESTOffice Visit [facility] [place] [facility] [address] [place] [address] Oswald Collins, DO Well woman exam with routine gynecological exam03/30/2025amboo flowsheet [facility] [place] [facility] [address] [place] [address] Oswald Collins DO 03/25/2025Telephone [facility] [place] [facility] [address] [facility] [address] [address] KarinaOswald gibbs, DO 03/25/2025linisync Result Encounter [facility] External Department Unsolicited Karina Oswald, DO 03/23/20257072Roxqds84/29/2025 8:30 AM EDTOffice Visit [facility] [address] [facility] [place] [address] Lion Blum, SOPHIA Biceps femoris tendon strain at knee (Primary Dx); Acute pain of right knee02/04/2025amboo flowsheet [facility] [address] [facility] [address] [place] [address] Lion Blum NP 02/04/20253934Qgueqo18/28/2025Travelfrom Last 3 Months Family History Medical HistoryRelationNameCommentsDiabetesMaternal GrandfatherHyperlipidemia Maternal GrandfatherDiabetesMaternal GrandmotherHypertensionMaternal Grandmother StrokeMaternal GrandmotherCVA (cerebral infarction)HypertensionMotherRelation NameStatusCommentsDaughter 1AliveDaughter 2AliveFatherAliveMaternal Grandfather Maternal GrandmotherMother Social History Tobacco UseTypesPacks/DayYears UsedDateSmoking Tobacco: FormerCigarettes Smokeless Tobacco: Never Tobacco Cessation:Counseling Given: Not Answered Alcohol UseStandard Drinks/WeekCommentsYes0 (1 standard drink = 0.6 oz pure alcohol)Moderate alcohol useCommentsNoSex and Gender InformationValue Date RecordedSex Assigned at BirthNot on fileLegal FleFitgxn70/15/2023 6:58 PM EDTGender IdentityNot on fileSexual OrientationNot on file Last Filed Vital Signs Vital SignReadingTime TakenCommentsBlood Qotpyuwb965/7003/30/2025 9:15 AM EST Zqlia8806/17/2025 9:59 AM ESTTemperature--Respiratory Rate--Oxygen Wdcxbsglwx50% 05/26/2024 9:59 AM ESTInhaled Oxygen Concentration--Zblslt22.1 kg (156 lb 12.8 oz)03/30/2025 9:15 AM KZQRzdbat345.6 cm (5' 4 )02/04/2025 8:35 AM EDTBody Mass Index26.9102/04/2025 8:35 AM EDT Plan of Treatment DateTypeDepartmentCare Team (Latest Contact Info)Irefdnnfdvx58/04/2027 3:00 PM ESTProcedure Visit [facility] [place] [facility] [address] [facility] [address] Oswald Collins, DO [address] [facility] [place] [address] Procedures Procedure NamePriorityDate/TimeAssociated DiagnosisCommentsMM TOMOSYNTHESIS SCREENING BI03/25/2025 10:08 AM EST from Last 3 Months Results * MM TOMOSYNTHESIS SCREENING BI (03/25/2025 10:08 AM EST)Anatomical Region LateralityModalityOtherSpecimen (Source)Anatomical Location / Laterality Collection Method / VolumeCollection TimeReceived Time03/25/2025 10:08 AM EST Narrative 03/25/2025 10:09 AM EST [facility] ?[address] ? [place] [address] ? Mammography Report ? Signed ? Patient: RAMONE,MARTINA R ?MR#: [id number] ?? : 1985 ?Acct:[id number] ?? Age/Sex: 40 / F ?ADM Date: /16/25 ?? Loc: MAMMO ? Attending Dr: Oswald Collins D.O. ? Ordering Physician: Oswald Collins D.O. ?Results: ? Date of Service: 12/16/25 ?Follow Up: ? Procedure(s): MM tomosynthesis screening BI ?? Accession Number(s): [id number] ? cc: DAGOBERTO LIANG ; Oswald Collins D.O. ? Patient Name: ? MARTINA PACK ? MR#: [id number] ? : 1985 ? Exam Date: 03/24/2025 ?? Ordering Doctor: DR OSWALD COLLINS . ? RADIOLOGY REPORT ? PROCEDURE: ? MM TOMOSYNTHESIS SCREENING BI ? COMPARISON: ? MG MAMM SCREEN 3D JUSTINA CAD, 03/14/2022. ? INDICATIONS: ? Screening ? Calculator Name ? NCI Breast Cancer Risk Assessment Tool ?? 5 Year Breast Cancer Risk ? 0.50% ?? Lifetime Breast Cancer Risk ? 9.00% ?? Personal Breast Cancer ?No ?? Personal Ovarian Cancer ? No ?? Treatments ? None ?? Family Cancers ? Aunt-maternal with breast cancer at age 60; Cousin-maternal ?? with breast cancer at age 41. ? LOCATION: ? [facility] ? BREAST COMPOSITION: ? The breasts are extremely dense, which lowers the ?? sensitivity of mammography. ? FINDINGS: ? RIGHT BREAST: ??2 regions of right breast asymmetry. ??Posterior position in the ?? upper-outer quadrant. ??The 1st difficult to measure. ??the 2nd measures up to 8 ?? mm. ? LEFT BREAST: ??No significant suspicious finding. ? DIAGNOSTIC CATEGORY 0--INCOMPLETE: NEED ADDITIONAL IMAGING EVALUATION. ? RECOMMENDATIONS: ? ADDITIONAL MAMMOGRAPHIC VIEWS REQUIRED: RIGHT BREAST - spot compression ?? imaging recommended. ? ULTRASOUND: RIGHT BREAST ? Dictated by: Ebenezer Banda DO on 03/25/2025 at 09:58 ? Approved by: Ebenezer Banda DO on 03/25/2025 at 10:08 ? Dictated By: ?Ebenezer Banda D.O. ? Signed By: ?12/17/25 1009 ? DD/DT: /17/25 1008 ? TD/TT: ? Instrument Setter: Procedure Note Radiology, Radiologist, MD - 03/25/2025 [place] [address] Mammography Report Signed Patient: MARTINA PACK RMR#: [id number] : 1985Acct:[id number] Age/Sex: 40 / FADM Date: 03/24/25 Loc: MAMMO Attending Dr: Oswald Collins D.O. Ordering Physician: Oswald Collins D.O.Results: Date of Service: 03/24/25Follow Up: Procedure(s): MM tomosynthesis screening BI Accession Number(s): [id number] cc: DAGOBERTO LIANG ; Oswald Collins D.O. Patient Name: MARTINA PACK MR#: [id number] : 1985 Exam Date: 03/24/2025 Ordering Doctor: DR OSWALD COLLINS . RADIOLOGY REPORT PROCEDURE: MM TOMOSYNTHESIS SCREENING BI COMPARISON: MG MAMM SCREEN 3D JUSTINA CAD, 03/14/2022. INDICATIONS: Screening Calculator Name NCI Breast Cancer Risk Assessment Tool 5 Year Breast Cancer Risk 0.50% Lifetime Breast Cancer Risk 9.00% Personal Breast Cancer No Personal Ovarian Cancer No Treatments None Family Cancers Aunt-maternal with breast cancer at age 60;Cousin-maternal with breast cancer at age 41. LOCATION: [facility] BREAST COMPOSITION: The breasts are extremely dense, which lowers the sensitivity of mammography. FINDINGS: RIGHT BREAST: 2 regions of right breast asymmetry. Posterior position inthe upper-outer quadrant. The 1st difficult to measure. the 2nd measures upto 8 mm. LEFT BREAST: No significant suspicious finding. DIAGNOSTIC CATEGORY 0--INCOMPLETE: NEED ADDITIONAL IMAGING EVALUATION. RECOMMENDATIONS: ADDITIONAL MAMMOGRAPHIC VIEWS REQUIRED: RIGHT BREAST - spot compression imaging recommended. ULTRASOUND: RIGHT BREAST Dictated by: Ebenezer Banda DO on 03/25/2025 at 09:58 Approved by: Ebenezer Banda DO on 03/25/2025 at 10:08 Dictated By: Ebenezer Banda D.O. Signed By:03/25/25 1009 DD/ 1008 TD/TT: Instrument Setter: Authorizing ProviderResult TypeResult StatusCorey Karina KUMARLINISYNC IMAGINGFinal Result from Last 3 Months Insurance * Guarantor: Ankur Pack TypeRelation to PatientDate of BirthPhone Billing AddressPersonal/RgorddEchk39 [address] [place] [address] MemberSubscriberPlan / Payer (Effective 2021-Present)Name:Martina Pack Relation to Subscriber:SpouseName:JOCELYNE PACK Date of :1986 Address: [address] [place] [address] Payer ID:Not on file Type:Not on file Address: [address] [place] [phone] MemberSubscriberPlan / Payer (Effective 2021-Present)Name:Martina Pack Relation to Subscriber:SpouseName:JOCELYNE PACK Date of :1986 Address: [address] [place] [address] Payer ID:Not on file Type:Not on file Address: [address] [place] [phone] Care Teams Team MemberRelationshipSpecialtyStart [place] [address] [place] [address] PCP - GeneralFamily Kxqriawx34/4/23
--- OUTSIDE RECORDS SUMMARY | 2025-03-30 12:15 | XMS_ITS | Clinical Summary ---
Author Organization [facility] Address [address] [place] [address] Phone Care Team Providers Care Circuit Breaker Mechanic Name Role Phone Unavailable Primary Care Provider Unavailabl e Social History Tobacco UseTypesPacks/DayYears UsedDateSmoking Tobacco: Never Assessed CommentsUnknownSex and Gender InformationValueDate RecordedSex Assigned at Not on fileLegal AtjPpcpjg84/12/2025 12:19 PM ESTGender IdentityNot on file Sexual OrientationNot on file Plan of Treatment Health MaintenanceDue DateLast DoneCommentsHIV Yletajdba1984Lipid Panel 1985Yearly Adult Nyfyffoq1985MMR Vaccines (1 of 1 - Standard series) 01/10/1985Hepatitis C Wpshythjn46/04/2002Hepatitis B Vaccines (1 of 3 - 19+ 3- dose series)01/10/2003Cervical Cancer Xvnxkvqml81/04/2005HPV/Pubmnk9001/10/2005Pap Smear01/10/2005DTaP/Tdap/Td Vaccines (1 - Tdap)01/10/2006HPV Vaccines (1 - 3- dose standard series)01/10/20113470Dqyfzpicg47/04/2024COVID-19 Vaccine ( - 2024- season)2024Influenza Vaccine (#1)2024Zoster Vaccines (1 of 2) 01/10/2034HIB VaccinesAged OutNo longer eligible based on patient's [...] Pack TypeRelation to PatientDate of BirthPhone Billing AddressPersonal/WxgooaZnyk1985 [address], [place]
--- OUTSIDE RECORDS SUMMARY | 2025-03-30 12:15 | XMS_ITS | Encounter Summary ---
Author Organization [facility] Address [address] [place] [address] Care Team Providers Care Gear Nicker Name Role Phone Jose Liang MD Primary Care Provider [phone] Encounter Details DateTypeDepartmentCare Team (Latest Contact Info)Sxnqkeehbzj42/17/2025linisync Result Encounter [facility] External Department Unsolicited Oswald Collins, DO [address] [place] [address] Social History Tobacco UseTypesPacks/DayYears UsedDateSmoking Tobacco: FormerCigarettes Smokeless Tobacco: NeverAlcohol UseStandard Drinks/WeekCommentsYes0 (1 standard drink = 0.6 oz pure alcohol)Moderate alcohol useCommentsNoSex and Gender InformationValueDate RecordedSex Assigned at BirthNot on fileLegal SexFemale 06/21/2022 6:58 PM EDTGender IdentityNot on fileSexual OrientationNot on file documented as of this encounter Plan of Treatment DateTypeDepartmentCare Team (Latest Contact Info)Wqnxxiglnja96/04/2027 3:00 PM ESTProcedure Visit [facility] [place] [facility] [address] [place] [address] Oswald Collins, DO [address] [place] [address] documented as of this encounter Procedures Procedure NamePriorityDate/TimeAssociated DiagnosisCommentsMM TOMOSYNTHESIS SCREENING BI03/25/2025 10:08 AM EST documented in this encounter Results * MM TOMOSYNTHESIS SCREENING (03/25/2025 10:08 AM EST)Anatomical Region LateralityModalityOtherSpecimen (Source)Anatomical Location / Laterality Collection Method / VolumeCollection TimeReceived Time03/25/2025 10:08 AM EST Narrative 03/25/2025 10:[address] [facility] ?[address] ? [place] [address] ? Mammography Report ? Signed ? Patient: MARTINA PACK ?MR#: [id number] ?? : 1985 ?Acct:[id number] ?? Age/Sex: 40 / F ?ADM Date: 03/24/25 ?? Loc: MAMMO ? Attending Dr: Oswald Collins D.O. ? Ordering Physician: Oswald Collins D.O. ?Results: ? Date of Service: /16/ ?Follow Up: ? Procedure(s): MM tomosynthesis screening BI ?? Accession Number(s): [id number] ? cc: JOSE ILANG ; Oswald Collins D.O. ? Patient Name: ? MARTINA PACK ? MR#: [id number] ? : 1985 ? Exam Date: 03/24/2025 [...] at age 40. ? LOCATION: ? [facility] ? BREAST COMPOSITION: ? The breasts [...] 03/25/2025 at 10:08 ? Dictated By: ?Ebenezer BandaO. ? Signed By: ?03/25/25 1009 ? DD/ ? TD/TT: ? Handkerchief Presser: Procedure Note Radiology, Radiologist, MD - 03/25/2025 [place] [address] Mammography Report Signed Patient: MARTINA PACK R#: [id number] : 1985Acct:[id number] Age/Sex: 40 / FADM Date: 03/24/25 Loc: MAMMO Attending Dr: Oswald Collins D.O. Ordering Physician: Oswald Collins D.O.Results: Date of Service: 03/24/25Follow Up: Procedure(s): MM tomosynthesis screening BI Accession Number(s): [id number] cc: JOSE LIANG ; Oswald Collins D.O. Patient Name: MARTINA PACK MR#: [id number] : 1985 Exam Date: 03/24/2025 Ordering Doctor: [...] breast cancer at age 40. LOCATION: [facility] BREAST COMPOSITION: The breasts are extremely [...] D.O. Signed By:03/25/25 1009 DD/ 1008 TD/TT: Handkerchief Presser: Authorizing ProviderResult TypeResult StatusCorey Karina DOCLINISYNC IMAGINGFinal Result documented in this encounter Visit Diagnoses Not on filedocumented in this encounter Care Teams Team MemberRelationshipSpecialtyStart [place] [address] [address] [facility] [address] [place] [address] PCP - GeneralFamily Qycpoihq07/4/23documented as of this encounter
--- OUTSIDE RECORDS SUMMARY | 2025-03-30 12:15 | XMS_ITS | Encounter Summary ---
Author Organization [facility] Address [address] [facility] [place] [address] Care Team Providers Care Concrete Mixer Loader Truck Mounted Name Role Phone Jose Larson MD Primary Care Provider [phone] Encounter Details DateTypeDepartmentCare Team (Latest Contact Info)Xgxehzxnraw05/22/2025amboo flowsheet [facility] [address] [place] [address] Kosta Collins DO [address] [place], [place] [address] Social History Tobacco UseTypesPacks/DayYears UsedDateSmoking Tobacco: FormerCigarettes Smokeless Tobacco: NeverAlcohol UseStandard Drinks/WeekCommentsYes0 (1 standard drink = 0.6 oz pure alcohol)Moderate alcohol useCommentsNoSex and Gender InformationValueDate RecordedSex Assigned at BirthNot on fileLegal SexFemale 06/21/2022 6:58 PM EDTGender IdentityNot on fileSexual OrientationNot on file documented as of this encounter Plan of Treatment DateTypeDepartmentCare Team (Latest Contact Info)Xwtnqgtqonw34/04/2027 3:00 PM ESTProcedure Visit [facility] [address] [place] [address] Kosta Collins DO [address] [place], [facility] documented as of this encounter Visit Diagnoses Not on filedocumented in this encounter Care Teams Team MemberRelationshipSpecialtyStart [place] [address] [address] [facility] [address] [place] [address] PCP - GeneralFamily Iiiawpmi42/4/23documented as of this encounter
[2025-04-01 11:09] LABS: Age Gdln ACOG Testing Note (.); IGP, Aptima HPV, rfx 16/18,45 Note (.)
== END 2025-03-30 12:13 | disposition home or self-care (01) ==
LOC: LAB 12:12
PROVIDERS: PCP Family Medicine; Visit Provider Obstetrics & Gynecology
DX: Z01.419 Encounter for gynecological examination (general) (routine) without abnormal findings (principal)
CPT/HCPCS: 88175